=== PATIENT | male | born 1950 | race Caucasian/White ===

== ENCOUNTER 2022-01-11 19:48 | Observation (INO) | payer OTHER ==
--- OUTSIDE RECORDS SUMMARY | 2022-01-11 19:58 | XMS REPORT | Continuity of Care Document ---
:1950 Author Organization [facility] t Address [address] [place] [address] Care Team Providers Name Role Phone DOROTHY MARSHALL Attending Clinician Unavailable Luis Alberto RAND, Horacio Calhoun Attending Clinician Solo De La Rosa Attending Clinician Dorothy Marshall MD Attending Clinician Manny Cooper CRNA Attending Clinician Jon Mcbride MD Attending Clinician Only, Adc Test Attending Clinician Unavailable Doctor Unassigned, [place] Attending Clinician Unavailable Gramm Rosetta ALLEN Attending Clinician DOROTHY MARSHALL Admitting Clinician Unavailable Dorothy Marshall MD Admitting Clinician Payers Payer Name Policy Type Policy Number Effective Date Expiration Date S [facility] [place] \\T\\ [id number] 2017 B 00:00:00 [employer] TRADITIONAL [id number] 2018 00:00:00 Problems Condition Condition Condition Status Onset Resolution Last Treating Co mments Source Name Details Category Date Date Treatment Clinician Date Screening Screening Disease Active Overview: Univers for colon for colon 09-10 Added ity of cancer cancer 00:00: automatic [place] [id number] ally from Medical request Branch for surgery [id number] Essential Essential Disease Active Uni vers hypertensi hypertensi 05-18 it y of on on 00:00: [place] [address] Medical Branch Hypothyroi Hypothyroi Disease Active U nivers d d 05-18 ity of 00:00: [place] [address] Medical Branch Type 2 Type 2 Disease Active Univers diabetes diabetes 1-26 ity of mellitus mellitus 00:00: [place] without without 00 Medical complicati complicati Br anch on on Allergies, Adverse Reactions, Alerts Allergy Allergy Status Severity Reaction(s) Onset Inactive Treating Comm ents Source Name Type Date Date Clinician [place] DRUG Active Rash 2014-04 Univers NE HCL INGREDI 0-27 ity of 00:00: [place] 00 Medical Branch Meperidi Propensi Active Rash 2014-04 Univer s ne Hcl ty to 0-27 ity of adverse 00:00: [place] reaction 00 Medical s Branch Social History Social Habit Start Date Stop Date Quantity Comments Source Exposure to Not sure [facility] SARS-CoV-2 (event) [facility] History of tobacco Cigarette Smoker University of use [facility] Cigarettes smoked 2019-10-14 2019-10-14 Univers ity of current (pack per 00:00:00 00:00:00 [place] ) - Reported Branch Alcohol intake 2019-10-14 2019-10-14 Current drinker Unive rsity of 00:00:00 00:00:[address] [facility] (finding) [place] Tobacco use and 2019-10-14 2019-10-14 Never used Universit y of exposure 00:00:00 00:00:00 [facility] Alcohol Comment 2015-05-18 2015-05-18 occ Universit y of 00:00:00 00:00:00 [facility] Sex [birth year] Universit y of 00:00:00 00:00:00 [facility] Smoking Status Start Date Stop Date Source Current every day smoker 2019-10-14 00:00:00 Uni versity of [facility] Medications Ordered Filled Start Stop Current Ordering Indication Dosage Frequency Signature Comments Components Source Medication Medication Date Date Medication? Clinician (SIG) Name Name DICLOFENAC Yes [id number] TAKE ONE Univers 75 mg EC 3-30 TABLET BY ity of tablet 00:00: MOUTH 00 TWICE A Medical DAY WITH Branch FOOD DICLOFENAC Yes [id number] TAKE ONE Univers 75 mg EC 3-30 TABLET BY ity of tablet 00:00: MOUTH 00 TWICE A Medical DAY WITH Branch FOOD DICLOFENAC Yes [id number] TAKE ONE Univers 75 mg EC 3-30 TABLET BY ity of tablet 00:00: MOUTH 00 TWICE A Medical DAY WITH Branch FOOD DICLOFENAC 2021-0 Yes [id number] TAKE ONE Univers 75 mg EC 3-24 TABLET BY ity of tablet 00:00: MOUTH [place] 00 TWICE A Medical DAY WITH Branch FOOD DICLOFENAC 2020-0 Yes [id number] TAKE ONE Univers 75 mg EC 3-24 TABLET BY ity of tablet 00:00: MOUTH [place] 00 TWICE A Medical DAY WITH Branch FOOD DICLOFENAC 2020-0 2021- No [id number] TAKE ONE Univers 75 mg EC 3-24 03-30 TABLET BY ity o f tablet 00:00: 00:00 MOUTH [place] 00 :00 TWICE A Medical DAY WITH Branch FOOD azithromyci 2020-0 Yes [id number] 500mg Take 1 Univers n 500 mg 3-08 tablet by ity of tablet 00:00: mouth [place] 00 daily. Medical Branch azithromyci 2020-0 Yes [id number] 500mg Take 1 Univers n 500 mg 3-08 tablet by ity of tablet 00:00: mouth [place] 00 daily. Medical Branch azithromyci 2020-0 Yes [id number] 500mg Take 1 Univers n 500 mg 3-08 tablet by ity of tablet 00:00: mouth [place] 00 daily. Medical Branch azithromyci 2020-0 Yes [id number] 500mg Take 1 Univers n 500 mg 3-08 tablet by ity of tablet 00:00: mouth [place] 00 daily. Medical Branch azithromyci 2020-0 Yes [id number] 500mg Take 1 Univers n 500 mg 3-08 tablet by ity of tablet 00:00: mouth [place] 00 daily. Medical Branch azithromyci 2020-0 Yes [id number] 500mg Take 1 Univers n 500 mg 3-08 tablet by ity of tablet 00:00: mouth [place] 00 daily. Medical Branch DICLOFENAC 2020-0 Yes [id number] TAKE ONE Univers 75 mg EC 2-23 TABLET BY ity of tablet 00:00: MOUTH [place] 00 TWICE A Medical DAY WITH Branch FOOD DICLOFENAC 2020-0 Yes [id number] TAKE ONE Univers 75 mg EC 2-23 TABLET BY ity of tablet 00:00: MOUTH [place] 00 TWICE A Medical DAY WITH Branch FOOD DICLOFENAC 1-0 1- No [id number] TAKE ONE Univers 75 mg EC 2-23 03-24 TABLET BY ity o f tablet 00:00: 00:00 MOUTH [place] 00 :00 TWICE A Medical DAY WITH Branch FOOD DICLOFENAC 2021-0 Yes [id number] TAKE ONE Univers 75 mg EC 1-13 TABLET BY ity of tablet 00:00: MOUTH [place] 00 TWICE A Medical DAY WITH Branch FOOD DICLOFENAC 1-0 2021- No [id number] TAKE ONE Univers 75 mg EC 1-13 - TABLET BY ity o f tablet 00:00: 00:00 MOUTH [place] 00 :00 TWICE A Medical DAY WITH Branch FOOD DICLOFENAC 2020-1 Yes [id number] TAKE ONE Univers 75 mg EC 2-11 TABLET BY ity of tablet 00:00: MOUTH [place] 00 TWICE A Medical DAY WITH Branch FOOD DICLOFENAC 2020-1 2020- No [id number] TAKE ONE Univers 75 mg EC 2-11 - TABLET BY ity o f tablet 00:00: 00:00 MOUTH [place] 00 :00 TWICE A Medical DAY WITH Branch FOOD TRIAMCINOLO 2020-1 Yes [id number] APPLY U nivers NE 2-09 CREAM ity of ACETONIDE 00:00: EXTERNALLY [place] 0.1 % cream 00 TO Medical AFFECTED Branch AREA TWICE DAILY MIX WITH CLOTRIMAZO LE TRIAMCINOLO 2020-1 Yes [id number] APPLY U nivers NE 2-09 CREAM ity of ACETONIDE 00:00: EXTERNALLY [place] 0.1 % cream 00 TO Medical AFFECTED Branch AREA TWICE DAILY MIX WITH CLOTRIMAZO LE TRIAMCINOLO 2020-1 Yes [id number] APPLY U nivers NE 2-09 CREAM ity of ACETONIDE 00:00: EXTERNALLY [place] 0.1 % cream 00 TO Medical AFFECTED Branch AREA TWICE DAILY MIX WITH CLOTRIMAZO LE TRIAMCINOLO 2020-1 Yes [id number] APPLY U nivers NE 2-09 CREAM ity of ACETONIDE 00:00: EXTERNALLY [place] 0.1 % cream 00 TO Medical AFFECTED Branch AREA TWICE DAILY MIX WITH CLOTRIMAZO LE TRIAMCINOLO 2020-1 Yes [id number] APPLY U nivers NE 2-09 CREAM ity of ACETONIDE 00:00: EXTERNALLY [place] 0.1 % cream 00 TO Medical AFFECTED Branch AREA TWICE DAILY MIX WITH CLOTRIMAZO LE TRIAMCINOLO 2020-1 Yes [id number] APPLY U nivers NE 2-09 CREAM ity of ACETONIDE 00:00: EXTERNALLY [place] 0.1 % cream 00 TO Medical AFFECTED Branch AREA TWICE DAILY MIX WITH CLOTRIMAZO LE TRIAMCINOLO 2020-1 Yes [id number] APPLY U nivers NE 2-09 CREAM ity of ACETONIDE 00:00: EXTERNALLY [place] 0.1 % cream 00 TO Medical AFFECTED Branch AREA TWICE DAILY MIX WITH CLOTRIMAZO LE TRIAMCINOLO 2020-1 Yes [id number] APPLY U nivers NE 2-09 CREAM ity of ACETONIDE 00:00: EXTERNALLY [place] 0.1 % cream 00 TO Medical AFFECTED Branch AREA TWICE DAILY MIX WITH CLOTRIMAZO LE TRIAMCINOLO 2020- Yes [id number] APPLY U nivers NE 2-09 CREAM ity of ACETONIDE 00:00: EXTERNALLY [place] 0.1 % cream 00 TO Medical AFFECTED Branch AREA TWICE DAILY MIX WITH CLOTRIMAZO LE TRIAMCINOLO 2020- Yes [id number] APPLY U nivers NE 2-09 CREAM ity of ACETONIDE 00:00: EXTERNALLY [place] 0.1 % cream 00 TO Medical AFFECTED Branch AREA TWICE DAILY MIX WITH CLOTRIMAZO LE TRIAMCINOLO 2020- Yes [id number] APPLY U nivers NE 2-09 CREAM ity of ACETONIDE 00:00: EXTERNALLY [place] 0.1 % cream 00 TO Medical AFFECTED Branch AREA TWICE DAILY MIX WITH CLOTRIMAZO LE DICLOFENAC 2020- Yes [id number] TAKE ONE Univers 75 mg EC 1-17 TABLET BY ity of tablet 00:00: MOUTH [place] 00 TWICE A Medical DAY WITH [place] FOOD DICLOFENAC 2020-1 Yes [id number] TAKE ONE Univers 75 mg EC 1-17 TABLET BY ity of tablet 00:00: MOUTH [place] 00 TWICE A Medical DAY WITH Branch FOOD DICLOFENAC 2020-1 Yes [id number] TAKE ONE Univers 75 mg EC 1-17 TABLET BY ity of tablet 00:00: MOUTH [place] 00 TWICE A Medical DAY WITH Branch FOOD DICLOFENAC 2020-1 2020- No [id number] TAKE ONE Univers 75 mg EC 1-17 12-11 TABLET BY ity o f tablet 00:00: 00:00 MOUTH [place] 00 :00 TWICE A Medical DAY WITH Branch FOOD DICLOFENAC 2020-1 Yes [id number] TAKE ONE Univers 75 mg EC 0-13 TABLET BY ity of tablet 00:00: MOUTH [place] 00 TWICE A Medical DAY WITH Branch FOOD DICLOFENAC 2020-1 2020- No [id number] TAKE ONE Univers 75 mg EC 0-13 11-17 TABLET BY ity o f tablet 00:00: 00:00 MOUTH [place] 00 :00 TWICE A Medical DAY WITH [place] FOOD DICLOFENAC 2020-0 Yes [id number] TAKE ONE Univers 75 mg EC 9-09 TABLET BY ity of tablet 00:00: MOUTH [place] 00 TWICE A Medical DAY WITH Branch FOOD DICLOFENAC 2020-0 2020- No [id number] TAKE ONE Univers 75 mg EC 9-09 10-13 TABLET BY ity o f tablet 00:00: 00:00 MOUTH [place] 00 :00 TWICE A Medical DAY WITH Branch FOOD TRIAMCINOLO 2020-0 Yes [id number] APPLY TO [facility] 8-25 AFFECTED ity of ACETONIDE 00:00: AREAS TWO [place] 0.1 % cream 00 TIMES A Medic al DAY (MIX Branch WITH CLOTRIMAZO LE) TRIAMCINOLO 2020-0 Yes [id number] APPLY TO [facility] 825 AFFECTED ity of ACETONIDE 00:00: AREAS TWO [place] 0.1 % cream 00 TIMES A Medic al DAY (MIX Branch WITH CLOTRIMAZO LE) TRIAMCINOLO 2020-0 Yes [id number] APPLY TO [facility] 8 AFFECTED ity of ACETONIDE 00:00: AREAS TWO [place] 0.1 % cream 00 TIMES A Medic al DAY (MIX Branch WITH CLOTRIMAZO LE) TRIAMCINOLO 2020-0 Yes [id number] APPLY TO [facility] 825 AFFECTED ity of ACETONIDE 00:00: AREAS TWO [place] 0.1 % cream 00 TIMES A Medic al DAY (MIX Branch WITH CLOTRIMAZO LE) TRIAMCINOLO 2020-0 2020- No [id number] APPLY TO [facility] 8- 12 AFFECTED ity of ACETONIDE 00:00: 00:00 AREAS TWO [place] 0.1 % cream 00 :00 TIMES A Medic al DAY (MIX Branch WITH CLOTRIMAZO LE) TRIAMCINOLO 2020-0 2020- No [id number] APPLY TO [facility] 8-25 12 AFFECTED ity of ACETONIDE 00:00: 00:00 AREAS TWO [place] 0.1 % cream 00 :00 TIMES A Medic al DAY (MIX Branch WITH CLOTRIMAZO LE) DICLOFENAC 2020-0 Yes [id number] TAKE ONE Univers 75 mg EC 8-10 TABLET BY ity of tablet 00:00: MOUTH [place] 00 TWICE A Medical DAY WITH Branch FOOD DICLOFENAC 2020-0 Yes [id number] TAKE ONE Univers 75 mg EC 8-10 TABLET BY ity of tablet 00:00: MOUTH [place] 00 TWICE A Medical DAY WITH [place] FOOD DICLOFENAC 2020-0 2020- No [id number] TAKE ONE Univers 75 mg EC 8-10 09-09 TABLET BY ity o f tablet 00:00: 00:00 MOUTH [place] 00 :00 TWICE A Medical DAY WITH Branch FOOD TRIAMCINOLO 2020-0 Yes [id number] APPLY TO [facility] NE 7-16 AFFECTED ity of ACETONIDE 00:00: AREAS TWO [place] 0.1 % cream 00 TIMES A Medic al DAY (MIX Branch WITH CLOTRIMAZO LE) TRIAMCINOLO 2020-0 Yes [id number] APPLY TO [facility] NE 7-16 AFFECTED ity of ACETONIDE 00:00: AREAS TWO [place] 0.1 % cream 00 TIMES A Medic al DAY (MIX Branch WITH CLOTRIMAZO LE) TRIAMCINOLO 2020-0 2020- No [id number] APPLY TO [facility] NE 7-16 08-25 AFFECTED ity of ACETONIDE 00:00: 00:00 AREAS TWO [place] 0.1 % cream 00 :00 TIMES A Medic al DAY (MIX Branch WITH CLOTRIMAZO LE) DICLOFENAC 2020-0 Yes [id number] TAKE ONE Univers 75 mg EC 7-06 TABLET BY ity of tablet 00:00: MOUTH [place] 00 TWICE A Medical DAY WITH [place] FOOD DICLOFENAC 2020-0 Yes [id number] TAKE ONE Univers 75 mg EC 7-06 TABLET BY ity of tablet 00:00: MOUTH [place] 00 TWICE A Medical DAY WITH [place] FOOD DICLOFENAC 2020-0 2020- No [id number] TAKE ONE Univers 75 mg EC 7-06 08-10 TABLET BY ity o f tablet 00:00: 00:00 MOUTH [place] 00 :00 TWICE A Medical DAY WITH [place] FOOD azithromyci 2020-0 Yes [id number] 500mg Take 1 Univers n 500 mg 6-24 tablet by ity of tablet 00:00: mouth [place] 00 daily. Medical Branch azithromyci 2020-0 Yes [id number] 500mg Take 1 Univers n 500 mg 6-24 tablet by ity of tablet 00:00: mouth [place] 00 daily. Medical [place] azithromyci 2020-0 Yes [id number] 500mg Take 1 Univers n 500 mg 6-24 tablet by ity of tablet 00:00: mouth [place] 00 daily. Medical [place] azithromyci 2020-0 Yes [id number] 500mg Take 1 Univers n 500 mg 6-24 tablet by ity of tablet 00:00: mouth [place] 00 daily. Medical Branch azithromyci 2020-0 Yes [id number] 500mg Take 1 Univers n 500 mg 6-24 tablet by ity of tablet 00:00: mouth [place] 00 daily. Medical Branch azithromyci 2020-0 Yes [id number] 500mg Take 1 Univers n 500 mg 6-24 tablet by ity of tablet 00:00: mouth [place] 00 daily. Medical Branch azithromyci 2020-0 Yes [id number] 500mg Take 1 Univers n 500 mg 6-24 tablet by ity of tablet 00:00: mouth [place] 00 daily. Medical Branch azithromyci 2020-0 Yes [id number] 500mg Take 1 Univers n 500 mg 6-24 tablet by ity of tablet 00:00: mouth [place] 00 daily. Medical Branch azithromyci 2020-0 Yes [id number] 500mg Take 1 Univers n 500 mg 6-24 tablet by ity of tablet 00:00: mouth [place] 00 daily. Medical Branch azithromyci 2020-0 Yes [id number] 500mg Take 1 Univers n 500 mg 6-24 tablet by ity of tablet 00:00: mouth [place] 00 daily. Medical Branch azithromyci 2020-0 Yes [id number] 500mg Take 1 Univers n 500 mg 6-24 tablet by ity of tablet 00:00: mouth [place] 00 daily. Medical Branch azithromyci 2020-0 Yes [id number] 500mg Take 1 Univers n 500 mg 6-24 tablet by ity of tablet 00:00: mouth [place] 00 daily. Medical Branch azithromyci 2020-0 Yes [id number] 500mg Take 1 Univers n 500 mg 6-24 tablet by ity of tablet 00:00: mouth [place] 00 daily. Medical Branch azithromyci 2020-0 2021- No [id number] 500mg Take 1 Univers n 500 mg 6-24 03-08 tablet by ity o f tablet 00:00: 00:00 mouth [place] 00 :00 daily. Medical Branch Foam 2020-0 Yes [id number] Use as Univers Bandage 6-23 directed ity of (MEPILEX) 4 00:00: [place] X 4 " Bndg 00 Medical Branch Foam 2020-0 Yes [id number] Use as Univers Bandage 6-23 directed ity of (MEPILEX) 4 00:00: [place] X 4 " Bndg 00 Medical Branch Foam 2020-0 Yes [id number] Use as Univers Bandage 6-23 directed ity of (MEPILEX) 4 00:00: [place] X 4 " Bndg Medical Branch Foam 2020-0 Yes [id number] Use as Univers Bandage 6-23 directed ity of (MEPILEX) 4 00:00: [place] X 4 " Bndg Medical Branch Foam 2020-0 Yes [id number] Use as Univers Bandage 6-23 directed ity of (MEPILEX) 4 00:00: [place] X 4 " Bndg Medical Branch Foam 2020-0 Yes [id number] Use as Univers Bandage 6-23 directed ity of (MEPILEX) 4 00:00: [place] X 4 " Bn Medical Branch Foam 2020-0 Yes [id number] Use as Univers Bandage 6-23 directed ity of (MEPILEX) 4 00:00: [place] X 4 " Bn Medical Branch Foam 2020-0 Yes [id number] Use as Univers Bandage 6-23 directed ity of (MEPILEX) 4 00:00: [place] X 4 " Bn Medical Branch Foam 2020-0 Yes [id number] Use as Univers Bandage 6-23 directed ity of (MEPILEX) 4 00:00: [place] X 4 " Bn Medical Branch Foam 2020-0 Yes [id number] Use as Univers Bandage 6-23 directed ity of (MEPILEX) 4 00:00: [place] X 4 " Bn Medical Branch Foam 2020-0 Yes [id number] Use as Univers Bandage 6-23 directed ity of (MEPILEX) 4 00:00: [place] X 4 " Bn Medical Branch Foam 2020-0 Yes [id number] Use as Univers Bandage 6-23 directed ity of (MEPILEX) 4 00:00: [place] X 4 " Bndg Medical Branch Foam 2020-0 Yes [id number] Use as Univers Bandage 6-23 directed ity of (MEPILEX) 4 00:00: [place] X 4 " Bndg Medical Branch Foam 2020-0 Yes [id number] Use as Univers Bandage 6-23 directed ity of (MEPILEX) 4 00:00: [place] X 4 " Bndg Medical Branch Foam 2020-0 Yes [id number] Use as Univers Bandage 6-23 directed ity of (MEPILEX) 4 00:00: [place] X 4 " Bn Medical Branch Foam 2020-0 Yes [id number] Use as Univers Bandage 6-23 directed ity of (MEPILEX) 4 00:00: [place] X 4 " Bndg Medical Branch Foam 2019-0 Yes [id number] Use as Univers Bandage 6-23 directed ity of (MEPILEX) 4 00:00: [place] X 4 " Bndg Medical Branch Foam 2019-0 Yes [id number] Use as Univers Bandage 6-23 directed ity of (MEPILEX) 4 00:00: [place] X 4 " Bn Medical Branch Foam 2019-0 Yes [id number] Use as Univers Bandage 6-23 directed ity of (MEPILEX) 4 00:00: [place] X 4 " Bn Medical Branch Foam 2019-0 Yes [id number] Use as Univers Bandage 6-23 directed ity of (MEPILEX) 4 00:00: [place] X 4 " [facility] Medical Branch Foam 0 Yes [id number] Use as Univers Bandage 6-23 directed ity of (MEPILEX) 4 00:00: [place] X 4 " [facility] Medical Branch losartan-hy 2020-0 Yes 1{tbl} Take 1 Tab Univers drochloroth 6-05 by mouth ity of iazide 18:15: daily. [place] (HYZAAR) 18 Medical 100-25 mg Branch per tablet carvedilol 2019-0 Yes 6.25mg Take 6.25 Univers (COREG) 6-05 mg by ity of 6.25 mg 18:15: mouth 2 [place] tablet 18 (two) Medical times Branch daily with meals. levothyroxi 2020-0 Yes 100ug Take 100 U nivers ne 6-05 mcg by ity of (SYNTHROID) 18:15: mouth [place] 75 mcg 18 every Medical tablet morning. Branch Liraglutide 2019-0 Yes inject Univ ers (VICTOZA 6-05 under the ity of 2-TALA) 0.6 18:15: skin. [place] mg/0.1 mL 18 Medical (18 mg/3 Branch mL) injection metFORMIN 2019-0 Yes 500mg Take 500 Uni vers 500 mg 6-05 mg by ity of tablet 18:15: mouth 2 [place] 18 (two) Medical times Branch daily with meals. ERGOCALCIFE 2020-0 Yes Take by Uni vers ROL, 6-05 mouth. ity of VITAMIN D2, 18:15: [place] (VITAMIN D 18 Medical ORAL) Branch vitamin 2020-0 Yes 1000ug Take 1,000 Un shanae B-12 6-05 mcg by ity of (VITAMIN 18:15: mouth [place] B-12) 1,000 18 daily. Medica l mcg tablet Branch losartan-hy 2020-0 Yes 1{tbl} Take 1 Tab Univers drochloroth 6-05 by mouth ity of iazide 18:15: daily. [place] (HYZAAR) 18 Medical 100-25 mg Branch per tablet carvedilol 2020-0 Yes 6.25mg Take 6.25 Univers (COREG) 6-05 mg by ity of 6.25 mg 18:15: mouth 2 [place] tablet 18 (two) Medical times Branch daily with meals. levothyroxi 2020-0 Yes 100ug Take 100 U nivers ne 6-05 mcg by ity of (SYNTHROID) 18:15: mouth [place] 75 mcg 18 every Medical tablet morning. Branch Liraglutide 2020-0 Yes inject Univ ers (VICTOZA 6-05 under the ity of 2-TALA) 0.6 18:15: skin. [place] mg/0.1 mL 18 Medical (18 mg/3 Branch mL) injection metFORMIN 2020-0 Yes 500mg Take 500 Uni vers 500 mg 6-05 mg by ity of tablet 18:15: mouth 2 [place] 18 (two) Medical times Branch daily with meals. ERGOCALCIFE 2020-0 Yes Take by Uni vers ROL, 6-05 mouth. ity of VITAMIN D2, 18:15: [place] (VITAMIN D 18 Medical ORAL) Branch vitamin 2020-0 Yes 1000ug Take 1,000 Un shanae B-12 6-05 mcg by ity of (VITAMIN 18:15: mouth [place] B-12) 1,000 18 daily. Medica l mcg tablet Branch losartan-hy 2020-0 Yes 1{tbl} Take 1 Tab Univers drochloroth 6-05 by mouth ity of iazide 18:15: daily. [place] (HYZAAR) 18 Medical 100-25 mg Branch per tablet carvedilol 2020-0 Yes 6.25mg Take 6.25 Univers (COREG) 6-05 mg by ity of 6.25 mg 18:15: mouth 2 [place] tablet 18 (two) Medical times Branch daily with meals. levothyroxi 2020-0 Yes 100ug Take 100 U nivers ne 6-05 mcg by ity of (SYNTHROID) 18:15: mouth [place] 75 mcg 18 every Medical tablet morning. Branch Liraglutide 2020-0 Yes inject Univ ers (VICTOZA 6-05 under the ity of 2-TALA) 0.6 18:15: skin. [place] mg/0.1 mL 18 Medical (18 mg/3 Branch mL) injection metFORMIN 2020-0 Yes 500mg Take 500 Uni vers 500 mg 6-05 mg by ity of tablet 18:15: mouth 2 [place] 18 (two) Medical times Branch daily with meals. ERGOCALCIFE 2020-0 Yes Take by Uni vers ROL, 6-05 mouth. ity of VITAMIN D2, 18:15: [place] (VITAMIN D 18 Medical ORAL) Branch vitamin 2020-0 Yes 1000ug Take 1,000 Un shanae B-12 6-05 mcg by ity of (VITAMIN 18:15: mouth [place] B-12) 1,000 18 daily. Medica l mcg tablet Branch losartan-hy 2020-0 Yes 1{tbl} Take 1 Tab Univers drochloroth 6-05 by mouth ity of iazide 18:15: daily. [place] (HYZAAR) 18 Medical 100-25 mg Branch per tablet carvedilol 2020-0 Yes 6.25mg Take 6.25 Univers (COREG) 6-05 mg by ity of 6.25 mg 18:15: mouth 2 [place] tablet 18 (two) Medical times Branch daily with meals. levothyroxi 2020-0 Yes 100ug Take 100 U nivers ne 6-05 mcg by ity of (SYNTHROID) 18:15: mouth [place] 75 mcg 18 every Medical tablet morning. Branch Liraglutide 2020-0 Yes inject Univ ers (VICTOZA 6-05 under the ity of 2-TALA) 0.6 18:15: skin. [place] mg/0.1 mL 18 Medical (18 mg/3 Branch mL) injection metFORMIN 2020-0 Yes 500mg Take 500 Uni vers 500 mg 6-05 mg by ity of tablet 18:15: mouth 2 [place] 18 (two) Medical times Branch daily with meals. ERGOCALCIFE 2020-0 Yes Take by Uni vers ROL, 6-05 mouth. ity of VITAMIN D2, 18:15: [place] (VITAMIN D 18 Medical ORAL) Branch vitamin 2020-0 Yes 1000ug Take 1,000 Un shanae B-12 6-05 mcg by ity of (VITAMIN 18:15: mouth [place] B-12) 1,000 18 daily. Medica l mcg tablet Branch losartan-hy 2020-0 Yes 1{tbl} Take 1 Tab Univers drochloroth 6-05 by mouth ity of iazide 18:15: daily. [place] (HYZAAR) 18 Medical 100-25 mg Branch per tablet carvedilol 2020-0 Yes 6.25mg Take 6.25 Univers (COREG) 6-05 mg by ity of 6.25 mg 18:15: mouth 2 [place] tablet 18 (two) Medical times Branch daily with meals. levothyroxi 2020-0 Yes 100ug Take 100 U nivers ne 6-05 mcg by ity of (SYNTHROID) 18:15: mouth [place] 75 mcg 18 every Medical tablet morning. Branch Liraglutide 2020-0 Yes inject Univ ers (VICTOZA 6-05 under the ity of 2-TALA) 0.6 18:15: skin. [place] mg/0.1 mL 18 Medical (18 mg/3 Branch mL) injection metFORMIN 2020-0 Yes 500mg Take 500 Uni vers 500 mg 6-05 mg by ity of tablet 18:15: mouth 2 [place] 18 (two) Medical times Branch daily with meals. ERGOCALCIFE 2020-0 Yes Take by Uni vers ROL, 6-05 mouth. ity of VITAMIN D2, 18:15: [place] (VITAMIN D 18 Medical ORAL) Branch vitamin 2020-0 Yes 1000ug Take 1,000 Un shanae B-12 6-05 mcg by ity of (VITAMIN 18:15: mouth [place] B-12) 1,000 18 daily. Medica l mcg tablet Branch losartan-hy 2020-0 Yes 1{tbl} Take 1 Tab Univers drochloroth 6-05 by mouth ity of iazide 18:15: daily. [place] (HYZAAR) 18 Medical 100-25 mg Branch per tablet carvedilol 2020-0 Yes 6.25mg Take 6.25 Univers (COREG) 6-05 mg by ity of 6.25 mg 18:15: mouth 2 [place] tablet 18 (two) Medical times Branch daily with meals. levothyroxi 2020-0 Yes 100ug Take 100 U nivers ne 6-05 mcg by ity of (SYNTHROID) 18:15: mouth [place] 75 mcg 18 every Medical tablet morning. Branch Liraglutide 2020-0 Yes inject Univ ers (VICTOZA 6-05 under the ity of 2-TALA) 0.6 18:15: skin. [place] mg/0.1 mL 18 Medical (18 mg/3 Branch mL) injection metFORMIN 2020-0 Yes 500mg Take 500 Uni vers 500 mg 6-05 mg by ity of tablet 18:15: mouth 2 [place] 18 (two) Medical times Branch daily with meals. ERGOCALCIFE 2020-0 Yes Take by Uni vers ROL, 6-05 mouth. ity of VITAMIN D2, 18:15: [place] (VITAMIN D 18 Medical ORAL) Branch vitamin 2020-0 Yes 1000ug Take 1,000 Un shanae B-12 6-05 mcg by ity of (VITAMIN 18:15: mouth [place] B-12) 1,000 18 daily. Medica l mcg tablet Branch losartan-hy 2020-0 Yes 1{tbl} Take 1 Tab Univers drochloroth 6-05 by mouth ity of iazide 18:15: daily. [place] (HYZAAR) 18 Medical 100-25 mg Branch per tablet carvedilol 2020-0 Yes 6.25mg Take 6.25 Univers (COREG) 6-05 mg by ity of 6.25 mg 18:15: mouth 2 [place] tablet 18 (two) Medical times Branch daily with meals. levothyroxi 2020-0 Yes 100ug Take 100 U nivers ne 6-05 mcg by ity of (SYNTHROID) 18:15: mouth [place] 75 mcg 18 every Medical tablet morning. Branch Liraglutide 2020-0 Yes inject Univ ers (VICTOZA 6-05 under the ity of 2-TALA) 0.6 18:15: skin. [place] mg/0.1 mL 18 Medical (18 mg/3 Branch mL) injection metFORMIN 2020-0 Yes 500mg Take 500 Uni vers 500 mg 6-05 mg by ity of tablet 18:15: mouth 2 [place] 18 (two) Medical times Branch daily with meals. ERGOCALCIFE 2020-0 Yes Take by Uni vers ROL, 6-05 mouth. ity of VITAMIN D2, 18:15: [place] (VITAMIN D 18 Medical ORAL) Branch vitamin 2020-0 Yes 1000ug Take 1,000 Un shanae B-12 6-05 mcg by ity of (VITAMIN 18:15: mouth [place] B-12) 1,000 18 daily. Medica l mcg tablet Branch losartan-hy 2020-0 Yes 1{tbl} Take 1 Tab Univers drochloroth 6-05 by mouth ity of iazide 18:15: daily. [place] (HYZAAR) 18 Medical 100-25 mg Branch per tablet carvedilol 2020-0 Yes 6.25mg Take 6.25 [facility] (COREG) 6-05 mg by ity of 6.25 mg 18:15: mouth 2 [place] tablet 18 (two) Medical times Branch daily with meals. levothyroxi 2020-0 Yes 100ug Take 100 U nivers ne 6-05 mcg by ity of (SYNTHROID) 18:15: mouth [place] 75 mcg 18 every Medical tablet morning. Branch Liraglutide 2020-0 Yes inject Univ ers (VICTOZA 6-05 under the ity of 2-TALA) 0.6 18:15: skin. [place] mg/0.1 mL 18 Medical (18 mg/3 Branch mL) injection metFORMIN 2020-0 Yes 500mg Take 500 Uni vers 500 mg 6-05 mg by ity of tablet 18:15: mouth 2 [place] 18 (two) Medical times Branch daily with meals. ERGOCALCIFE 2020-0 Yes Take by Uni vers ROL, 6-05 mouth. ity of VITAMIN D2, 18:15: [place] (VITAMIN D 18 Medical ORAL) Branch vitamin 2020-0 Yes 1000ug Take 1,000 Un shanae B-12 6-05 mcg by ity of (VITAMIN 18:15: mouth [place] B-12) 1,000 18 daily. Medica l mcg tablet Branch losartan-hy 2020-0 Yes 1{tbl} Take 1 Tab [facility] drochloroth 6-05 by mouth ity of iazide 18:15: daily. [place] (HYZAAR) 18 Medical 100-25 mg Branch per tablet carvedilol 2020-0 Yes 6.25mg Take 6.25 [facility] (COREG) 6-05 mg by ity of 6.25 mg 18:15: mouth 2 [place] tablet 18 (two) Medical times Branch daily with meals. levothyroxi 2020-0 Yes 100ug Take 100 U nivers ne 6-05 mcg by ity of (SYNTHROID) 18:15: mouth [place] 75 mcg 18 every Medical tablet morning. Branch Liraglutide 2020-0 Yes inject Univ ers (VICTOZA 6-05 under the ity of 2-TALA) 0.6 18:15: skin. [place] mg/0.1 mL 18 Medical (18 mg/3 Branch mL) injection metFORMIN 2020-0 Yes 500mg Take 500 Uni vers 500 mg 6-05 mg by ity of tablet 18:15: mouth 2 [place] 18 (two) Medical times Branch daily with meals. ERGOCALCIFE 2020-0 Yes Take by Uni vers ROL, 6-05 mouth. ity of VITAMIN D2, 18:15: [place] (VITAMIN D 18 Medical ORAL) Branch vitamin 2020-0 Yes 1000ug Take 1,000 Un shanae B-12 6-05 mcg by ity of (VITAMIN 18:15: mouth [place] B-12) 1,000 18 daily. Medica l mcg tablet Branch losartan-hy 2020-0 Yes 1{tbl} Take 1 Tab [facility] drochloroth 6-05 by mouth ity of iazide 18:15: daily. [place] (HYZAAR) 18 Medical 100-25 mg Branch per tablet carvedilol 2020-0 Yes 6.25mg Take 6.25 [facility] (COREG) 6-05 mg by ity of 6.25 mg 18:15: mouth 2 [place] tablet 18 (two) Medical times Branch daily with meals. levothyroxi 2020-0 Yes 100ug Take 100 U nivers ne 6-05 mcg by ity of (SYNTHROID) 18:15: mouth [place] 75 mcg 18 every Medical tablet morning. Branch Liraglutide 2020-0 Yes inject [facility] ers (VICTOZA 6-05 under the ity of 2-TALA) 0.6 18:15: skin. [place] mg/0.1 mL 18 Medical (18 mg/3 Branch mL) injection metFORMIN 2020-0 Yes 500mg Take 500 [facility] vers 500 mg 6-05 mg by ity of tablet 18:15: mouth 2 [place] 18 (two) Medical times Branch daily with meals. ERGOCALCIFE 2020-0 Yes Take by Uni vers ROL, 6-05 mouth. ity of VITAMIN D2, 18:15: [place] (VITAMIN D 18 Medical ORAL) Branch vitamin 2020-0 Yes 1000ug Take 1,000 Un [place]ana[place] B-12 6-05 mcg by ity of (VITAMIN 18:15: mouth [place] B-12) 1,000 18 daily. Medica l mcg tablet Branch losartan-hy 2020-0 Yes 1{tbl} Take 1 Tab [facility] drochloroth 6-05 by mouth ity of iazide 18:15: daily. [place] (HYZAAR) 18 Medical 100-25 mg Branch per tablet carvedilol 2020-0 Yes 6.25mg Take 6.25 [facility] (COREG) 6-05 mg by ity of 6.25 mg 18:15: mouth 2 [place] tablet 18 (two) Medical times Branch daily with meals. levothyroxi 2020-0 Yes 100ug Take 100 U nivers ne 6-05 mcg by ity of (SYNTHROID) 18:15: mouth [place] 75 mcg 18 every Medical tablet morning. Branch Liraglutide 2020-0 Yes inject [facility] ers (VICTOZA 6-05 under the ity of 2-TALA) 0.6 18:15: skin. [place] mg/0.1 mL 18 Medical (18 mg/3 Branch mL) injection metFORMIN 2020-0 Yes 500mg Take 500 [facility] vers 500 mg 6-05 mg by ity of tablet 18:15: mouth 2 [place] 18 (two) Medical times Branch daily with meals. ERGOCALCIFE 2020-0 Yes Take by Uni vers ROL, 6-05 mouth. ity of VITAMIN D2, 18:15: [place] (VITAMIN D 18 Medical ORAL) Branch vitamin 2020-0 Yes 1000ug Take 1,000 Un shana[place] B-12 6-05 mcg by ity of (VITAMIN 18:15: mouth [place] B-12) 1,000 18 daily. Medica l mcg tablet Branch losartan-hy 2020-0 Yes 1{tbl} Take 1 Tab [facility] drochloroth 6-05 by mouth ity of iazide 18:15: daily. [place] (HYZAAR) 18 Medical 100-25 mg Branch per tablet carvedilol 2020-0 Yes 6.25mg Take 6.25 [facility] (COREG) 6-05 mg by ity of 6.25 mg 18:15: mouth 2 [place] tablet 18 (two) Medical times Branch daily with meals. levothyroxi 2020-0 Yes 100ug Take 100 U nivers ne 6-05 mcg by ity of (SYNTHROID) 18:15: mouth [place] 75 mcg 18 every Medical tablet morning. Branch Liraglutide 2020-0 Yes inject [facility] ers (VICTOZA 6-05 under the ity of 2-TALA) 0.6 18:15: skin. [place] mg/0.1 mL 18 Medical (18 mg/3 Branch mL) injection metFORMIN 2020-0 Yes 500mg Take 500 [facility] vers 500 mg 6-05 mg by ity of tablet 18:15: mouth 2 [place] 18 (two) Medical times Branch daily with meals. ERGOCALCIFE 2020-0 Yes Take by Uni vers ROL, 6-05 mouth. ity of VITAMIN D2, 18:15: [place] (VITAMIN D 18 Medical ORAL) Branch vitamin 2020-0 Yes 1000ug Take 1,000 Un [place] B-12 6-05 mcg by ity of (VITAMIN 18:15: mouth [place] B-12) 1,000 18 daily. Medica l mcg tablet Branch losartan-hy 2020-0 Yes 1{tbl} Take 1 Tab [facility] drochloroth 6-05 by mouth ity of iazide 18:15: daily. [place] (HYZAAR) 18 Medical 100-25 mg Branch per tablet carvedilol 2020-0 Yes 6.25mg Take 6.25 [facility] (COREG) 6-05 mg by ity of 6.25 mg 18:15: mouth 2 [place] tablet 18 (two) Medical times Branch daily with meals. levothyroxi 2020-0 Yes 100ug Take 100 U nivers ne 6-05 mcg by ity of (SYNTHROID) 18:15: mouth [place] 75 mcg 18 every Medical tablet morning. Branch Liraglutide 2020-0 Yes inject [facility] ers (VICTOZA 6-05 under the ity of 2-TALA) 0.6 18:15: skin. [place] mg/0.1 mL 18 Medical (18 mg/3 Branch mL) injection metFORMIN 2020-0 Yes 500mg Take 500 [facility] vers 500 mg 6-05 mg by ity of tablet 18:15: mouth 2 [place] 18 (two) Medical times Branch daily with meals. ERGOCALCIFE 2020-0 Yes Take by Uni vers ROL, 6-05 mouth. ity of VITAMIN D2, 18:15: [place] (VITAMIN D 18 Medical ORAL) Branch vitamin 2020-0 Yes 1000ug Take 1,000 Un [place] B-12 6-05 mcg by ity of (VITAMIN 18:15: mouth [place] B-12) 1,000 18 daily. Medica l mcg tablet Branch losartan-hy 2020-0 Yes 1{tbl} Take 1 Tab [facility] drochloroth 6-05 by mouth ity of iazide 18:15: daily. [place] (HYZAAR) 18 Medical 100-25 mg Branch per tablet carvedilol 2020-0 Yes 6.25mg Take 6.25 [facility] (COREG) 6-05 mg by ity of 6.25 mg 18:15: mouth 2 [place] tablet 18 (two) Medical times Branch daily with meals. levothyroxi 2020-0 Yes 100ug Take 100 U nivers ne 6-05 mcg by ity of (SYNTHROID) 18:15: mouth [place] 75 mcg 18 every Medical tablet morning. Branch Liraglutide 2020-0 Yes inject [facility] ers (VICTOZA 6-05 under the ity of 2-TALA) 0.6 18:15: skin. [place] mg/0.1 mL 18 Medical (18 mg/3 Branch mL) injection metFORMIN 2020-0 Yes 500mg Take 500 [facility] vers 500 mg 6-05 mg by ity of tablet 18:15: mouth 2 [place] 18 (two) Medical times Branch daily with meals. ERGOCALCIFE 2020-0 Yes Take by Uni vers ROL, 6-05 mouth. ity of VITAMIN D2, 18:15: [place] (VITAMIN D 18 Medical ORAL) Branch vitamin 2020-0 Yes 1000ug Take 1,000 Un [place]ana[place] B-12 6-05 mcg by ity of (VITAMIN 18:15: mouth [place] B-12) 1,000 18 daily. Medica l mcg tablet Branch losartan-hy 2020-0 Yes 1{tbl} Take 1 Tab [facility] drochloroth 6-05 by mouth ity of iazide 18:15: daily. [place] (HYZAAR) 18 Medical 100-25 mg Branch per tablet carvedilol 2020-0 Yes 6.25mg Take 6.25 [facility] (COREG) 6-05 mg by ity of 6.25 mg 18:15: mouth 2 [place] tablet 18 (two) Medical times Branch daily with meals. levothyroxi 2020-0 Yes 100ug Take 100 U nivers ne 6-05 mcg by ity of (SYNTHROID) 18:15: mouth [place] 75 mcg 18 every Medical tablet morning. Branch Liraglutide 2020-0 Yes inject [facility] ers (VICTOZA 6-05 under the ity of 2-TALA) 0.6 18:15: skin. [place] mg/0.1 mL 18 Medical (18 mg/3 Branch mL) injection metFORMIN 2020-0 Yes 500mg Take 500 [facility] vers 500 mg 6-05 mg by ity of tablet 18:15: mouth 2 [place] 18 (two) Medical times Branch daily with meals. ERGOCALCIFE 2020-0 Yes Take by Uni vers ROL, 6-05 mouth. ity of VITAMIN D2, 18:15: [place] (VITAMIN D 18 Medical ORAL) Branch vitamin 2020-0 Yes 1000ug Take 1,000 Un [place] B-12 6-05 mcg by ity of (VITAMIN 18:15: mouth [place] B-12) 1,000 18 daily. Medica l mcg tablet Branch losartan-hy 2020-0 Yes 1{tbl} Take 1 Tab [facility] drochloroth 6-05 by mouth ity of iazide 18:15: daily. [place] (HYZAAR) 18 Medical 100-25 mg Branch per tablet carvedilol 2020-0 Yes 6.25mg Take 6.25 [facility] (COREG) 6-05 mg by ity of 6.25 mg 18:15: mouth 2 [place] tablet 18 (two) Medical times Branch daily with meals. levothyroxi 2020-0 Yes 100ug Take 100 U nivers ne 6-05 mcg by ity of (SYNTHROID) 18:15: mouth [place] 75 mcg 18 every Medical tablet morning. Branch Liraglutide 2020-0 Yes inject [facility] ers (VICTOZA 6-05 under the ity of 2-TALA) 0.6 18:15: skin. [place] mg/0.1 mL 18 Medical (18 mg/3 Branch mL) injection metFORMIN 2020-0 Yes 500mg Take 500 [facility] vers 500 mg 6-05 mg by ity of tablet 18:15: mouth 2 [place] 18 (two) Medical times Branch daily with meals. ERGOCALCIFE 2020-0 Yes Take by Uni vers ROL, 6-05 mouth. ity of VITAMIN D2, 18:15: [place] (VITAMIN D 18 Medical ORAL) Branch vitamin 2020-0 Yes 1000ug Take 1,000 Un [place] B-12 6-05 mcg by ity of (VITAMIN 18:15: mouth [place] B-12) 1,000 18 daily. Medica l mcg tablet Branch losartan-hy 2020-0 Yes 1{tbl} Take 1 Tab [facility] drochloroth 6-05 by mouth ity of iazide 18:15: daily. [place] (HYZAAR) 18 Medical 100-25 mg Branch per tablet carvedilol 2020-0 Yes 6.25mg Take 6.25 [facility] (COREG) 6-05 mg by ity of 6.25 mg 18:15: mouth 2 [place] tablet 18 (two) Medical times Branch daily with meals. levothyroxi 2020-0 Yes 100ug Take 100 U nivers ne 6-05 mcg by ity of (SYNTHROID) 18:15: mouth [place] 75 mcg 18 every Medical tablet morning. Branch Liraglutide 2020-0 Yes inject [facility] ers (VICTOZA 6-05 under the ity of 2-TALA) 0.6 18:15: skin. [place] mg/0.1 mL 18 Medical (18 mg/3 Branch mL) injection metFORMIN 2020-0 Yes 500mg Take 500 [facility] vers 500 mg 6-05 mg by ity of tablet 18:15: mouth 2 [place] 18 (two) Medical times Branch daily with meals. ERGOCALCIFE 2020-0 Yes Take by [facility] vers ROL, 6-05 mouth. ity of VITAMIN D2, 18:15: [place] (VITAMIN D 18 Medical ORAL) Branch vitamin 2020-0 Yes 1000ug Take 1,000 Un [place] B-12 6-05 mcg by ity of (VITAMIN 18:15: mouth [place] B-12) 1,000 18 daily. Medica l mcg tablet Branch losartan-hy 2020-0 Yes 1{tbl} Take 1 Tab [facility] drochloroth 6-05 by mouth ity of iazide 18:15: daily. [place] (HYZAAR) 18 Medical 100-25 mg Branch per tablet carvedilol 2020-0 Yes 6.25mg Take 6.25 [facility] (COREG) 6-05 mg by ity of 6.25 mg 18:15: mouth 2 [place] tablet 18 (two) Medical times Branch daily with meals. levothyroxi 2020-0 Yes 100ug Take 100 U nivers ne 6-05 mcg by ity of (SYNTHROID) 18:15: mouth [place] 75 mcg 18 every Medical tablet morning. Branch Liraglutide 2020-0 Yes inject [facility] ers (VICTOZA 6-05 under the ity of 2-TALA) 0.6 18:15: skin. [place] mg/0.1 mL 18 Medical (18 mg/3 Branch mL) injection metFORMIN 2020-0 Yes 500mg Take 500 [facility] vers 500 mg 6-05 mg by ity of tablet 18:15: mouth 2 [place] 18 (two) Medical times Branch daily with meals. ERGOCALCIFE 2020-0 Yes Take by Uni vers ROL, 6-05 mouth. ity of VITAMIN D2, 18:15: [place] (VITAMIN D 18 Medical ORAL) Branch vitamin 2020-0 Yes 1000ug Take 1,000 Un shanae B-12 6-05 mcg by ity of (VITAMIN 18:15: mouth [place] B-12) 1,000 18 daily. Medica l mcg tablet Branch losartan-hy 2020-0 Yes 1{tbl} Take 1 Tab [facility] drochloroth 6-05 by mouth ity of iazide 18:15: daily. [place] (HYZAAR) 18 Medical 100-25 mg Branch per tablet carvedilol 2020-0 Yes 6.25mg Take 6.25 [facility] (COREG) 6-05 mg by ity of 6.25 mg 18:15: mouth 2 [place] tablet 18 (two) Medical times Branch daily with meals. levothyroxi 2020-0 Yes 100ug Take 100 U nivers ne 6-05 mcg by ity of (SYNTHROID) 18:15: mouth [place] 75 mcg 18 every Medical tablet morning. Branch Liraglutide 2020-0 Yes inject [facility] ers (VICTOZA 6-05 under the ity of 2-TALA) 0.6 18:15: skin. [place] mg/0.1 mL 18 Medical (18 mg/3 Branch mL) injection metFORMIN 2020-0 Yes 500mg Take 500 [facility] vers 500 mg 6-05 mg by ity of tablet 18:15: mouth 2 [place] 18 (two) Medical times Branch daily with meals. ERGOCALCIFE 2020-0 Yes Take by Uni vers ROL, 6-05 mouth. ity of VITAMIN D2, 18:15: [place] (VITAMIN D 18 Medical ORAL) Branch vitamin 2020-0 Yes 1000ug Take 1,000 Un shanae B-12 6-05 mcg by ity of (VITAMIN 18:15: mouth [place] B-12) 1,000 18 daily. Medica l mcg tablet Branch losartan-hy 2020-0 Yes 1{tbl} Take 1 Tab [facility] drochloroth 6-05 by mouth ity of iazide 18:15: daily. [place] (HYZAAR) 18 Medical 100-25 mg Branch per tablet carvedilol 2020-0 Yes 6.25mg Take 6.25 [facility] (COREG) 6-05 mg by ity of 6.25 mg 18:15: mouth 2 [place] tablet 18 (two) Medical times Branch daily with meals. levothyroxi 2020-0 Yes 100ug Take 100 U nivers ne 6-05 mcg by ity of (SYNTHROID) 18:15: mouth [place] 75 mcg 18 every Medical tablet morning. Branch Liraglutide 2020-0 Yes inject [facility] ers (VICTOZA 6-05 under the ity of 2-TALA) 0.6 18:15: skin. [place] mg/0.1 mL 18 Medical (18 mg/3 Branch mL) injection metFORMIN 2020-0 Yes 500mg Take 500 Uni vers 500 mg 6-05 mg by ity of tablet 18:15: mouth 2 [place] 18 (two) Medical times Branch daily with meals. ERGOCALCIFE 2020-0 Yes Take by Uni vers ROL, 6-05 mouth. ity of VITAMIN D2, 18:15: [place] (VITAMIN D 18 Medical ORAL) Branch vitamin 2020-0 Yes 1000ug Take 1,000 Un [place] B-12 6-05 mcg by ity of (VITAMIN 18:15: mouth [place] B-12) 1,000 18 daily. Medica l mcg tablet Branch losartan-hy 2020-0 Yes 1{tbl} Take 1 Tab [facility] drochloroth 6-05 by mouth ity of iazide 18:15: daily. [place] (HYZAAR) 18 Medical 100-25 mg Branch per tablet carvedilol 2020-0 Yes 6.25mg Take 6.25 [facility] (COREG) 6-05 mg by ity of 6.25 mg 18:15: mouth 2 [place] tablet 18 (two) Medical times Branch daily with meals. levothyroxi 2020-0 Yes 100ug Take 100 U nivers ne 6-05 mcg by ity of (SYNTHROID) 18:15: mouth [place] 75 mcg 18 every Medical tablet morning. Branch Liraglutide 2020-0 Yes inject [facility] ers (VICTOZA 6-05 under the ity of 2-TALA) 0.6 18:15: skin. [place] mg/0.1 mL 18 Medical (18 mg/3 Branch mL) injection metFORMIN 2020-0 Yes 500mg Take 500 Uni vers 500 mg 6-05 mg by ity of tablet 18:15: mouth 2 [place] 18 (two) Medical times Branch daily with meals. ERGOCALCIFE 2020-0 Yes Take by Uni vers ROL, 6-05 mouth. ity of VITAMIN D2, 18:15: [place] (VITAMIN D 18 Medical ORAL) Branch vitamin 2020-0 Yes 1000ug Take 1,000 Un [place] B-12 6-05 mcg by ity of (VITAMIN 18:15: mouth [place] B-12) 1,000 18 daily. Medica l mcg tablet Branch losartan-hy 2020-0 Yes 1{tbl} Take 1 Tab [facility] drochloroth 6-05 by mouth ity of iazide 18:15: daily. [place] (HYZAAR) 18 Medical 100-25 mg Branch per tablet carvedilol 2020-0 Yes 6.25mg Take 6.25 [facility] (COREG) 6-05 mg by ity of 6.25 mg 18:15: mouth 2 [place] tablet 18 (two) Medical times Branch daily with meals. levothyroxi 2020-0 Yes 100ug Take 100 U nivers ne 6-05 mcg by ity of (SYNTHROID) 18:15: mouth [place] 75 mcg 18 every Medical tablet morning. Branch Liraglutide 2020-0 Yes inject [facility] ers (VICTOZA 6-05 under the ity of 2-TALA) 0.6 18:15: skin. [place] mg/0.1 mL 18 Medical (18 mg/3 Branch mL) injection metFORMIN 2020-0 Yes 500mg Take 500 Uni vers 500 mg 6-05 mg by ity of tablet 18:15: mouth 2 [place] 18 (two) Medical times Branch daily with meals. ERGOCALCIFE 2020-0 Yes Take by Uni vers ROL, 6-05 mouth. ity of VITAMIN D2, 18:15: [place] (VITAMIN D 18 Medical ORAL) Branch vitamin 2020-0 Yes 1000ug Take 1,000 Un [place] B-12 6-05 mcg by ity of (VITAMIN 18:15: mouth [place] B-12) 1,000 18 daily. Medica l mcg tablet Branch losartan-hy 2020-0 Yes 1{tbl} Take 1 Tab [facility] drochloroth 6-05 by mouth ity of iazide 18:15: daily. [place] (HYZAAR) 18 Medical 100-25 mg Branch per tablet carvedilol 2020-0 Yes 6.25mg Take 6.25 [facility] (COREG) 6-05 mg by ity of 6.25 mg 18:15: mouth 2 [place] tablet 18 (two) Medical times Branch daily with meals. levothyroxi 2020-0 Yes 100ug Take 100 U nivers ne 6-05 mcg by ity of (SYNTHROID) 18:15: mouth [place] 75 mcg 18 every Medical tablet morning. Branch Liraglutide 2020-0 Yes inject [facility] ers (VICTOZA 6-05 under the ity of 2-TALA) 0.6 18:15: skin. [place] mg/0.1 mL 18 Medical (18 mg/3 Branch mL) injection metFORMIN 2020-0 Yes 500mg Take 500 Uni vers 500 mg 6-05 mg by ity of tablet 18:15: mouth 2 [place] 18 (two) Medical times Branch daily with meals. ERGOCALCIFE 2020-0 Yes Take by Uni vers ROL, 6-05 mouth. ity of VITAMIN D2, 18:15: [place] (VITAMIN D 18 Medical ORAL) Branch vitamin 2020-0 Yes 1000ug Take 1,000 Un [place] B-12 6-05 mcg by ity of (VITAMIN 18:15: mouth [place] B-12) 1,000 18 daily. Medica l mcg tablet Branch losartan-hy 2020-0 Yes 1{tbl} Take 1 Tab [facility] drochloroth 6-05 by mouth ity of iazide 18:15: daily. [place] (HYZAAR) 18 Medical 100-25 mg Branch per tablet carvedilol 2020-0 Yes 6.25mg Take 6.25 [facility] (COREG) 6-05 mg by ity of 6.25 mg 18:15: mouth 2 [place] tablet 18 (two) Medical times Branch daily with meals. levothyroxi 2020-0 Yes 100ug Take 100 U nivers ne 6-05 mcg by ity of (SYNTHROID) 18:15: mouth [place] 75 mcg 18 every Medical tablet morning. Branch Liraglutide 2020-0 Yes inject [facility] ers (VICTOZA 6-05 under the ity of 2-TALA) 0.6 18:15: skin. [place] mg/0.1 mL 18 Medical (18 mg/3 Branch mL) injection metFORMIN 2020-0 Yes 500mg Take 500 [facility] vers 500 mg 6-05 mg by ity of tablet 18:15: mouth 2 [place] 18 (two) Medical times Branch daily with meals. ERGOCALCIFE 2020-0 Yes Take by Uni vers ROL, 6-05 mouth. ity of VITAMIN D2, 18:15: [place] (VITAMIN D 18 Medical ORAL) Branch vitamin 2020-0 Yes 1000ug Take 1,000 Un [place] B-12 6-05 mcg by ity of (VITAMIN 18:15: mouth [place] B-12) 1,000 18 daily. Medica l mcg tablet Branch lactated 2020-0 Yes 1000mL at 75 Univer s ringers IV 6-05 mL/hr, ity of infusion 17:30: 1,000 mL, [place] 1,000 mL 00 IV Medical Infusion, Branch CONTINUOUS , Starting Sun09/26/19 at 1230, Until Discontinu ed, Routine, PACU HYDROcodone 2020-0 Yes 1{tbl} 1 tablet, [facility] -acetaminop 6-05 Oral, ity of hen (NORCO 17:29: Q6HPRN, [place] 5) 5-325 mg 43 Starting Medi chip tablet 1 Sun09/26/19 Branc h tablet at 1229, Until Discontinu ed, Routine, Pain (scale 4-6), PACU ondansetron 2020-0 Yes 4mg 4 mg, Slow [facility] (ZOFRAN 6-05 IV Push, ity of (PF)) 17:29: PRN, 1 [place] injection 4 43 dose, Medical mg Starting Branch Sun09/26/19 at 1229, Until Discontinu ed, Routine, Nausea and Vomiting (N/V), PACU water for 2020-0 Yes PRN, [facility] irrigation 6-05 Starting ity o f irrigation 16:40: Sun09/26/19 [place] solution 00 at 1140, Medical Until Branch Discontinu ed, Routine, Intra-op simethicone 2020-0 Yes PRN, Univer s (GAS RELIEF 6-05 Starting ity of (SIMETHICON 16:39: Sun09/26/19 [place] E)) 40 00 at 1139, Medical mg/0.6 mL Until Branch drops Discontinu ed, Routine, Intra-op ePHEDrine 2020-0 2020- No ONCE INTRA U nivers 25 mg/5 mL 09-25 PROCEDURE, it y of (5 mg/mL) 16:28: 17:09 Starting [place] syringe 00 :24 Sun09/26/19 Medica l at 1128, Branch Until Discontinu ed, Routine, Intra-op ePHEDrine 2020-0 2020- No ONCE INTRA U nivers 25 mg/5 mL 09-25 PROCEDURE, it y of (5 mg/mL) 16:28: 17:09 Starting [place] syringe 00 :Sun09/26/19 Medica l at 1128, Branch Until Discontinu ed, Routine, Intra-op glycopyrrol 2020-0 2020- No ONCE INTRA [facility] ate 09-25 PROCEDURE, ity of (NORIINUL) 16:25: 17:09 Starting [place] injection 00 :Sun09/26/19 Medi chip at 1125, Branch Until Discontinu ed, Routine, Intra-op glycopyrrol 2020-0 2020- No ONCE INTRA [facility] ate 09-25 PROCEDURE, ity of (NORIINUL) 16:25: 17:09 Starting [place] injection 00 :Sun09/26/19 Medi chip at 1125, Branch Until Discontinu ed, Routine, Intra-op PHENYLephri 2020-0 2020- No ONCE INTRA [facility] ne 1000 09-25 PROCEDURE, ity o f mcg/10 mL 16:16: 17:09 Starting [place] in 0.9% 00 :Sun09/26/19 Medica l NaCl at 1116, Branch syringe Until Discontinu ed, Routine, Intra-op PHENYLephri 2020-0 2020- No ONCE INTRA [facility] ne 1000 09-25 PROCEDURE, ity o f mcg/10 mL 16:16: 17:09 Starting [place] in 0.9% 00 :Sun09/26/19 Medica l NaCl at 1116, Branch syringe Until Discontinu ed, Routine, Intra-op propofol IV 2020-0 2020- No CONTINUOUS [facility] infusion 09-25 PRN, ity of 16:03: 17:09 Starting [place] 00 :Sun09/26/19 Medical at 1103, Branch Until Discontinu ed, Routine, Intra-op propofol IV 2020-0 2020- No ONCE INTRA [facility] infusion 09-25 PROCEDURE, ity of 16:03: 17:09 Starting [place] 00 :Sun09/26/19 Medical at 1103, Branch Until Discontinu ed, Routine, Intra-op propofol IV 2020-0 2020- No ONCE INTRA [facility] infusion 09-25 PROCEDURE, ity of 16:03: 17:09 Starting [place] 00 :Sun09/26/19 Medical at 1103, Branch Until Discontinu ed, Routine, Intra-op midazolam 2020-0 2020- No ONCE INTRA U nivers (VERSED) 09-25 06-05 PROCEDURE, ity of injection 15:57: 17:09 Starting [place] 00 :24 Sun09/26/19 Medical at 1057, Branch Until Discontinu ed, Routine, Intra-op midazolam 2020-0 2020- No ONCE INTRA U nivers (VERSED) 09-25 06-05 PROCEDURE, ity of injection 15:57: 17:09 Starting [place] 00 :24 Sun09/26/19 Medical at 1057, Branch Until Discontinu ed, Routine, Intra-op lactated 2020-0 2020- No CONTINUOUS Un shanae ringers IV - 06-05 PRN, ity of infusion 15:55: 17:09 [place] 00 :24 Sun09/26/19 Medical at 1055, Branch Until Discontinu ed, Routine, Intra-op lactated 2020-0 2020- No CONTINUOUS Un shanae ringers IV 09-25 06-05 PRN, ity of infusion 15:55: 17:09 Starting [place] 00 :24 Sun09/26/19 Medical at 1055, Branch Until Discontinu ed, Routine, Intra-op lactated 2020-0 2020- No 1000mL at 20 Unive rs ringers IV 09-25 06-05 mL/hr, ity of infusion 14:45: 14:47 1,000 mL, [place] as 1,000 mL 00 :00 IV Medical Infusion, Branch ONCE, 1 dose, Sun09/26/19 at 0945, Routine, DSU Pre-op DICLOFENAC 2020-0 Yes [id number] TAKE ONE [facility] 75 mg EC 6-05 TABLET BY ity of tablet 00:00: MOUTH [place] 00 TWICE A Medical DAY WITH [place] FOOD DICLOFENAC 2020-0 Yes [id number] TAKE ONE [facility] 75 mg EC 6-05 TABLET BY ity of tablet 00:00: MOUTH [place] 00 TWICE A Medical DAY WITH [place] FOOD DICLOFENAC 2020-0 Yes [id number] TAKE ONE [facility] 75 mg EC 6-05 TABLET BY ity of tablet 00:00: MOUTH [place] 00 TWICE A Medical DAY WITH [place] FOOD DICLOFENAC 2020-0 Yes [id number] TAKE ONE [facility] 75 mg EC 6-05 TABLET BY ity of tablet 00:00: MOUTH [place] 00 TWICE A Medical DAY WITH [place] FOOD DICLOFENAC 2020-0 Yes [id number] TAKE ONE [facility] 75 mg EC 6-05 TABLET BY ity of tablet 00:00: MOUTH [place] 00 TWICE A Medical DAY WITH Branch FOOD DICLOFENAC 2020-0 Yes [id number] TAKE ONE [facility] 75 mg EC 6-05 TABLET BY ity of tablet 00:00: MOUTH [place] 00 TWICE A Medical DAY WITH Branch FOOD DICLOFENAC 2020-0 2020- No [id number] TAKE ONE [facility] 75 mg EC 6-05 07-06 TABLET BY ity o f tablet 00:00: 00:00 MOUTH [place] 00 :00 TWICE A Medical DAY WITH Branch FOOD losartan-hy 2020-0 Yes 1{tbl} Take 1 Tab [facility] drochloroth 6-04 by mouth ity of iazide 15:07: daily. [place] (HYZAAR) 16 Medical 100-25 mg Branch per tablet levothyroxi 2020-0 Yes 100ug Take 100 U nivers ne 6-04 mcg by ity of (SYNTHROID) 15:07: mouth [place] 75 mcg 16 every Medical tablet morning. Branch Liraglutide 2020-0 Yes inject Univ ers (VICTOZA 6-04 under the ity of 2-TALA) 0.6 15:07: skin. [place] mg/0.1 mL 16 Medical (18 mg/3 Branch mL) injection ERGOCALCIFE 2020-0 Yes Take by Uni vers ROL, 6-04 mouth. ity of VITAMIN D2, 15:07: [place] (VITAMIN D 16 Medical ORAL) Branch vitamin 2020-0 Yes 1000ug Take 1,000 Un shanae B-12 6-04 mcg by ity of (VITAMIN 15:07: mouth [place] B-12) 1,000 16 daily. Medica l mcg tablet Branch losartan-hy 2020-0 Yes 1{tbl} Take 1 Tab [facility] drochloroth 6-04 by mouth ity of iazide 15:07: daily. [place] (HYZAAR) 16 Medical 100-25 mg Branch per tablet levothyroxi 2020-0 Yes 100ug Take 100 U nivers ne 6-04 mcg by ity of (SYNTHROID) 15:07: mouth [place] 75 mcg 16 every Medical tablet morning. Branch Liraglutide 2020-0 Yes inject Univ ers (VICTOZA 6-04 under the ity of 2-TALA) 0.6 15:07: skin. [place] mg/0.1 mL 16 Medical (18 mg/3 Branch mL) injection ERGOCALCIFE 2020-0 Yes Take by Uni vers ROL, 6-04 mouth. ity of VITAMIN D2, 15:07: [place] (VITAMIN D 16 Medical ORAL) Branch vitamin 2020-0 Yes 1000ug Take 1,000 Un shanae B-12 6-04 mcg by ity of (VITAMIN 15:07: mouth [place] B-12) 1,000 16 daily. Medica l mcg tablet Branch losartan-hy 2020-0 Yes 1{tbl} Take 1 Tab [facility] drochloroth 6-04 by mouth ity of iazide 15:07: daily. [place] (HYZAAR) 16 Medical 100-25 mg Branch per tablet levothyroxi 2020-0 Yes 100ug Take 100 U nivers ne 6-04 mcg by ity of (SYNTHROID) 15:07: mouth [place] 75 mcg 16 every Medical tablet morning. Branch Liraglutide 2020-0 Yes inject Univ ers (VICTOZA 6-04 under the ity of 2-TALA) 0.6 15:07: skin. [place] mg/0.1 mL 16 Medical (18 mg/3 Branch mL) injection ERGOCALCIFE 2020-0 Yes Take by Uni vers ROL, 6-04 mouth. ity of VITAMIN D2, 15:07: [place] (VITAMIN D 16 Medical ORAL) Branch vitamin 2020-0 Yes 1000ug Take 1,000 Un shanae B-12 6-04 mcg by ity of (VITAMIN 15:07: mouth [place] B-12) 1,000 16 daily. Medica l mcg tablet Branch losartan-hy 2020-0 Yes 1{tbl} Take 1 Tab [facility] drochloroth 6-04 by mouth ity of iazide 15:07: daily. [place] (HYZAAR) 16 Medical 100-25 mg Branch per tablet levothyroxi 2020-0 Yes 100ug Take 100 U nivers ne 6-04 mcg by ity of (SYNTHROID) 15:07: mouth [place] 75 mcg 16 every Medical tablet morning. Branch Liraglutide 2020-0 Yes inject [facility] ers (VICTOZA 6-04 under the ity of 2-TALA) 0.6 15:07: skin. [place] mg/0.1 mL 16 Medical (18 mg/3 Branch mL) injection ERGOCALCIFE 2020-0 Yes Take by Uni vers ROL, 6-04 mouth. ity of VITAMIN D2, 15:07: [place] (VITAMIN D 16 Medical ORAL) Branch vitamin 2020-0 Yes 1000ug Take 1,000 Un shanae B-12 6-04 mcg by ity of (VITAMIN 15:07: mouth [place] B-12) 1,000 16 daily. Medica l mcg tablet Branch peg-electro 2020-0 Yes [id number] 4000mL Take 4,000 [facility] lyte soln 5-21 mL by ity of .74-6 00:00: mouth [place] .74 -5.86 00 SEE-INSTRU Medi chip gram CTIONS. Branch solution Take as directed clotrimazol 2020-0 Yes [id number] Apply to [facility] e 5-21 area(s) 2 ity of (CLOTRIMAZO 00:00: (two) [place] LE AF) 1 % 00 times Medical topical daily. Branch cream peg-electro 2020-0 Yes [id number] 4000mL Take 4,000 [facility] lyte soln 5-21 mL by ity of .74-6 00:00: mouth [place] .74 -5.86 00 SEE-INSTRU Medi chip gram CTIONS. Branch solution Take as directed triamcinolo 2020-0 Yes [id number] Apply to [facility] ne 5-21 area(s) 2 ity of acetonide 00:00: (two) [place] 0.1 % cream 00 times Medical daily. Branch clotrimazol 2020-0 Yes [id number] Apply to [facility] e 5-21 area(s) 2 ity of (CLOTRIMAZO 00:00: (two) [place] LE AF) 1 % 00 times Medical topical daily. Branch cream peg-electro 2020-0 Yes [id number] 4000mL Take 4,000 [facility] lyte soln 5-21 mL by ity of .74-6 00:00: mouth [place] .74 -5.86 00 SEE-INSTRU Medi chip gram CTIONS. Branch solution Take as directed triamcinolo 2020-0 Yes [id number] Apply to [facility] ne 5-21 area(s) 2 ity of acetonide 00:00: (two) [place] 0.1 % cream 00 times Medical daily. Branch clotrimazol 2020-0 Yes [id number] Apply to [facility] e 5-21 area(s) 2 ity of (CLOTRIMAZO 00:00: (two) [place] LE AF) 1 % 00 times Medical topical daily. Branch cream triamcinolo 2020-0 Yes [id number] Apply to [facility] ne 5-21 area(s) 2 ity of acetonide 00:00: (two) [place] 0.1 % cream 00 times Medical daily. Branch clotrimazol 2020-0 Yes [id number] Apply to [facility] e 5-21 area(s) 2 ity of (CLOTRIMAZO 00:00: (two) [place] LE AF) 1 % 00 times Medical topical daily. Branch cream peg-electro 2020-0 Yes [id number] 4000mL Take 4,000 [facility] lyte soln 5-21 mL by ity of 236-22.74-6 00:00: mouth [place] .74 -5.86 00 SEE-INSTRU Medi chip gram CTIONS. Branch solution Take as directed triamcinolo 2020-0 Yes [id number] Apply to [facility] ne 5-21 area(s) 2 ity of acetonide 00:00: (two) [place] 0.1 % cream 00 times Medical daily. Branch clotrimazol 2020-0 Yes [id number] Apply to [facility] e 5-21 area(s) 2 ity of (CLOTRIMAZO 00:00: (two) [place] LE AF) 1 % 00 times Medical topical daily. Branch cream peg-electro 2020-0 Yes [id number] 4000mL Take 4,000 [facility] lyte soln 5-21 mL by ity of 236-.74-6 00:00: mouth [place] .74 -5.86 00 SEE-INSTRU Medi chip gram CTIONS. Branch solution Take as directed triamcinolo 2020-0 Yes [id number] Apply to [facility] ne 5-21 area(s) 2 ity of acetonide 00:00: (two) [place] 0.1 % cream 00 times Medical daily. Branch clotrimazol 2020-0 Yes [id number] Apply to [facility] e 5-21 area(s) 2 ity of (CLOTRIMAZO 00:00: (two) [place] LE AF) 1 % 00 times Medical topical daily. Branch cream peg-electro 2020-0 Yes [id number] 4000mL Take 4,000 [facility] lyte soln 5-21 mL by ity of 236-22.74-6 00:00: mouth [place] .74 -5.86 00 SEE-INSTRU Medi chip gram CTIONS. Branch solution Take as directed triamcinolo 2020-0 Yes [id number] Apply to [facility] ne 5-21 area(s) 2 ity of acetonide 00:00: (two) [place] 0.1 % cream 00 times Medical daily. Branch clotrimazol 2020-0 Yes [id number] Apply to [facility] e 5-21 area(s) 2 ity of (CLOTRIMAZO 00:00: (two) [place] LE AF) 1 % 00 times Medical topical daily. Branch cream peg-electro 2020-0 Yes [id number] 4000mL Take 4,000 [facility] lyte soln 5-21 mL by ity of 236-22.74-6 00:00: mouth [place] .74 -5.86 00 SEE-INSTRU Medi chip gram CTIONS. Branch solution Take as directed triamcinolo 2020-0 Yes [id number] Apply to [facility] ne 5-21 area(s) 2 ity of acetonide 00:00: (two) [place] 0.1 % cream 00 times Medical daily. Branch clotrimazol 2020-0 Yes [id number] Apply to [facility] e 5-21 area(s) 2 ity of (CLOTRIMAZO 00:00: (two) [place] LE AF) 1 % 00 times Medical topical daily. Branch cream peg-electro 2020-0 Yes [id number] 4000mL Take 4,000 [facility] lyte soln 5-21 mL by ity of 236-.74-6 00:00: mouth [place] .74 -5.86 00 SEE-INSTRU Medi chip gram CTIONS. Branch solution Take as directed triamcinolo 2020-0 Yes [id number] Apply to [facility] ne 5-21 area(s) 2 ity of acetonide 00:00: (two) [place] 0.1 % cream 00 times Medical daily. Branch clotrimazol 2020-0 Yes [id number] Apply to [facility] e 5-21 area(s) 2 ity of (CLOTRIMAZO 00:00: (two) [place] LE AF) 1 % 00 times Medical topical daily. Branch cream peg-electro 2020-0 Yes [id number] 4000mL Take 4,000 [facility] lyte soln 5-21 mL by ity of 236-22.74-6 00:00: mouth [place] .74 -5.86 00 SEE-INSTRU Medi chip gram CTIONS. Branch solution Take as directed triamcinolo 2020-0 Yes [id number] Apply to [facility] ne 5-21 area(s) 2 ity of acetonide 00:00: (two) [place] 0.1 % cream 00 times Medical daily. Branch clotrimazol 2020-0 Yes [id number] Apply to [facility] e 5-21 area(s) 2 ity of (CLOTRIMAZO 00:00: (two) [place] LE AF) 1 % 00 times Medical topical daily. Branch cream peg-electro 2020-0 Yes [id number] 4000mL Take 4,000 [facility] lyte soln 5-21 mL by ity of 236-22.74-6 00:00: mouth [place] .74 -5.86 00 SEE-INSTRU Medi chip gram CTIONS. Branch solution Take as directed triamcinolo 2020-0 Yes [id number] Apply to [facility] ne 5-21 area(s) 2 ity of acetonide 00:00: (two) [place] 0.1 % cream 00 times Medical daily. Branch clotrimazol 2020-0 Yes [id number] Apply to [facility] e 5-21 area(s) 2 ity of (CLOTRIMAZO 00:00: (two) [place] LE AF) 1 % 00 times Medical topical daily. Branch cream peg-electro 2020-0 Yes [id number] 4000mL Take 4,000 [facility] lyte soln 5-21 mL by ity of 236-.74-6 00:00: mouth [place] .74 -5.86 00 SEE-INSTRU Medi chip gram CTIONS. Branch solution Take as directed triamcinolo 2020-0 Yes [id number] Apply to [facility] ne 5-21 area(s) 2 ity of acetonide 00:00: (two) [place] 0.1 % cream 00 times Medical daily. Branch clotrimazol 2020-0 Yes [id number] Apply to [facility] e 5-21 area(s) 2 ity of (CLOTRIMAZO 00:00: (two) [place] LE AF) 1 % 00 times Medical topical daily. Branch cream peg-electro 2020-0 Yes [id number] 4000mL Take 4,000 [facility] lyte soln 5-21 mL by ity of 236-22.74-6 00:00: mouth [place] .74 -5.86 00 SEE-INSTRU Medi chip gram CTIONS. Branch solution Take as directed triamcinolo 2020-0 Yes [id number] Apply to [facility] ne 5-21 area(s) 2 ity of acetonide 00:00: (two) [place] 0.1 % cream 00 times Medical daily. Branch clotrimazol 2020-0 Yes [id number] Apply to [facility] e 5-21 area(s) 2 ity of (CLOTRIMAZO 00:00: (two) [place] LE AF) 1 % 00 times Medical topical daily. Branch cream peg-electro 2020-0 Yes [id number] 4000mL Take 4,000 [facility] lyte soln 5-21 mL by ity of 236-22.74-6 00:00: mouth [place] .74 -5.86 00 SEE-INSTRU Medi chip gram CTIONS. Branch solution Take as directed triamcinolo 2020-0 Yes [id number] Apply to [facility] ne 5-21 area(s) 2 ity of acetonide 00:00: (two) [place] 0.1 % cream 00 times Medical daily. Branch clotrimazol 2020-0 Yes [id number] Apply to [facility] e 5-21 area(s) 2 ity of (CLOTRIMAZO 00:00: (two) [place] LE AF) 1 % 00 times Medical topical daily. Branch cream peg-electro 2020-0 Yes [id number] 4000mL Take 4,000 [facility] lyte soln 5-21 mL by ity of 236-.74-6 00:00: mouth [place] .74 -5.86 00 SEE-INSTRU Medi chip gram CTIONS. Branch solution Take as directed triamcinolo 2020-0 Yes [id number] Apply to [facility] ne 5-21 area(s) 2 ity of acetonide 00:00: (two) [place] 0.1 % cream 00 times Medical daily. Branch clotrimazol 2020-0 Yes [id number] Apply to [facility] e 5-21 area(s) 2 ity of (CLOTRIMAZO 00:00: (two) [place] LE AF) 1 % 00 times Medical topical daily. Branch cream peg-electro 2020-0 Yes [id number] 4000mL Take 4,000 [facility] lyte soln 5-21 mL by ity of 236-22.74-6 00:00: mouth [place] .74 -5.86 00 SEE-INSTRU Medi chip gram CTIONS. Branch solution Take as directed clotrimazol 2020-0 Yes [id number] Apply to [facility] e 5-21 area(s) 2 ity of (CLOTRIMAZO 00:00: (two) [place] LE AF) 1 % 00 times Medical topical daily. Branch cream peg-electro 2020-0 Yes [id number] 4000mL Take 4,000 [facility] lyte soln 5-21 mL by ity of 236-.74-6 00:00: mouth [place] .74 -5.86 00 SEE-INSTRU Medi chip gram CTIONS. Branch solution Take as directed clotrimazol 2020-0 Yes [id number] Apply to [facility] e 5-21 area(s) 2 ity of (CLOTRIMAZO 00:00: (two) [place] LE AF) 1 % 00 times Medical topical daily. Branch cream peg-electro 2020-0 Yes [id number] 4000mL Take 4,000 [facility] lyte soln 5-21 mL by ity of 236-.74-6 00:00: mouth [place] .74 -5.86 00 SEE-INSTRU Medi chip gram CTIONS. Branch solution Take as directed clotrimazol 2020-0 Yes [id number] Apply to [facility] e 5-21 area(s) 2 ity of (CLOTRIMAZO 00:00: (two) [place] LE AF) 1 % 00 times Medical topical daily. Branch cream peg-electro 2020-0 Yes [id number] 4000mL Take 4,000 [facility] lyte soln 5-21 mL by ity of 236-.74-6 00:00: mouth [place] .74 -5.86 00 SEE-INSTRU Medi chip gram CTIONS. Branch solution Take as directed clotrimazol 2020-0 Yes [id number] Apply to [facility] e 5-21 area(s) 2 ity of (CLOTRIMAZO 00:00: (two) [place] LE AF) 1 % 00 times Medical topical daily. Branch cream peg-electro 2020-0 Yes [id number] 4000mL Take 4,000 [facility] lyte soln 5-21 mL by ity of 236-.74-6 00:00: mouth [place] .74 -5.86 00 SEE-INSTRU Medi chip gram CTIONS. Branch solution Take as directed clotrimazol 2020-0 Yes [id number] Apply to [facility] e 5-21 area(s) 2 ity of (CLOTRIMAZO 00:00: (two) [place] LE AF) 1 % 00 times Medical topical daily. Branch cream peg-electro 2020-0 Yes [id number] 4000mL Take 4,000 [facility] lyte soln 5-21 mL by ity of 236-.74-6 00:00: mouth [place] .74 -5.86 00 SEE-INSTRU Medi chip gram CTIONS. Branch solution Take as directed clotrimazol 2020-0 Yes [id number] Apply to [facility] e 5-21 area(s) 2 ity of (CLOTRIMAZO 00:00: (two) [place] LE AF) 1 % 00 times Medical topical daily. Branch cream peg-electro 2020-0 Yes [id number] 4000mL Take 4,000 [facility] lyte soln 5-21 mL by ity of 236.74-6 00:00: mouth [place] .74 -5.86 00 SEE-INSTRU Medi chip gram CTIONS. Branch solution Take as directed clotrimazol 2020-0 Yes [id number] Apply to [facility] e 5-21 area(s) 2 ity of (CLOTRIMAZO 00:00: (two) [place] LE AF) 1 % 00 times Medical topical daily. Branch cream peg-electro 2020-0 Yes [id number] 4000mL Take 4,000 [facility] lyte soln 5-21 mL by ity of 236-.74-6 00:00: mouth [place] .74 -5.86 00 SEE-INSTRU Medi chip gram CTIONS. Branch solution Take as directed clotrimazol 2020-0 Yes [id number] Apply to [facility] e 5-21 area(s) 2 ity of (CLOTRIMAZO 00:00: (two) [place] LE AF) 1 % 00 times Medical topical daily. Branch cream peg-electro 2020-0 Yes [id number] 4000mL Take 4,000 [facility] lyte soln 5-21 mL by ity of 236.74-6 00:00: mouth [place] .74 -5.86 00 SEE-INSTRU Medi chip gram CTIONS. Branch solution Take as directed clotrimazol 2020-0 Yes [id number] Apply to [facility] e 5-21 area(s) 2 ity of (CLOTRIMAZO 00:00: (two) [place] LE AF) 1 % 00 times Medical topical daily. Branch cream peg-electro 2020-0 Yes [id number] 4000mL Take 4,000 [facility] lyte soln 5-21 mL by ity of 236-22.74-6 00:00: mouth [place] .74 -5.86 00 SEE-INSTRU Medi chip gram CTIONS. Branch solution Take as directed clotrimazol 2020-0 Yes [id number] Apply to [facility] e 5-21 area(s) 2 ity of (CLOTRIMAZO 00:00: (two) [place] LE AF) 1 % 00 times Medical topical daily. Branch cream peg-electro 2020-0 Yes [id number] 4000mL Take 4,000 [facility] lyte soln 5-21 mL by ity of 236-22.74-6 00:00: mouth [place] .74 -5.86 00 SEE-INSTRU Medi chip gram CTIONS. Branch solution Take as directed clotrimazol 2020-0 Yes [id number] Apply to [facility] e 5-21 area(s) 2 ity of (CLOTRIMAZO 00:00: (two) [place] LE AF) 1 % 00 times Medical topical daily. Branch cream peg-electro 2020-0 Yes [id number] 4000mL Take 4,000 [facility] lyte soln 5-21 mL by ity of 236-22.74-6 00:00: mouth [place] .74 -5.86 00 SEE-INSTRU Medi chip gram CTIONS. Branch solution Take as directed clotrimazol 2020-0 Yes [id number] Apply to [facility] e 5-21 area(s) 2 ity of (CLOTRIMAZO 00:00: (two) [place] LE AF) 1 % 00 times Medical topical daily. Branch cream peg-electro 2020-0 Yes [id number] 4000mL Take 4,000 [facility] lyte soln 5-21 mL by ity of 236-22.74-6 00:00: mouth [place] .74 -5.86 00 SEE-INSTRU Medi chip gram CTIONS. Branch solution Take as directed clotrimazol 2020-0 Yes [id number] Apply to [facility] e 5-21 area(s) 2 ity of (CLOTRIMAZO 00:00: (two) [place] LE AF) 1 % 00 times Medical topical daily. Branch cream peg-electro 2020-0 Yes [id number] 4000mL Take 4,000 [facility] lyte soln 5-21 mL by ity of 236-22.74-6 00:00: mouth [place] .74 -5.86 00 SEE-INSTRU Medi chip gram CTIONS. Branch solution Take as directed clotrimazol 2020-0 Yes [id number] Apply to [facility] e 5-21 area(s) 2 ity of (CLOTRIMAZO 00:00: (two) [place] LE AF) 1 % 00 times Medical topical daily. Branch cream peg-electro 2020-0 Yes [id number] 4000mL Take 4,000 [facility] lyte soln 5-21 mL by ity of 236-.74-6 00:00: mouth [place] .74 -5.86 00 SEE-INSTRU Medi chip gram CTIONS. Branch solution Take as directed clotrimazol 2020-0 Yes [id number] Apply to [facility] e 5-21 area(s) 2 ity of (CLOTRIMAZO 00:00: (two) [place] LE AF) 1 % 00 times Medical topical daily. Branch cream peg-electro 2020-0 Yes [id number] 4000mL Take 4,000 [facility] lyte soln 5-21 mL by ity of 236.74-6 00:00: mouth [place] .74 -5.86 00 SEE-INSTRU Medi chip gram CTIONS. Branch solution Take as directed clotrimazol 2020-0 Yes [id number] Apply to [facility] e 5-21 area(s) 2 ity of (CLOTRIMAZO 00:00: (two) [place] LE AF) 1 % 00 times Medical topical daily. Branch cream triamcinolo 2020-0 2020- No [id number] Apply to [facility] ne 5-21 07-16 area(s) 2 ity of acetonide 00:00: 00:00 (two) [place] 0.1 % cream 00 :00 times Medical daily. Branch DICLOFENAC 2020-0 Yes [id number] TAKE ONE [facility] 75 mg EC 4-28 TABLET BY ity of tablet 00:00: MOUTH [place] 00 TWICE A Medical DAY WITH Branch FOOD DICLOFENAC 2020-0 Yes [id number] TAKE ONE [facility] 75 mg EC 4-28 TABLET BY ity of tablet 00:00: MOUTH [place] 00 TWICE A Medical DAY WITH Branch FOOD DICLOFENAC 2020-0 Yes [id number] TAKE ONE [facility] 75 mg EC 4-28 TABLET BY ity of tablet 00:00: MOUTH [place] 00 TWICE A Medical DAY WITH Branch FOOD DICLOFENAC 2020-0 Yes [id number] TAKE ONE [facility] 75 mg EC 4-28 TABLET BY ity of tablet 00:00: MOUTH [place] 00 TWICE A Medical DAY WITH Branch FOOD DICLOFENAC 2020-0 Yes [id number] TAKE ONE [facility] 75 mg EC 4-28 TABLET BY ity of tablet 00:00: MOUTH [place] 00 TWICE A Medical DAY WITH Branch FOOD DICLOFENAC 2020-0 Yes [id number] TAKE ONE [facility] 75 mg EC 4-28 TABLET BY ity of tablet 00:00: MOUTH [place] 00 TWICE A Medical DAY WITH Branch FOOD DICLOFENAC 2020-0 Yes [id number] TAKE ONE [facility] 75 mg EC 4-28 TABLET BY ity of tablet 00:00: MOUTH [place] 00 TWICE A Medical DAY WITH Branch FOOD DICLOFENAC 2020-0 Yes [id number] TAKE ONE [facility] 75 mg EC 4-28 TABLET BY ity of tablet 00:00: MOUTH [place] 00 TWICE A Medical DAY WITH Branch FOOD DICLOFENAC 2020-0 Yes [id number] TAKE ONE [facility] 75 mg EC 4-28 TABLET BY ity of tablet 00:00: MOUTH [place] 00 TWICE A Medical DAY WITH Branch FOOD DICLOFENAC 2020-0 Yes [id number] TAKE ONE [facility] 75 mg EC 4-28 TABLET BY ity of tablet 00:00: MOUTH [place] 00 TWICE A Medical DAY WITH Branch FOOD DICLOFENAC 2020-0 2020- No [id number] TAKE ONE [facility] 75 mg EC 4-28 06-05 TABLET BY ity o f tablet 00:00: 00:00 MOUTH [place] 00 :00 TWICE A Medical DAY WITH Branch FOOD DICLOFENAC 2020-0 2020- No [id number] TAKE ONE [facility] 75 mg EC 4-28 06-05 TABLET BY ity o f tablet 00:00: 00:00 MOUTH [place] 00 :00 TWICE A Medical DAY WITH Branch FOOD DICLOFENAC 2020-0 Yes [id number] TAKE ONE [facility] 75 mg EC 3-16 TABLET BY ity of tablet 00:00: MOUTH [place] 00 TWICE A Medical DAY WITH Branch FOOD DICLOFENAC 2020-0 Yes [id number] TAKE ONE [facility] 75 mg EC 3-16 TABLET BY ity of tablet 00:00: MOUTH [place] 00 TWICE A Medical DAY WITH Branch FOOD DICLOFENAC 2020-0 2020- No [id number] TAKE ONE [facility] 75 mg EC 3-16 04-28 TABLET BY ity o f tablet 00:00: 00:00 MOUTH [place] 00 :00 TWICE A Medical DAY WITH Branch FOOD DICLOFENAC 2020-0 Yes [id number] TAKE ONE [facility] 75 mg EC 2-13 TABLET BY ity of tablet 00:00: MOUTH [place] 00 TWICE A Medical DAY WITH Branch FOOD DICLOFENAC 2020-0 Yes [id number] TAKE ONE [facility] 75 mg EC 2-13 TABLET BY ity of tablet 00:00: MOUTH [place] 00 TWICE A Medical DAY WITH Branch FOOD DICLOFENAC 2020-0 2020- No [id number] TAKE ONE [facility] 75 mg EC 2-13 03-16 TABLET BY ity o f tablet 00:00: 00:00 MOUTH [place] 00 :00 TWICE A Medical DAY WITH Branch FOOD mupirocin 2 2020-0 Yes [id number] Apply to [facility] % ointment 2-04 area(s) 3 ity of 00:00: (three) [place] 00 times Medical daily. Branch mupirocin 2 2020-0 Yes [id number] Apply to [facility] % ointment 2-04 area(s) 3 ity of 00:00: (three) [place] 00 times Medical daily. Branch mupirocin 2 2020-0 Yes [id number] Apply to [facility] % ointment 2-04 area(s) 3 ity of 00:00: (three) [place] 00 times Medical daily. Branch mupirocin 2 2020-0 Yes [id number] Apply to [facility] % ointment 2-04 area(s) 3 ity of 00:00: (three) [place] 00 times Medical daily. Branch mupirocin 2 2020-0 Yes [id number] Apply to [facility] % ointment 2-04 area(s) 3 ity of 00:00: (three) [place] 00 times Medical daily. Branch mupirocin 2 2020-0 Yes [id number] Apply to [facility] % ointment 2-04 area(s) 3 ity of 00:00: (three) [place] 00 times Medical daily. Branch mupirocin 2 2020-0 Yes [id number] Apply to [facility] % ointment 2-04 area(s) 3 ity of 00:00: (three) [place] 00 times Medical daily. Branch mupirocin 2 2020-0 Yes [id number] Apply to [facility] % ointment 2-04 area(s) 3 ity of 00:00: (three) [place] 00 times Medical daily. Branch mupirocin 2 2020-0 Yes [id number] Apply to [facility] % ointment 2-04 area(s) 3 ity of 00:00: (three) [place] 00 times Medical daily. Branch mupirocin 2 2020-0 Yes [id number] Apply to [facility] % ointment 2-04 area(s) 3 ity of 00:00: (three) [place] 00 times Medical daily. Branch mupirocin 2 2020-0 Yes [id number] Apply to [facility] % ointment 2-04 area(s) 3 ity of 00:00: (three) [place] 00 times Medical daily. Branch mupirocin 2 2020-0 Yes [id number] Apply to [facility] % ointment 2-04 area(s) 3 ity of 00:00: (three) [place] 00 times Medical daily. Branch mupirocin 2 2020-0 Yes [id number] Apply to [facility] % ointment 2-04 area(s) 3 ity of 00:00: (three) [place] 00 times Medical daily. Branch mupirocin 2 2020-0 Yes [id number] Apply to [facility] % ointment 2-04 area(s) 3 ity of 00:00: (three) [place] 00 times Medical daily. Branch mupirocin 2 2020-0 Yes [id number] Apply to [facility] % ointment 2-04 area(s) 3 ity of 00:00: (three) [place] 00 times Medical daily. Branch mupirocin 2 2020-0 Yes [id number] Apply to [facility] % ointment 2-04 area(s) 3 ity of 00:00: (three) [place] 00 times Medical daily. Branch mupirocin 2 2020-0 Yes [id number] Apply to [facility] % ointment 2-04 area(s) 3 ity of 00:00: (three) [place] 00 times Medical daily. Branch mupirocin 2 2020-0 Yes [id number] Apply to [facility] % ointment 2-04 area(s) 3 ity of 00:00: (three) [place] 00 times Medical daily. Branch mupirocin 2 2020-0 Yes [id number] Apply to [facility] % ointment 2-04 area(s) 3 ity of 00:00: (three) [place] 00 times Medical daily. Branch mupirocin 2 2020-0 Yes [id number] Apply to [facility] % ointment 2-04 area(s) 3 ity of 00:00: (three) [place] 00 times Medical daily. Branch mupirocin 2 2020-0 Yes [id number] Apply to [facility] % ointment 2-04 area(s) 3 ity of 00:00: (three) [place] 00 times Medical daily. Branch mupirocin 2 2020-0 Yes [id number] Apply to [facility] % ointment 2-04 area(s) 3 ity of 00:00: (three) [place] 00 times Medical daily. Branch mupirocin 2 2020-0 Yes [id number] Apply to [facility] % ointment 2-04 area(s) 3 ity of 00:00: (three) [place] 00 times Medical daily. Branch mupirocin 2 2020-0 Yes [id number] Apply to [facility] % ointment 2-04 area(s) 3 ity of 00:00: (three) [place] 00 times Medical daily. Branch mupirocin 2 2020-0 Yes [id number] Apply to [facility] % ointment 2-04 area(s) 3 ity of 00:00: (three) [place] 00 times Medical daily. Branch mupirocin 2 2020-0 Yes [id number] Apply to [facility] % ointment 2-04 area(s) 3 ity of 00:00: (three) [place] 00 times Medical daily. Branch mupirocin 2 2020-0 Yes [id number] Apply to [facility] % ointment 2-04 area(s) 3 ity of 00:00: (three) [place] 00 times Medical daily. Branch mupirocin 2 2020-0 Yes [id number] Apply to [facility] % ointment 2-04 area(s) 3 ity of 00:00: (three) [place] 00 times Medical daily. Branch mupirocin 2 2020-0 Yes [id number] Apply to [facility] % ointment 2-04 area(s) 3 ity of 00:00: (three) [place] 00 times Medical daily. Branch mupirocin 2 2020-0 Yes [id number] Apply to [facility] % ointment 2-04 area(s) 3 ity of 00:00: (three) [place] 00 times Medical daily. Branch mupirocin 2 2020-0 Yes [id number] Apply to [facility] % ointment 2-04 area(s) 3 ity of 00:00: (three) [place] 00 times Medical daily. Branch mupirocin 2 2020-0 Yes [id number] Apply to [facility] % ointment 2-04 area(s) 3 ity of 00:00: (three) [place] 00 times Medical daily. Branch mupirocin 2 2020-0 Yes [id number] Apply to [facility] % ointment 2-04 area(s) 3 ity of 00:00: (three) [place] 00 times Medical daily. Branch mupirocin 2 2020-0 Yes [id number] Apply to [facility] % ointment 2-04 area(s) 3 ity of 00:00: (three) [place] 00 times Medical daily. Branch mupirocin 2 2020-0 Yes [id number] Apply to [facility] % ointment 2-04 area(s) 3 ity of 00:00: (three) [place] 00 times Medical daily. Branch mupirocin 2 2020-0 Yes [id number] Apply to [facility] % ointment 2-04 area(s) 3 ity of 00:00: (three) [place] 00 times Medical daily. Branch mupirocin 2 2020-0 Yes [id number] Apply to [facility] % ointment 2-04 area(s) 3 ity of 00:00: (three) [place] 00 times Medical daily. Branch mupirocin 2 2020-0 Yes [id number] Apply to [facility] % ointment 2-04 area(s) 3 ity of 00:00: (three) [place] 00 times Medical daily. Branch mupirocin 2 2020-0 Yes [id number] Apply to [facility] % ointment 2-04 area(s) 3 ity of 00:00: (three) [place] 00 times Medical daily. Branch mupirocin 2 2020-0 Yes [id number] Apply to [facility] % ointment 2-04 area(s) 3 ity of 00:00: (three) [place] 00 times Medical daily. Branch mupirocin 2 2020-0 Yes [id number] Apply to [facility] % ointment 2-04 area(s) 3 ity of 00:00: (three) [place] 00 times Medical daily. Branch clindamycin 2020-0 Yes [id number] 150mg Take 1 [facility] 150 mg 1-17 capsule by ity of capsule 00:00: mouth 3 [place] 00 (three) Medical times Branch daily. clindamycin 2020-0 Yes [id number] 150mg Take 1 [facility] 150 mg 1-17 capsule by ity of capsule 00:00: mouth [place] (three) Medical times Branch daily. clindamycin 2020-0 Yes [id number] 150mg Take 1 [facility] 150 mg 1-17 capsule by ity of capsule 00:00: mouth [place] (three) Medical times Branch daily. clindamycin 2020-0 Yes [id number] 150mg Take 1 [facility] 150 mg 1-17 capsule by ity of capsule 00:00: mouth [place] (three) Medical times Branch daily. clindamycin 2020-0 Yes [id number] 150mg Take 1 [facility] 150 mg 1-17 capsule by ity of capsule 00:00: mouth [place] (three) Medical times Branch daily. clindamycin 2020-0 Yes [id number] 150mg Take 1 [facility] 150 mg 1-17 capsule by ity of capsule 00:00: mouth [place] (three) Medical times Branch daily. clindamycin 2020-0 Yes [id number] 150mg Take 1 [facility] 150 mg 1-17 capsule by ity of capsule 00:00: mouth [place] [facility] Medical times Branch daily. clindamycin 2020-0 Yes [id number] 150mg Take 1 [facility] 150 mg 1-17 capsule by ity of capsule 00:00: mouth [place] (three) Medical times Branch daily. clindamycin 2020-0 Yes [id number] 150mg Take 1 [facility] 150 mg 1-17 capsule by ity of capsule 00:00: mouth [place] (three) Medical times [facility] daily. clindamycin 2020-0 Yes [id number] 150mg Take 1 [facility] 150 mg 1-17 capsule by [facility] capsule 00:00: mouth [address] [place] [address] (three) Medical times Branch daily. clindamycin 2020-0 Yes [id number] 150mg Take 1 [facility] 150 mg 1-17 capsule by [facility] capsule 00:00: mouth [address] [place] [address] (three) Medical times [facility] daily. clindamycin 2020-0 Yes [id number] 150mg Take 1 [facility] 150 mg 1-17 capsule by [facility] capsule 00:00: mouth [address] [place] [address] (three) Medical times [facility] daily. clindamycin 2020-0 Yes [id number] 150mg Take 1 [facility] 150 mg 1-17 capsule by [facility] capsule 00:00: mouth [address] [place] [address] (three) Medical times [facility] daily. clindamycin 2020-0 Yes [id number] 150mg Take 1 [facility] 150 mg 1-17 capsule by [facility] capsule 00:00: mouth [address] [place] [address] (three) Medical times [facility] daily. clindamycin 2020-0 Yes [id number] 150mg Take 1 [facility] 150 mg 1-17 capsule by [facility] capsule 00:00: mouth [place] (three) Medical times [facility] daily. clindamycin 2020-0 Yes [id number] 150mg Take 1 [facility] 150 mg 1-17 capsule by [facility] capsule 00:00: mouth [address] [place] [address] (three) Medical times [facility] daily. clindamycin 2020-0 Yes [id number] 150mg Take 1 [facility] 150 mg 1-17 capsule by [facility] capsule 00:00: mouth [address] [place] [address] ([facility]) Medical times [facility] daily. clindamycin 2020-0 Yes [id number] 150mg Take 1 [facility] 150 mg 1-17 capsule by [facility] capsule 00:00: mouth [address] [place] [address] ([facility]) Medical times [facility] daily. clindamycin 2020-0 Yes [id number] 150mg Take 1 [facility] 150 mg 1-17 capsule by [facility] capsule 00:00: mouth [address] [place] [address] ([facility]) Medical times [facility] daily. clindamycin 2020-0 Yes [id number] 150mg Take 1 [facility] 150 mg 1-17 capsule by [facility] capsule 00:00: mouth [address] [place] [address] ([facility]) Medical times [facility] daily. clindamycin 2020-0 Yes [id number] 150mg Take 1 [facility] 150 mg 1-17 capsule by [facility] of capsule 00:00: [address] ([facility]) Medical times Branch daily. clindamycin 2020-0 Yes [id number] 150mg Take 1 [facility] 150 mg 1-17 capsule by [facility] of capsule 00:00: mouth [address] [place] [address] ([facility]) Medical times [facility] daily. clindamycin 2020-0 Yes [id number] 150mg Take 1 [facility] 150 mg 1-17 capsule by [facility] of capsule 00:00: mouth [address] [place] [address] ([facility]) Medical times [facility] daily. clindamycin 2020-0 Yes [id number] 150mg Take 1 [facility] 150 mg 1-17 capsule by [facility] capsule 00:00: mouth [address] [place] [address] ([facility]) Medical times [facility] daily. clindamycin 2020-0 Yes [id number] 150mg Take 1 [facility] 150 mg 1-17 capsule by [facility] of capsule 00:00: mouth [address] [place] [address] (three) Medical times [facility] daily. clindamycin 2020-0 Yes [id number] 150mg Take 1 [facility] 150 mg 1-17 capsule by [facility] capsule 00:00: mouth [place] (three) Medical times Branch daily. clindamycin 2020-0 Yes [id number] 150mg Take 1 [facility] 150 mg 1-17 capsule by [facility] of capsule 00:00: mouth [place] (three) Medical times [facility] daily. clindamycin 2020-0 Yes [id number] 150mg Take 1 [facility] 150 mg 1-17 capsule by [facility] of capsule 00:00: mouth [place] (three) Medical times [facility] daily. clindamycin 2020-0 Yes [id number] 150mg Take 1 [facility] 150 mg 1-17 capsule by [facility] of capsule 00:00: mouth [address] [place] [address] ([facility]) Medical times [facility] daily. clindamycin 2020-0 Yes [id number] 150mg Take 1 [facility] 150 mg 1-17 capsule by [facility] of capsule 00:00: mouth [address] [place] [address] ([facility]) Medical times [facility] daily. clindamycin 2020-0 Yes [id number] 150mg Take 1 [facility] 150 mg 1-17 capsule by [facility] capsule 00:00: mouth [address] [place] [address] ([facility]) Medical times [facility] daily. clindamycin 2020-0 Yes [id number] 150mg Take 1 [facility] 150 mg 1-17 capsule by [facility] of capsule 00:00: mouth [address] [place] [address] ([facility]) Medical times [facility] daily. clindamycin 2020-0 Yes [id number] 150mg Take 1 [facility] 150 mg 1-17 capsule by [facility] of capsule 00:00: mouth [address] [place] [address] ([facility]) Medical times [facility] daily. clindamycin 2020-0 Yes [id number] 150mg Take 1 [facility] 150 mg 1-17 capsule by [facility] of capsule 00:00: mouth [address] [place] [address] ([facility]) Medical times [facility] daily. clindamycin 2020-0 Yes [id number] 150mg Take 1 [facility] 150 mg 1-17 capsule by [facility] of capsule 00:00: mouth [address] [place] [address] ([facility]) Medical times [facility] daily. clindamycin 2020-0 Yes [id number] 150mg Take 1 [facility] 150 mg 1-17 capsule by [facility] of capsule 00:00: mouth [address] [place] [address] (three) Medical times Branch daily. clindamycin 2020-0 Yes [id number] 150mg Take 1 [facility] 150 mg 1-17 capsule by [facility] of capsule 00:00: mouth 3 (three) Medical times Branch daily. clindamycin 2020-0 Yes [id number] 150mg Take 1 [facility] 150 mg 1-17 capsule by [facility] of capsule 00:00: mouth 3 (three) Medical times [facility] daily. clindamycin 2020-0 Yes [id number] 150mg Take 1 [facility] 150 mg 1-17 capsule by [facility] of capsule 00:00: mouth (three) Medical times Branch daily. clindamycin 2020-0 Yes [id number] 150mg Take 1 [facility] 150 mg 1-17 capsule by [facility] of capsule 00:00: mouth (three) Medical times [facility] daily. clindamycin 2020-0 Yes [id number] 150mg Take 1 [facility] 150 mg 1-17 capsule by [facility] of capsule 00:00: mouth (three) Medical times Branch daily. clindamycin 2020-0 Yes [id number] 150mg Take 1 [facility] 150 mg 1-17 capsule by [facility] of capsule 00:00: mouth (three) Medical times [facility] daily. clindamycin 2020-0 Yes [id number] 150mg Take 1 [facility] 150 mg 1-17 capsule by [facility] of capsule 00:00: mouth (three) Medical times Branch daily. DICLOFENAC 2020-0 Yes [id number] TAKE ONE [facility] 75 mg EC 1-15 TABLET BY ity of tablet 00:00: MOUTH 00 TWICE A Medical DAY WITH Branch FOOD DICLOFENAC 2020-0 Yes [id number] TAKE ONE [facility] 75 mg EC 1-15 TABLET BY ity of tablet 00:00: MOUTH 00 TWICE A Medical DAY WITH Branch FOOD DICLOFENAC 2020-0 Yes [id number] TAKE ONE [facility] 75 mg EC 1-15 TABLET BY ity of tablet 00:00: MOUTH 00 TWICE A Medical DAY WITH Branch FOOD DICLOFENAC 2020-0 Yes [id number] TAKE ONE [facility] 75 mg EC 1-15 TABLET BY it[facility] of tablet 00:00: MOUTH 00 TWICE A Medical DAY WITH Branch FOOD DICLOFENAC 2020-0 Yes [id number] TAKE ONE [facility] 75 mg EC 1-15 TABLET BY it[facility] of tablet 00:00: MOUTH 00 TWICE A Medical DAY WITH Branch FOOD DICLOFENAC 2020-0 2020- No [id number] TAKE ONE [facility] 75 mg EC 1-15 02-13 TABLET BY ity o f tablet 00:00: 00:00 MOUTH [place] 00 :00 TWICE A Medical DAY WITH Branch FOOD clindamycin 2020-0 Yes [id number] 150mg Take 1 [facility] 150 mg 1-06 capsule by [facility] of capsule 00:00: mouth 4 [place] 00 (four) Medical times [place] daily. clindamycin 2019- 2020- No [id number] 150mg Take 1 [facility] 150 mg -06 -17 capsule by [facility] of capsule 00:00: 00:00 mouth 4 [place] 00 :00 (four) Medical times [place] daily. clindamycin 2019- 2020- No [id number] 150mg Take 1 [facility] 150 mg -06 -17 capsule by [facility] of capsule 00:00: 00:00 mouth 4 [place] 00 :00 (four) Medical times [place] daily. DICLOFENAC 2018- 2020- No [id number] TAKE ONE [facility] 75 mg EC 2-16 15 TABLET BY ity o f tablet 00:00: 00:00 MOUTH [place] 00 :00 TWICE A Medical DAY WITH Branch FOOD DICLOFENAC 2019-0 Yes [id number] TAKE ONE [facility] 75 mg EC 2-04 TABLET BY ity of tablet 00:00: MOUTH [place] 00 TWICE A Medical DAY WITH Branch FOOD DICLOFENAC 2019-0 Yes [id number] TAKE ONE [facility] 75 mg EC 2-04 TABLET BY it[facility] of tablet 00:00: MOUTH [place] 00 TWICE A Medical DAY WITH Branch FOOD DICLOFENAC 2019-0 Yes [id number] TAKE ONE [facility] 75 mg EC 2-04 TABLET BY ity of tablet 00:00: MOUTH [place] 00 TWICE A Medical DAY WITH Branch FOOD DICLOFENAC 2019-0 Yes [id number] TAKE ONE [facility] 75 mg EC 2-04 TABLET BY it[facility] of tablet 00:00: MOUTH [place] 00 TWICE A Medical DAY WITH Branch FOOD DICLOFENAC 2019-0 Yes [id number] TAKE ONE [facility] 75 mg EC 2-04 TABLET BY ity of tablet 00:00: MOUTH [place] 00 TWICE A Medical DAY WITH Branch FOOD DICLOFENAC 2019-0 Yes [id number] TAKE ONE [facility] 75 mg EC 2-04 TABLET BY ity of tablet 00:00: MOUTH [place] 00 TWICE A Medical DAY WITH Branch FOOD DICLOFENAC 2019-0 Yes [id number] TAKE ONE [facility] 75 mg EC 2-04 TABLET BY ity of tablet 00:00: MOUTH [place] 00 TWICE A Medical DAY WITH Branch FOOD DICLOFENAC 2019-0 Yes [id number] TAKE ONE [facility] 75 mg EC 2-04 TABLET BY it[facility] of tablet 00:00: MOUTH [place] 00 TWICE A Medical DAY WITH Branch FOOD DICLOFENAC 2019-0 Yes [id number] TAKE ONE [facility] 75 mg EC 2-04 TABLET BY ity of tablet 00:00: MOUTH [place] 00 TWICE A Medical DAY WITH Branch FOOD DICLOFENAC 2019-0 Yes [id number] TAKE ONE [facility] 75 mg EC 2-04 TABLET BY ity of tablet 00:00: MOUTH [place] 00 TWICE A Medical DAY WITH Branch FOOD DICLOFENAC 2019-0 Yes [id number] TAKE ONE [facility] 75 mg EC 2-04 TABLET BY ity of tablet 00:00: MOUTH [place] 00 TWICE A Medical DAY WITH Branch FOOD DICLOFENAC 2019-0 Yes [id number] TAKE ONE [facility] 75 mg EC 2-04 TABLET BY ity of tablet 00:00: MOUTH [place] 00 TWICE A Medical DAY WITH Branch FOOD DICLOFENAC 2019-0 Yes [id number] TAKE ONE [facility] 75 mg EC 2-04 TABLET BY ity of tablet 00:00: MOUTH [place] 00 TWICE A Medical DAY WITH Branch FOOD DICLOFENAC 2019-0 Yes [id number] TAKE ONE [facility] 75 mg EC 2-04 TABLET BY ity of tablet 00:00: MOUTH [place] 00 TWICE A Medical DAY WITH Branch FOOD DICLOFENAC 2019-0 Yes [id number] TAKE ONE [facility] 75 mg EC 2-04 TABLET BY ity of tablet 00:00: MOUTH [place] 00 TWICE A Medical DAY WITH Branch FOOD DICLOFENAC 2019-0 Yes [id number] TAKE ONE [facility] 75 mg EC 2-04 TABLET BY ity of tablet 00:00: MOUTH [place] 00 TWICE A Medical DAY WITH Branch FOOD DICLOFENAC 2019-0 Yes [id number] TAKE ONE [facility] 75 mg EC 2-04 TABLET BY ity of tablet 00:00: MOUTH [place] 00 TWICE A Medical DAY WITH Branch FOOD DICLOFENAC 2019-0 Yes [id number] TAKE ONE [facility] 75 mg EC 2-04 TABLET BY ity of tablet 00:00: MOUTH [place] 00 TWICE A Medical DAY WITH Branch FOOD DICLOFENAC 2019-0 Yes [id number] TAKE ONE [facility] 75 mg EC 2-04 TABLET BY ity of tablet 00:00: MOUTH [place] 00 TWICE A Medical DAY WITH Branch FOOD DICLOFENAC 2019-0 Yes [id number] TAKE ONE [facility] 75 mg EC 2-04 TABLET BY ity of tablet 00:00: MOUTH [place] 00 TWICE A Medical DAY WITH Branch FOOD DICLOFENAC 2019-0 Yes [id number] TAKE ONE [facility] 75 mg EC 2-04 TABLET BY ity of tablet 00:00: MOUTH [place] 00 TWICE A Medical DAY WITH Branch FOOD DICLOFENAC 2019-0 Yes [id number] TAKE ONE [facility] 75 mg EC 2-04 TABLET BY ity of tablet 00:00: MOUTH [place] 00 TWICE A Medical DAY WITH Branch FOOD DICLOFENAC 2019-0 Yes [id number] TAKE ONE [facility] 75 mg EC 2-04 TABLET BY ity of tablet 00:00: MOUTH [place] 00 TWICE A Medical DAY WITH Branch FOOD DICLOFENAC 2019-0 Yes [id number] TAKE ONE [facility] 75 mg EC 2-04 TABLET BY ity of tablet 00:00: MOUTH [place] 00 TWICE A Medical DAY WITH Branch FOOD DICLOFENAC 2019-0 Yes [id number] TAKE ONE [facility] 75 mg EC 2-04 TABLET BY ity of tablet 00:00: MOUTH [place] 00 TWICE A Medical DAY WITH Branch FOOD DICLOFENAC 2019-0 Yes [id number] TAKE ONE [facility] 75 mg EC 2-04 TABLET BY ity of tablet 00:00: MOUTH [place] 00 TWICE A Medical DAY WITH Branch FOOD DICLOFENAC 2019-0 Yes [id number] TAKE ONE [facility] 75 mg EC 2-04 TABLET BY ity of tablet 00:00: MOUTH [place] 00 TWICE A Medical DAY WITH Branch FOOD DICLOFENAC 2019-0 Yes [id number] TAKE ONE [facility] 75 mg EC 2-04 TABLET BY ity of tablet 00:00: MOUTH [place] 00 TWICE A Medical DAY WITH Branch FOOD DICLOFENAC 2019-0 Yes [id number] TAKE ONE [facility] 75 mg EC 2-04 TABLET BY ity of tablet 00:00: MOUTH [place] 00 TWICE A Medical DAY WITH Branch FOOD DICLOFENAC 2019-0 Yes [id number] TAKE ONE [facility] 75 mg EC 2-04 TABLET BY ity of tablet 00:00: MOUTH [place] 00 TWICE A Medical DAY WITH Branch FOOD DICLOFENAC 2019-0 Yes [id number] TAKE ONE [facility] 75 mg EC 2-04 TABLET BY ity of tablet 00:00: MOUTH [place] 00 TWICE A Medical DAY WITH Branch FOOD DICLOFENAC 2019-0 Yes [id number] TAKE ONE [facility] 75 mg EC 2-04 TABLET BY ity of tablet 00:00: MOUTH [place] 00 TWICE A Medical DAY WITH Branch FOOD DICLOFENAC 2019-0 Yes [id number] TAKE ONE [facility] 75 mg EC 2-04 TABLET BY ity of tablet 00:00: MOUTH [place] 00 TWICE A Medical DAY WITH Branch FOOD DICLOFENAC 2019-0 Yes [id number] TAKE ONE [facility] 75 mg EC 2-04 TABLET BY ity of tablet 00:00: MOUTH [place] 00 TWICE A Medical DAY WITH Branch FOOD DICLOFENAC 2019-0 Yes [id number] TAKE ONE [facility] 75 mg EC 2-04 TABLET BY ity of tablet 00:00: MOUTH [place] 00 TWICE A Medical DAY WITH Branch FOOD DICLOFENAC 2019-0 Yes [id number] TAKE ONE [facility] 75 mg EC 2-04 TABLET BY ity of tablet 00:00: MOUTH [place] 00 TWICE A Medical DAY WITH Branch FOOD DICLOFENAC 2019-0 Yes [id number] TAKE ONE [facility] 75 mg EC 2-04 TABLET BY ity of tablet 00:00: MOUTH [place] 00 TWICE A Medical DAY WITH Branch FOOD DICLOFENAC 2019-0 Yes [id number] TAKE ONE [facility] 75 mg EC 2-04 TABLET BY ity of tablet 00:00: MOUTH [place] 00 TWICE A Medical DAY WITH Branch FOOD DICLOFENAC 2019-0 Yes [id number] TAKE ONE [facility] 75 mg EC 2-04 TABLET BY ity of tablet 00:00: MOUTH [place] 00 TWICE A Medical DAY WITH Branch FOOD DICLOFENAC 2019-0 Yes [id number] TAKE ONE [facility] 75 mg EC 2-04 TABLET BY ity of tablet 00:00: MOUTH [place] 00 TWICE A Medical DAY WITH Branch FOOD DICLOFENAC 2019-0 Yes [id number] TAKE ONE [facility] 75 mg EC 2-04 TABLET BY ity of tablet 00:00: MOUTH [place] 00 TWICE A Medical DAY WITH Branch FOOD DICLOFENAC 2019-0 Yes [id number] TAKE ONE [facility] 75 mg EC 2-04 TABLET BY ity of tablet 00:00: MOUTH [place] 00 TWICE A Medical DAY WITH Branch FOOD DICLOFENAC 2019-0 Yes [id number] TAKE ONE [facility] 75 mg EC 2-04 TABLET BY ity of tablet 00:00: MOUTH [place] 00 TWICE A Medical DAY WITH Branch FOOD DICLOFENAC 2019-0 Yes [id number] TAKE ONE [facility] 75 mg EC 2-04 TABLET BY ity of tablet 00:00: MOUTH [place] 00 TWICE A Medical DAY WITH Branch FOOD ZOLPIDEM 10 2018- Yes [id number] TAKE 1 [facility] mg tablet 1-30 TABLET BY ity o f 00:00: MOUTH ONCE 00 DAILY AT Medical BEDTIME Branch NEEDED FOR INSOMNIA ZOLPIDEM 10 Yes [id number] TAKE 1 [facility] mg tablet 1-30 TABLET BY ity o f 00:00: MOUTH ONCE 00 DAILY AT Medical BEDTIME Branch NEEDED FOR INSOMNIA ZOLPIDEM 10 Yes [id number] TAKE 1 [facility] mg tablet 1-30 TABLET BY ity o f 00:00: MOUTH ONCE 00 DAILY AT Medical BEDTIME Branch NEEDED FOR INSOMNIA ZOLPIDEM 10 Yes [id number] TAKE 1 [facility] mg tablet 1-30 TABLET BY ity o f 00:00: MOUTH ONCE 00 DAILY AT Medical BEDTIME Branch NEEDED FOR INSOMNIA ZOLPIDEM 10 Yes [id number] TAKE 1 [facility] mg tablet 1-30 TABLET BY ity o f 00:00: MOUTH ONCE 00 DAILY AT Medical BEDTIME Branch NEEDED FOR INSOMNIA ZOLPIDEM 10 Yes [id number] TAKE 1 [facility] mg tablet 1-30 TABLET BY ity o f 00:00: MOUTH ONCE 00 DAILY AT Medical BEDTIME Branch NEEDED FOR INSOMNIA ZOLPIDEM 10 Yes [id number] TAKE 1 [facility] mg tablet 1-30 TABLET BY ity o f 00:00: MOUTH ONCE 00 DAILY AT Medical BEDTIME Branch NEEDED FOR INSOMNIA ZOLPIDEM 10 Yes [id number] TAKE 1 [facility] mg tablet 1-30 TABLET BY ity o f 00:00: MOUTH ONCE 00 DAILY AT Medical BEDTIME Branch NEEDED FOR INSOMNIA ZOLPIDEM 10 Yes [id number] TAKE 1 [facility] mg tablet 1-30 TABLET BY ity o f 00:00: MOUTH ONCE 00 DAILY AT Medical BEDTIME Branch NEEDED FOR INSOMNIA ZOLPIDEM 10 Yes [id number] TAKE 1 [facility] mg tablet 1-30 TABLET BY ity o f 00:00: MOUTH ONCE DAILY AT Medical BEDTIME Branch NEEDED FOR INSOMNIA ZOLPIDEM 10 Yes [id number] TAKE 1 [facility] mg tablet 1-30 TABLET BY ity o f 00:00: MOUTH ONCE DAILY AT Medical BEDTIME Branch NEEDED FOR INSOMNIA ZOLPIDEM 10 Yes [id number] TAKE 1 [facility] mg tablet 1-30 TABLET BY ity o f 00:00: MOUTH ONCE DAILY AT Medical BEDTIME Branch NEEDED FOR INSOMNIA ZOLPIDEM 10 Yes [id number] TAKE 1 [facility] mg tablet 1-30 TABLET BY ity o f 00:00: MOUTH ONCE 00 DAILY AT Medical BEDTIME Branch NEEDED FOR INSOMNIA ZOLPIDEM 10 Yes [id number] TAKE 1 [facility] mg tablet 1-30 TABLET BY ity o f 00:00: MOUTH ONCE 00 DAILY AT Medical BEDTIME Branch NEEDED FOR INSOMNIA ZOLPIDEM 10 Yes [id number] TAKE 1 [facility] mg tablet 1-30 TABLET BY ity o f 00:00: MOUTH ONCE 00 DAILY AT Medical BEDTIME Branch NEEDED FOR INSOMNIA ZOLPIDEM 10 Yes [id number] TAKE 1 [facility] mg tablet 1-30 TABLET BY ity o f 00:00: MOUTH ONCE 00 DAILY AT Medical BEDTIME Branch NEEDED FOR INSOMNIA ZOLPIDEM 10 Yes [id number] TAKE 1 [facility] mg tablet 1-30 TABLET BY ity o f 00:00: MOUTH ONCE 00 DAILY AT Medical BEDTIME Branch NEEDED FOR INSOMNIA ZOLPIDEM 10 Yes [id number] TAKE 1 [facility] mg tablet 1-30 TABLET BY ity o f 00:00: MOUTH ONCE 00 DAILY AT Medical BEDTIME Branch NEEDED FOR INSOMNIA ZOLPIDEM 10 Yes [id number] TAKE 1 [facility] mg tablet 1-30 TABLET BY ity o f 00:00: MOUTH ONCE 00 DAILY AT Medical BEDTIME Branch NEEDED FOR INSOMNIA ZOLPIDEM Yes [id number] TAKE 1 [facility] mg tablet 1-30 TABLET BY ity o f 00:00: MOUTH ONCE 00 DAILY AT Medical BEDTIME Branch NEEDED FOR INSOMNIA ZOLPIDEM Yes [id number] TAKE 1 [facility] mg tablet 1-30 TABLET BY ity o f 00:00: MOUTH ONCE 00 DAILY AT Medical BEDTIME Branch NEEDED FOR INSOMNIA ZOLPIDEM Yes [id number] TAKE 1 [facility] mg tablet 1-30 TABLET BY ity o f 00:00: MOUTH ONCE 00 DAILY AT Medical BEDTIME Branch NEEDED FOR INSOMNIA ZOLPIDEM 10 Yes [id number] TAKE 1 [facility] mg tablet 1-30 TABLET BY ity o f 00:00: MOUTH ONCE 00 DAILY AT Medical BEDTIME Branch NEEDED FOR INSOMNIA ZOLPIDEM 10 Yes [id number] TAKE 1 [facility] mg tablet 1-30 TABLET BY ity o f 00:00: MOUTH ONCE 00 DAILY AT Medical BEDTIME Branch NEEDED FOR INSOMNIA ZOLPIDEM 10 Yes [id number] TAKE 1 [facility] mg tablet 1-30 TABLET BY ity o f 00:00: MOUTH ONCE 00 DAILY AT Medical BEDTIME Branch NEEDED FOR INSOMNIA ZOLPIDEM 10 Yes [id number] TAKE 1 [facility] mg tablet 1-30 TABLET BY ity o f 00:00: MOUTH ONCE 00 DAILY AT Medical BEDTIME Branch NEEDED FOR INSOMNIA ZOLPIDEM Yes [id number] TAKE 1 [facility] mg tablet 1-30 TABLET BY ity o f 00:00: MOUTH ONCE 00 DAILY AT Medical BEDTIME Branch NEEDED FOR INSOMNIA ZOLPIDEM 10 Yes [id number] TAKE 1 [facility] mg tablet 1-30 TABLET BY ity o f 00:00: MOUTH ONCE 00 DAILY AT Medical BEDTIME Branch NEEDED FOR INSOMNIA ZOLPIDEM 10 Yes [id number] TAKE 1 [facility] mg tablet 1-30 TABLET BY ity o f 00:00: MOUTH ONCE 00 DAILY AT Medical BEDTIME Branch NEEDED FOR INSOMNIA ZOLPIDEM 10 Yes [id number] TAKE 1 [facility] mg tablet 1-30 TABLET BY ity o f 00:00: MOUTH ONCE DAILY AT Medical BEDTIME Branch NEEDED FOR INSOMNIA ZOLPIDEM 10 Yes [id number] TAKE 1 [facility] mg tablet 1-30 TABLET BY ity o f 00:00: MOUTH ONCE DAILY AT Medical BEDTIME Branch NEEDED FOR INSOMNIA ZOLPIDEM Yes [id number] TAKE 1 [facility] mg tablet 1-30 TABLET BY ity o f 00:00: MOUTH ONCE DAILY AT Medical BEDTIME Branch NEEDED FOR INSOMNIA ZOLPIDEM Yes [id number] TAKE 1 [facility] mg tablet 1-30 TABLET BY ity o f 00:00: MOUTH ONCE DAILY AT Medical BEDTIME Branch NEEDED FOR INSOMNIA ZOLPIDEM 10 Yes [id number] TAKE 1 [facility] mg tablet 1-30 TABLET BY ity o f 00:00: MOUTH ONCE DAILY AT Medical BEDTIME Branch NEEDED FOR INSOMNIA ZOLPIDEM 10 Yes [id number] TAKE 1 [facility] mg tablet 1-30 TABLET BY ity o f 00:00: MOUTH ONCE DAILY AT Medical BEDTIME Branch NEEDED FOR INSOMNIA ZOLPIDEM 10 Yes [id number] TAKE 1 [facility] mg tablet 1-30 TABLET BY ity o f 00:00: MOUTH ONCE DAILY AT Medical BEDTIME Branch NEEDED FOR INSOMNIA ZOLPIDEM 10 Yes [id number] TAKE 1 [facility] mg tablet 1-30 TABLET BY ity o f 00:00: MOUTH ONCE 00 DAILY AT Medical BEDTIME Branch NEEDED FOR INSOMNIA ZOLPIDEM 10 Yes [id number] TAKE 1 [facility] mg tablet 1-30 TABLET BY ity o f 00:00: MOUTH ONCE 00 DAILY AT Medical BEDTIME Branch NEEDED FOR INSOMNIA ZOLPIDEM 10 Yes [id number] TAKE 1 [facility] mg tablet 1-30 TABLET BY ity o f 00:00: MOUTH ONCE 00 DAILY AT Medical BEDTIME Branch NEEDED FOR INSOMNIA ZOLPIDEM 10 Yes [id number] TAKE 1 [facility] mg tablet 1-30 TABLET BY ity o f 00:00: MOUTH ONCE 00 DAILY AT Medical BEDTIME Branch NEEDED FOR INSOMNIA ZOLPIDEM Yes [id number] TAKE 1 [facility] mg tablet 1-30 TABLET BY ity o f 00:00: MOUTH ONCE 00 DAILY AT Medical BEDTIME Branch NEEDED FOR INSOMNIA ZOLPIDEM 10 Yes [id number] TAKE 1 [facility] mg tablet 1-30 TABLET BY ity o f 00:00: MOUTH ONCE 00 DAILY AT Medical BEDTIME Branch NEEDED FOR INSOMNIA ZOLPIDEM Yes [id number] TAKE 1 [facility] mg tablet 1-30 TABLET BY ity o f 00:00: MOUTH ONCE 00 DAILY AT Medical BEDTIME Branch NEEDED FOR INSOMNIA ZOLPIDEM Yes [id number] TAKE 1 [facility] mg tablet 1-30 TABLET BY ity o f 00:00: MOUTH ONCE 00 DAILY AT Medical BEDTIME Branch NEEDED FOR INSOMNIA azithromyci Yes [id number] 500mg Take 1 [facility] n 500 mg 3-13 tablet by ity of tablet 00:00: mouth [place] 00 daily. Medical Branch azithromyci 2018-0 Yes [id number] 500mg Take 1 [facility] n 500 mg 3-13 tablet by ity of tablet 00:00: mouth [place] 00 daily. Medical Branch azithromyci 2017-0 Yes [id number] 500mg Take 1 [facility] n 500 mg 3-13 tablet by ity of tablet 00:00: mouth [place] 00 daily. Medical Branch azithromyci 2018-0 Yes [id number] 500mg Take 1 [facility] n 500 mg 3-13 tablet by ity of tablet 00:00: mouth [place] 00 daily. Medical Branch azithromyci 2017-0 Yes [id number] 500mg Take 1 [facility] n 500 mg 3-13 tablet by ity of tablet 00:00: mouth [place] 00 daily. Medical Branch azithromyci 2017-0 Yes [id number] 500mg Take 1 [facility] n 500 mg 3-13 tablet by ity of tablet 00:00: mouth [place] 00 daily. [facility] 2018-0 Yes [id number] 500mg Take 1 [facility] n 500 mg 3-13 tablet by ity of tablet 00:00: mouth [place] 00 daily. [facility] 2017-0 Yes [id number] 500mg Take 1 [facility] n 500 mg 3-13 tablet by ity of tablet 00:00: mouth [place] 00 daily. [facility] 2017-0 Yes [id number] 500mg Take 1 [facility] n 500 mg 3-13 tablet by ity of tablet 00:00: mouth [place] 00 daily. [facility] 2017-0 Yes [id number] 500mg Take 1 [facility] n 500 mg 3-13 tablet by ity of tablet 00:00: mouth [place] 00 daily. [facility] 2017-0 Yes [id number] 500mg Take 1 [facility] n 500 mg 3-13 tablet by ity of tablet 00:00: mouth [place] 00 daily. [facility] 2017-0 Yes [id number] 500mg Take 1 [facility] n 500 mg 3-13 tablet by ity of tablet 00:00: mouth [place] 00 daily. [facility] 2017-0 Yes [id number] 500mg Take 1 [facility] n 500 mg 3-13 tablet by ity of tablet 00:00: mouth [place] 00 daily. [facility] 2017-0 Yes [id number] 500mg Take 1 [facility] n 500 mg 3-13 tablet by ity of tablet 00:00: mouth [place] 00 daily. [facility] 2017-0 Yes [id number] 500mg Take 1 [facility] n 500 mg 3-13 tablet by ity of tablet 00:00: mouth [place] 00 daily. [facility] [id number] 500mg Take 1 [facility] n 500 mg 3-13 tablet by ity of tablet 00:00: mouth [place] 00 daily. [facility] Yes [id number] 500mg Take 1 [facility] n 500 mg 3-13 tablet by ity of tablet 00:00: mouth [place] 00 daily. [facility] Yes [id number] 500mg Take 1 [facility] n 500 mg 3-13 tablet by ity of tablet 00:00: mouth [place] 00 daily. [facility] 2017-0 Yes [id number] 500mg Take 1 [facility] n 500 mg 3-13 tablet by ity of tablet 00:00: mouth [place] 00 daily. [facility] 2017-0 Yes [id number] 500mg Take 1 [facility] n 500 mg 3-13 tablet by ity of tablet 00:00: mouth [place] 00 daily. [facility] 2017-0 Yes [id number] 500mg Take 1 [facility] n 500 mg 3-13 tablet by ity of tablet 00:00: mouth [place] 00 daily. [facility] Yes [id number] 500mg Take 1 [facility] n 500 mg 3-13 tablet by ity of tablet 00:00: mouth [place] 00 daily. [facility] Yes [id number] 500mg Take 1 [facility] n 500 mg 3-13 tablet by ity of tablet 00:00: mouth [place] 00 daily. [facility] 2017- Yes [id number] 500mg Take 1 [facility] n 500 mg 3-13 tablet by ity of tablet 00:00: mouth [place] 00 daily. [facility] Yes [id number] 500mg Take 1 [facility] n 500 mg 3-13 tablet by ity of tablet 00:00: mouth [place] 00 daily. [facility] 0 Yes [id number] 500mg Take 1 [facility] n 500 mg 3-13 tablet by ity of tablet 00:00: mouth [place] 00 daily. [facility] 2017-0 Yes [id number] 500mg Take 1 [facility] n 500 mg 3-13 tablet by ity of tablet 00:00: mouth [place] 00 daily. [facility] 0 Yes [id number] 500mg Take 1 [facility] n 500 mg 3-13 tablet by ity of tablet 00:00: mouth [place] 00 daily. [facility] [facility] 2017-0 Yes [id number] 500mg Take 1 [facility] 500 mg 3-13 tablet by ity of tablet 00:00: mouth [place] 00 daily. [facility] 2017-0 Yes [id number] 500mg Take 1 [facility] 500 mg 3-13 tablet by ity of tablet 00:00: mouth [place] 00 daily. [facility] 2017-0 Yes [id number] 500mg Take 1 [facility] 500 mg 3-13 tablet by ity of tablet 00:00: mouth [place] 00 daily. [facility] 2018-0 Yes [id number] 500mg Take 1 [facility] 500 mg 3-13 tablet by ity of tablet 00:00: mouth [place] 00 daily. [facility] 0 Yes [id number] 500mg Take 1 [facility] 500 mg 3-13 tablet by ity of tablet 00:00: mouth [place] 00 daily. [facility] 2017-0 Yes [id number] 500mg Take 1 [facility] 500 mg 3-13 tablet by ity of tablet 00:00: mouth [place] 00 daily. [facility] 0 Yes [id number] 500mg Take 1 [facility] 500 mg 3-13 tablet by ity of tablet 00:00: mouth [place] 00 daily. [facility] 0 Yes [id number] 500mg Take 1 [facility] 500 mg 3-13 tablet by ity of tablet 00:00: mouth [place] 00 daily. [facility] 0 Yes [id number] 500mg Take 1 [facility] 500 mg 3-13 tablet by ity of tablet 00:00: mouth [place] 00 daily. [facility] 0 Yes [id number] 500mg Take 1 [facility] 500 mg 3-13 tablet by ity of tablet 00:00: mouth [place] 00 daily. [facility] 20180 2021- No [id number] 500mg Take 1 [facility] 500 mg 3-13 03-08 tablet by ity o f tablet 00:00: 00:00 mouth [place] 00 :00 daily. [facility] CLOTRIMAZOL 2016-04 Yes APPLY Unive rs E-BETAMETHA 1-28 CREAM ity of SONE cream 00:00: TOPICALLY [place] 00 TO Medical AFFECTED Branch AREA TWICE DAILY NEEDED CLOTRIMAZOL 2016-04 Yes APPLY Unive rs E-BETAMETHA 1-28 CREAM ity of SONE cream 00:00: TOPICALLY [place] 00 TO Medical AFFECTED Branch AREA TWICE DAILY NEEDED CLOTRIMAZOL 2016-04 Yes APPLY Unive rs E-BETAMETHA 1-28 CREAM ity of SONE cream 00:00: TOPICALLY [place] 00 TO Medical AFFECTED Branch AREA TWICE DAILY NEEDED CLOTRIMAZOL 2016-04 Yes APPLY Unive rs E-BETAMETHA 1-28 CREAM ity of SONE cream 00:00: TOPICALLY [place] 00 TO Medical AFFECTED Branch AREA TWICE DAILY NEEDED CLOTRIMAZOL 2016-04 Yes APPLY Unive rs E-BETAMETHA 1-28 CREAM ity of SONE cream 00:00: TOPICALLY [place] 00 TO Medical AFFECTED Branch AREA TWICE DAILY NEEDED CLOTRIMAZOL 2016-04 Yes APPLY Unive rs E-BETAMETHA 1-28 CREAM ity of SONE cream 00:00: TOPICALLY [place] 00 TO Medical AFFECTED Branch AREA TWICE DAILY NEEDED CLOTRIMAZOL 2016-04 Yes APPLY Unive rs E-BETAMETHA 1-28 CREAM ity of SONE cream 00:00: TOPICALLY [place] 00 TO Medical AFFECTED Branch AREA TWICE DAILY NEEDED CLOTRIMAZOL 2016-04 Yes APPLY Unive rs E-BETAMETHA 1-28 CREAM ity of SONE cream 00:00: TOPICALLY [place] 00 TO Medical AFFECTED Branch AREA TWICE DAILY NEEDED CLOTRIMAZOL 2016-04 Yes APPLY Unive rs E-BETAMETHA 1-28 CREAM ity of SONE cream 00:00: TOPICALLY [place] 00 TO Medical AFFECTED Branch AREA TWICE DAILY NEEDED CLOTRIMAZOL 2016-04 Yes APPLY Unive rs E-BETAMETHA 1-28 CREAM ity of SONE cream 00:00: TOPICALLY [place] 00 TO Medical AFFECTED Branch AREA TWICE DAILY NEEDED CLOTRIMAZOL 2016-04 Yes APPLY Unive rs E-BETAMETHA 1-28 CREAM ity of SONE cream 00:00: TOPICALLY [place] 00 TO Medical AFFECTED Branch AREA TWICE DAILY NEEDED CLOTRIMAZOL 2016-04 Yes APPLY Unive rs E-BETAMETHA 1-28 CREAM ity of SONE cream 00:00: TOPICALLY [place] 00 TO Medical AFFECTED Branch AREA TWICE DAILY NEEDED CLOTRIMAZOL 2016-04 Yes APPLY Unive rs E-BETAMETHA 1-28 CREAM ity of SONE cream 00:00: TOPICALLY [place] 00 TO Medical AFFECTED Branch AREA TWICE DAILY NEEDED CLOTRIMAZOL 2016-04 Yes APPLY Unive rs E-BETAMETHA 1-28 CREAM ity of SONE cream 00:00: TOPICALLY [place] 00 TO Medical AFFECTED Branch AREA TWICE DAILY NEEDED CLOTRIMAZOL 2016-04 Yes APPLY Unive rs E-BETAMETHA 1-28 CREAM ity of SONE cream 00:00: TOPICALLY [place] 00 TO Medical AFFECTED Branch AREA TWICE DAILY NEEDED CLOTRIMAZOL 2016-04 Yes APPLY Unive rs E-BETAMETHA 1-28 CREAM ity of SONE cream 00:00: TOPICALLY [place] 00 TO Medical AFFECTED Branch AREA TWICE DAILY NEEDED CLOTRIMAZOL 2016-04 Yes APPLY Unive rs E-BETAMETHA 1-28 CREAM ity of SONE cream 00:00: TOPICALLY [place] 00 TO Medical AFFECTED Branch AREA TWICE DAILY NEEDED CLOTRIMAZOL 2016-04 Yes APPLY Unive rs E-BETAMETHA 1-28 CREAM ity of SONE cream 00:00: TOPICALLY [place] 00 TO Medical AFFECTED Branch AREA TWICE DAILY NEEDED CLOTRIMAZOL 2016-04 Yes APPLY Unive rs E-BETAMETHA 1-28 CREAM ity of SONE cream 00:00: TOPICALLY [place] 00 TO Medical AFFECTED Branch AREA TWICE DAILY NEEDED CLOTRIMAZOL 2016-04 Yes APPLY Unive rs E-BETAMETHA 1-28 CREAM ity of SONE cream 00:00: TOPICALLY [place] 00 TO Medical AFFECTED Branch AREA TWICE DAILY NEEDED CLOTRIMAZOL 2016-04 Yes APPLY Unive rs E-BETAMETHA 1-28 CREAM ity of SONE cream 00:00: TOPICALLY [place] 00 TO Medical AFFECTED Branch AREA TWICE DAILY NEEDED CLOTRIMAZOL 2016-04 Yes APPLY Unive rs E-BETAMETHA 1-28 CREAM ity of SONE cream 00:00: TOPICALLY [place] 00 TO Medical AFFECTED Branch AREA TWICE DAILY NEEDED CLOTRIMAZOL 2016-04 Yes APPLY Unive rs E-BETAMETHA 1-28 CREAM ity of SONE cream 00:00: TOPICALLY [place] 00 TO Medical AFFECTED Branch AREA TWICE DAILY NEEDED CLOTRIMAZOL 2016-04 Yes APPLY Unive rs E-BETAMETHA 1-28 CREAM ity of SONE cream 00:00: TOPICALLY [place] 00 TO Medical AFFECTED Branch AREA TWICE DAILY NEEDED CLOTRIMAZOL 2016-04 Yes APPLY Unive rs E-BETAMETHA 1-28 CREAM ity of SONE cream 00:00: TOPICALLY [place] 00 TO Medical AFFECTED Branch AREA TWICE DAILY NEEDED CLOTRIMAZOL 2016-04 Yes APPLY Unive rs E-BETAMETHA 28 CREAM ity of SONE cream 00:00: TOPICALLY [place] 00 TO Medical AFFECTED Branch AREA TWICE DAILY NEEDED CLOTRIMAZOL 2016-04 Yes APPLY Unive rs E-BETAMETHA 28 CREAM ity of SONE cream 00:00: TOPICALLY [place] 00 TO Medical AFFECTED Branch AREA TWICE DAILY NEEDED CLOTRIMAZOL 2016-04 Yes APPLY Unive rs E-BETAMETHA 28 CREAM ity of SONE cream 00:00: TOPICALLY [place] 00 TO Medical AFFECTED Branch AREA TWICE DAILY NEEDED CLOTRIMAZOL 2016-04 Yes APPLY Unive rs E-BETAMETHA 28 CREAM ity of SONE cream 00:00: TOPICALLY [place] 00 TO Medical AFFECTED Branch AREA TWICE DAILY NEEDED CLOTRIMAZOL 2016-04 2020- No APPLY Univ ers E-BETAMETHA 05-20 08-25 CREAM ity of SONE cream 00:00: 00:00 TOPICALLY [place] 00 :00 TO Medical AFFECTED Branch AREA TWICE DAILY NEEDED levothyroxi Yes 100ug Take 100 U nivers ne 9-15 mcg by ity of (SYNTHROID) 13:24: mouth [place] 75 mcg 55 every Medical tablet morning. Branch Liraglutide Yes inject Univ ers (VICTOZA 9-15 under the ity of 2-TALA) 0.6 13:24: skin. [place] mg/0.1 mL 55 Medical (18 mg/3 Branch mL) injection metFORMIN Yes 500mg Take 500 Uni vers 500 mg 9-15 mg by ity of tablet 13:24: mouth 2 [place] 55 (two) Medical times Branch daily with meals. ERGOCALCIFE Yes Take by Uni vers ROL, 9-15 mouth. ity of VITAMIN D2, 13:24: [place] (VITAMIN D 55 Medical ORAL) Branch vitamin Yes 1000ug Take 1,000 Un [facility] B-12 9-15 mcg by ity of (VITAMIN 13:24: mouth [place] B-12) 1,000 55 daily. Medica l mcg tablet Branch losartan-hy Yes 1{tbl} Take 1 Tab [facility] drochloroth 9-15 by mouth ity of iazide 13:24: daily. [place] (HYZAAR) 55 Medical 100-25 mg Branch per tablet carvedilol Yes 6.25mg Take 6.25 [facility] (COREG) 9-15 mg by ity of 6.25 mg 13:24: mouth 2 [place] tablet 55 (two) Medical times Branch daily with meals. levothyroxi Yes 100ug Take 100 U nivers ne 9-15 mcg by ity of (SYNTHROID) 13:24: mouth [place] 75 mcg 55 every Medical tablet morning. Branch Liraglutide Yes inject Univ ers (VICTOZA 9-15 under the ity of 2-TALA) 0.6 13:24: skin. [place] mg/0.1 mL 55 Medical (18 mg/3 Branch mL) injection metFORMIN Yes 500mg Take 500 Uni vers 500 mg 9-15 mg by ity of tablet 13:24: mouth 2 [place] 55 (two) Medical times Branch daily with meals. ERGOCALCIFE Yes Take by Uni vers ROL, 9-15 mouth. ity of VITAMIN D2, 13:24: [place] (VITAMIN D 55 Medical ORAL) Branch vitamin Yes 1000ug Take 1,000 Un [facility] B-12 9-15 mcg by ity of (VITAMIN 13:24: mouth [place] B-12) 1,000 55 daily. Medica l mcg tablet Branch losartan-hy Yes 1{tbl} Take 1 Tab [facility] drochloroth 9-15 by mouth ity of iazide 13:24: daily. [place] (HYZAAR) 55 Medical 100-25 mg Branch per tablet losartan-hy Yes 1{tbl} Take 1 Tab [facility] drochloroth 9-15 by mouth ity of iazide 13:24: daily. [place] (HYZAAR) 55 Medical 100-25 mg Branch per tablet carvedilol Yes 6.25mg Take 6.25 Univers (COREG) 9-15 mg by ity of 6.25 mg 13:24: mouth 2 [place] tablet 55 (two) Medical times Branch daily with meals. levothyroxi Yes 100ug Take 100 U nivers ne 9-15 mcg by ity of (SYNTHROID) 13:24: mouth [place] 75 mcg 55 every Medical tablet morning. Branch carvedilol Yes 6.25mg Take 6.25 [facility] (COREG) 9-15 mg by ity of 6.25 mg 13:24: mouth 2 [place] tablet 55 (two) Medical times Branch daily with meals. Liraglutide Yes inject [facility] ers (VICTOZA 9-15 under the ity of 2-TALA) 0.6 13:24: skin. [place] mg/0.1 mL 55 Medical (18 mg/3 Branch mL) injection metFORMIN Yes 500mg Take 500 Uni vers 500 mg 9-15 mg by ity of tablet 13:24: mouth 2 [place] 55 (two) Medical times Branch daily with meals. ERGOCALCIFE Yes Take by Uni vers ROL, 9-15 mouth. ity of VITAMIN D2, 13:24: [place] (VITAMIN D 55 Medical ORAL) Branch vitamin Yes 1000ug Take 1,000 [facility] [place] B-12 9-15 mcg by ity of (VITAMIN 13:24: mouth [place] B-12) 1,000 55 daily. Medica l mcg tablet Branch levothyroxi Yes 100ug Take 100 U nivers ne 9-15 mcg by ity of (SYNTHROID) 13:24: mouth [place] 75 mcg 55 every Medical tablet morning. Branch losartan-hy Yes 1{tbl} Take 1 Tab [facility] drochloroth 9-15 by mouth ity of iazide 13:24: daily. [place] (HYZAAR) 55 Medical 100-25 mg Branch per tablet carvedilol Yes 6.25mg Take 6.25 [facility] (COREG) 9-15 mg by ity of 6.25 mg 13:24: mouth 2 [place] tablet 55 (two) Medical times Branch daily with meals. levothyroxi Yes 100ug Take 100 U nivers ne 9-15 mcg by ity of (SYNTHROID) 13:24: mouth [place] 75 mcg 55 every Medical tablet morning. Branch Liraglutide Yes inject Univ ers (VICTOZA 9-15 under the ity of 2-TALA) 0.6 13:24: skin. [place] mg/0.1 mL 55 Medical (18 mg/3 Branch mL) injection metFORMIN Yes 500mg Take 500 Uni vers 500 mg 9-15 mg by ity of tablet 13:24: mouth 2 [place] 55 (two) Medical times Branch daily with meals. ERGOCALCIFE Yes Take by Uni vers ROL, 9-15 mouth. ity of VITAMIN D2, 13:24: [place] (VITAMIN D 55 Medical ORAL) Branch vitamin Yes 1000ug Take 1,000 Un [place] B-12 9-15 mcg by ity of (VITAMIN 13:24: mouth [place] B-12) 1,000 55 daily. Medica l mcg tablet Branch Liraglutide Yes inject Univ ers (VICTOZA 9-15 under the ity of 2-TALA) 0.6 13:24: skin. [place] mg/0.1 mL 55 Medical (18 mg/3 Branch mL) injection losartan-hy Yes 1{tbl} Take 1 Tab [facility] drochloroth 9-15 by mouth ity of iazide 13:24: daily. [place] (HYZAAR) 55 Medical 100-25 mg Branch per tablet carvedilol Yes 6.25mg Take 6.25 Univers (COREG) 9-15 mg by ity of 6.25 mg 13:24: mouth 2 [place] tablet 55 (two) Medical times Branch daily with meals. levothyroxi Yes 100ug Take 100 U nivers ne 9-15 mcg by ity of (SYNTHROID) 13:24: mouth [place] 75 mcg 55 every Medical tablet morning. Branch metFORMIN Yes 500mg Take 500 Uni vers 500 mg 9-15 mg by ity of tablet 13:24: mouth 2 [place] 55 (two) Medical times Branch daily with meals. Liraglutide Yes inject Univ ers (VICTOZA 9-15 under the ity of 2-TALA) 0.6 13:24: skin. [place] mg/0.1 mL 55 Medical (18 mg/3 Branch mL) injection metFORMIN Yes 500mg Take 500 Uni vers 500 mg 9-15 mg by ity of tablet 13:24: mouth 2 [place] 55 (two) Medical times Branch daily with meals. ERGOCALCIFE Yes Take by Uni vers ROL, 9-15 mouth. ity of VITAMIN D2, 13:24: [place] (VITAMIN D 55 Medical ORAL) Branch vitamin Yes 1000ug Take 1,000 Un [place] B-12 9-15 mcg by ity of (VITAMIN 13:24: mouth [place] B-12) 1,000 55 daily. Medica l mcg tablet Branch ERGOCALCIFE Yes Take by Uni vers ROL, 9-15 mouth. ity of VITAMIN D2, 13:24: [place] (VITAMIN D 55 Medical ORAL) Branch losartan-hy Yes 1{tbl} Take 1 Tab [facility] drochloroth 9-15 by mouth ity of iazide 13:24: daily. [place] (HYZAAR) 55 Medical 100-25 mg Branch per tablet carvedilol Yes 6.25mg Take 6.25 Univers (COREG) 9-15 mg by ity of 6.25 mg 13:24: mouth 2 [place] tablet 55 (two) Medical times Branch daily with meals. levothyroxi Yes 100ug Take 100 U nivers ne 9-15 mcg by ity of (SYNTHROID) 13:24: mouth [place] 75 mcg 55 every Medical tablet morning. Branch Liraglutide Yes inject [facility] ers (VICTOZA 9-15 under the ity of 2-TALA) 0.6 13:24: skin. [place] mg/0.1 mL 55 Medical (18 mg/3 Branch mL) injection vitamin Yes 1000ug Take 1,000 [place] B-12 9-15 mcg by ity of (VITAMIN 13:24: mouth [place] B-12) 1,000 55 daily. Medica l mcg tablet Branch metFORMIN Yes 500mg Take 500 Uni vers 500 mg 9-15 mg by ity of tablet 13:24: mouth 2 [place] 55 (two) Medical times Branch daily with meals. ERGOCALCIFE Yes Take by Uni vers ROL, 9-15 mouth. ity of VITAMIN D2, 13:24: [place] (VITAMIN D 55 Medical ORAL) Branch vitamin Yes 1000ug Take 1,000 [place] B-12 9-15 mcg by ity of (VITAMIN 13:24: mouth [place] B-12) 1,000 55 daily. Medica l mcg tablet Branch losartan-hy Yes 1{tbl} Take 1 Tab [facility] drochloroth 9-15 by mouth ity of iazide 13:24: daily. [place] (HYZAAR) 55 Medical 100-25 mg Branch per tablet carvedilol 2017-0 Yes 6.25mg Take 6.25 [facility] (COREG) 9-15 mg by ity of 6.25 mg 13:24: mouth 2 [place] tablet 55 (two) Medical times Branch daily with meals. levothyroxi Yes 100ug Take 100 U nivers ne 9-15 mcg by ity of (SYNTHROID) 13:24: mouth [place] 75 mcg 55 every Medical tablet morning. Branch Liraglutide Yes inject Univ ers (VICTOZA 9-15 under the ity of 2-TALA) 0.6 13:24: skin. [place] mg/0.1 mL 55 Medical (18 mg/3 Branch mL) injection metFORMIN Yes 500mg Take 500 Uni vers 500 mg 9-15 mg by ity of tablet 13:24: mouth 2 [place] 55 (two) Medical times Branch daily with meals. ERGOCALCIFE Yes Take by Uni vers ROL, 9-15 mouth. ity of VITAMIN D2, 13:24: [place] (VITAMIN D 55 Medical ORAL) Branch vitamin Yes 1000ug Take 1,000 [place] B-12 9-15 mcg by ity of (VITAMIN 13:24: mouth [place] B-12) 1,000 55 daily. Medica l mcg tablet Branch losartan-hy Yes 1{tbl} Take 1 Tab [facility] drochloroth 9-15 by mouth ity of iazide 13:24: daily. [place] (HYZAAR) 55 Medical 100-25 mg Branch per tablet carvedilol Yes 6.25mg Take 6.25 [facility] (COREG) 9-15 mg by ity of 6.25 mg 13:24: mouth 2 [place] tablet 55 (two) Medical times Branch daily with meals. levothyroxi Yes 100ug Take 100 U nivers ne 9-15 mcg by ity of (SYNTHROID) 13:24: mouth [place] 75 mcg 55 every Medical tablet morning. Branch Liraglutide Yes inject Univ ers (VICTOZA 9-15 under the ity of 2-TALA) 0.6 13:24: skin. [place] mg/0.1 mL 55 Medical (18 mg/3 Branch mL) injection metFORMIN Yes 500mg Take 500 Uni vers 500 mg 9-15 mg by ity of tablet 13:24: mouth 2 [place] 55 (two) Medical times Branch daily with meals. ERGOCALCIFE 2017-0 Yes Take by Uni vers ROL, 9-15 mouth. ity of VITAMIN D2, 13:24: [place] (VITAMIN D 55 Medical ORAL) Branch vitamin Yes 1000ug Take 1,000 [place] B-12 9-15 mcg by ity of (VITAMIN 13:24: mouth [place] B-12) 1,000 55 daily. Medica l mcg tablet Branch losartan-hy Yes 1{tbl} Take 1 Tab [facility] drochloroth 9-15 by mouth ity of iazide 13:24: daily. [place] (HYZAAR) 55 Medical 100-25 mg Branch per tablet carvedilol Yes 6.25mg Take 6.25 [facility] (COREG) 9-15 mg by ity of 6.25 mg 13:24: mouth 2 [place] tablet 55 (two) Medical times Branch daily with meals. levothyroxi Yes 100ug Take 100 U nivers ne 9-15 mcg by ity of (SYNTHROID) 13:24: mouth [place] 75 mcg 55 every Medical tablet morning. Branch Liraglutide Yes inject [facility] ers (VICTOZA 9-15 under the ity of 2-TALA) 0.6 13:24: skin. [place] mg/0.1 mL 55 Medical (18 mg/3 Branch mL) injection metFORMIN Yes 500mg Take 500 Uni vers 500 mg 9-15 mg by ity of tablet 13:24: mouth 2 [place] 55 (two) Medical times Branch daily with meals. ERGOCALCIFE Yes Take by Uni vers ROL, 9-15 mouth. ity of VITAMIN D2, 13:24: [place] (VITAMIN D 55 Medical ORAL) Branch vitamin Yes 1000ug Take 1,000 [facility] [place] B-12 9-15 mcg by ity of (VITAMIN 13:24: mouth [place] B-12) 1,000 55 daily. Medica l mcg tablet Branch losartan-hy Yes 1{tbl} Take 1 Tab [facility] drochloroth 9-15 by mouth ity of iazide 13:24: daily. [place] (HYZAAR) 55 Medical 100-25 mg Branch per tablet carvedilol Yes 6.25mg Take 6.25 [facility] (COREG) 9-15 mg by ity of 6.25 mg 13:24: mouth 2 [place] tablet 55 (two) Medical times Branch daily with meals. levothyroxi 2016- Yes 100ug Take 100 U nivers ne 9-15 mcg by ity of (SYNTHROID) 13:24: mouth [place] 75 mcg 55 every Medical tablet morning. Branch Liraglutide Yes inject [facility] ers (VICTOZA 9-15 under the ity of 2-TALA) 0.6 13:24: skin. [place] mg/0.1 mL 55 Medical (18 mg/3 Branch mL) injection metFORMIN Yes 500mg Take 500 Uni vers 500 mg 9-15 mg by ity of tablet 13:24: mouth 2 [place] 55 (two) Medical times Branch daily with meals. ERGOCALCIFE Yes Take by Uni vers ROL, 9-15 mouth. ity of VITAMIN D2, 13:24: [place] (VITAMIN D 55 Medical ORAL) Branch vitamin Yes 1000ug Take 1,000 [place] B-12 9-15 mcg by ity of (VITAMIN 13:24: mouth [place] B-12) 1,000 55 daily. Medica l mcg tablet Branch losartan-hy Yes 1{tbl} Take 1 Tab [facility] drochloroth 9-15 by mouth ity of iazide 13:24: daily. [place] (HYZAAR) 55 Medical 100-25 mg Branch per tablet carvedilol Yes 6.25mg Take 6.25 [facility] (COREG) 9-15 mg by ity of 6.25 mg 13:24: mouth 2 [place] tablet 55 (two) Medical times Branch daily with meals. levothyroxi Yes 100ug Take 100 U nivers ne 9-15 mcg by ity of (SYNTHROID) 13:24: mouth [place] 75 mcg 55 every Medical tablet morning. Branch Liraglutide Yes inject Univ ers (VICTOZA 9-15 under the ity of 2-TALA) 0.6 13:24: skin. [place] mg/0.1 mL 55 Medical (18 mg/3 Branch mL) injection metFORMIN 0 Yes 500mg Take 500 Uni vers 500 mg 9-15 mg by ity of tablet 13:24: mouth 2 [place] 55 (two) Medical times Branch daily with meals. ERGOCALCIFE Yes Take by Uni vers ROL, 9-15 mouth. ity of VITAMIN D2, 13:24: [place] (VITAMIN D 55 Medical ORAL) Branch vitamin Yes 1000ug Take 1,000 [place] B-12 9-15 mcg by ity of (VITAMIN 13:24: mouth [place] B-12) 1,000 55 daily. Medica l mcg tablet Branch losartan-hy Yes 1{tbl} Take 1 Tab [facility] drochloroth 9-15 by mouth ity of iazide 13:24: daily. [place] (HYZAAR) 55 Medical 100-25 mg Branch per tablet losartan-hy Yes 1{tbl} Take 1 Tab [facility] drochloroth 9-15 by mouth ity of iazide 13:24: daily. [place] (HYZAAR) 55 Medical 100-25 mg Branch per tablet carvedilol Yes 6.25mg Take 6.25 Univers (COREG) 9-15 mg by ity of 6.25 mg 13:24: mouth 2 [place] tablet 55 (two) Medical times Branch daily with meals. levothyroxi Yes 100ug Take 100 U nivers ne 9-15 mcg by ity of (SYNTHROID) 13:24: mouth [place] 75 mcg 55 every Medical tablet morning. Branch Liraglutide Yes inject Univ ers (VICTOZA 9-15 under the ity of 2-TALA) 0.6 13:24: skin. [place] mg/0.1 mL 55 Medical (18 mg/3 Branch mL) injection metFORMIN Yes 500mg Take 500 Uni vers 500 mg 9-15 mg by ity of tablet 13:24: mouth 2 [place] 55 (two) Medical times Branch daily with meals. ERGOCALCIFE Yes Take by Uni vers ROL, 9-15 mouth. ity of VITAMIN D2, 13:24: [place] (VITAMIN D 55 Medical ORAL) Branch vitamin Yes 1000ug Take 1,000 [facility] [place] B-12 9-15 mcg by ity of (VITAMIN 13:24: mouth [place] B-12) 1,000 55 daily. Medica l mcg tablet Branch carvedilol Yes 6.25mg Take 6.25 [facility] (COREG) 9-15 mg by ity of 6.25 mg 13:24: mouth 2 [place] tablet 55 (two) Medical times Branch daily with meals. levothyroxi Yes 100ug Take 100 U nivers ne 9-15 mcg by ity of (SYNTHROID) 13:24: mouth [place] 75 mcg 55 every Medical tablet morning. Branch carvedilol Yes 6.25mg Take 6.25 [facility] (COREG) 9-15 mg by ity of 6.25 mg 13:24: mouth 2 [place] tablet 55 (two) Medical times Branch daily with meals. metFORMIN Yes 500mg Take 500 Uni vers 500 mg 9-15 mg by ity of tablet 13:24: mouth 2 [place] 55 (two) Medical times Branch daily with meals. Liraglutide Yes inject [facility] ers (VICTOZA 9-15 under the ity of 2-TALA) 0.6 13:24: skin. [place] mg/0.1 mL 55 Medical (18 mg/3 Branch mL) injection carvedilol Yes 6.25mg Take 6.25 [facility] (COREG) 9-15 mg by ity of 6.25 mg 13:24: mouth 2 [place] tablet 55 (two) Medical times Branch daily with meals. metFORMIN Yes 500mg Take 500 Uni vers 500 mg 9-15 mg by ity of tablet 13:24: mouth 2 [place] 55 (two) Medical times Branch daily with meals. metFORMIN Yes 500mg Take 500 Uni vers 500 mg 9-15 mg by ity of tablet 13:24: mouth 2 [place] 55 (two) Medical times Branch daily with meals. ERGOCALCIFE Yes Take by Uni vers ROL, 9-15 mouth. ity of VITAMIN D2, 13:24: [place] (VITAMIN D 55 Medical ORAL) Branch carvedilol Yes 6.25mg Take 6.25 [facility] (COREG) 9-15 mg by ity of 6.25 mg 13:24: mouth 2 [place] tablet 55 (two) Medical times Branch daily with meals. vitamin 2017- Yes 1000ug Take 1,000 [facility] [place] B-12 9-15 mcg by ity of (VITAMIN 13:24: mouth [place] B-12) 1,000 55 daily. Medica l mcg tablet Branch metFORMIN Yes 500mg Take 500 Uni vers 500 mg 9-15 mg by ity of tablet 13:24: mouth 2 [place] 55 (two) Medical times Branch daily with meals. carvedilol Yes 6.25mg Take 6.25 [facility] (COREG) 9-15 mg by ity of 6.25 mg 13:24: mouth 2 [place] tablet 55 (two) Medical times Branch daily with meals. metFORMIN Yes 500mg Take 500 Uni vers 500 mg 9-15 mg by ity of tablet 13:24: mouth 2 [place] 55 (two) Medical times Branch daily with meals. losartan-hy Yes 1{tbl} Take 1 Tab [facility] drochloroth 9-15 by mouth ity of iazide 13:24: daily. [place] (HYZAAR) 55 Medical 100-25 mg Branch per tablet carvedilol Yes 6.25mg Take 6.25 [facility] (COREG) 9-15 mg by ity of 6.25 mg 13:24: mouth 2 [place] tablet 55 (two) Medical times Branch daily with meals. levothyroxi Yes 100ug Take 100 U nivers ne 9-15 mcg by ity of (SYNTHROID) 13:24: mouth [place] 75 mcg 55 every Medical tablet morning. Branch Liraglutide Yes inject [facility] ers (VICTOZA 9-15 under the ity of 2-TALA) 0.6 13:24: skin. [place] mg/0.1 mL 55 Medical (18 mg/3 Branch mL) injection metFORMIN Yes 500mg Take 500 Uni vers 500 mg 9-15 mg by ity of tablet 13:24: mouth 2 [place] 55 (two) Medical times Branch daily with meals. ERGOCALCIFE Yes Take by Uni vers ROL, 9-15 mouth. ity of VITAMIN D2, 13:24: [place] (VITAMIN D 55 Medical ORAL) Branch vitamin Yes 1000ug Take 1,000 [place] B-12 9-15 mcg by ity of (VITAMIN 13:24: mouth [place] B-12) 1,000 55 daily. Medica l mcg tablet Branch losartan-hy 2016- Yes 1{tbl} Take 1 Tab [facility] drochloroth 9-15 by mouth ity of iazide 13:24: daily. [place] (HYZAAR) 55 Medical 100-25 mg Branch per tablet carvedilol Yes 6.25mg Take 6.25 [facility] (COREG) 9-15 mg by ity of 6.25 mg 13:24: mouth 2 [place] tablet 55 (two) Medical times Branch daily with meals. levothyroxi Yes 100ug Take 100 U nivers ne 9-15 mcg by ity of (SYNTHROID) 13:24: mouth [place] 75 mcg 55 every Medical tablet morning. Branch Liraglutide Yes inject [facility] ers (VICTOZA 9-15 under the ity of 2-TALA) 0.6 13:24: skin. [place] mg/0.1 mL 55 Medical (18 mg/3 Branch mL) injection metFORMIN Yes 500mg Take 500 Uni vers 500 mg 9-15 mg by ity of tablet 13:24: mouth 2 [place] 55 (two) Medical times Branch daily with meals. ERGOCALCIFE Yes Take by Uni vers ROL, 9-15 mouth. ity of VITAMIN D2, 13:24: [place] (VITAMIN D 55 Medical ORAL) Branch vitamin Yes 1000ug Take 1,000 [place] B-12 9-15 mcg by ity of (VITAMIN 13:24: mouth [place] B-12) 1,000 55 daily. Medica l mcg tablet Branch losartan-hy Yes 1{tbl} Take 1 Tab [facility] drochloroth 9-15 by mouth ity of iazide 13:24: daily. [place] (HYZAAR) 55 Medical 100-25 mg Branch per tablet carvedilol Yes 6.25mg Take 6.25 [facility] (COREG) 9-15 mg by ity of 6.25 mg 13:24: mouth 2 [place] tablet 55 (two) Medical times Branch daily with meals. ibuprofen Yes [id number] 800mg Take 1 U nivers 800 mg 9-14 tablet by ity of tablet 00:00: mouth 3 [place] 00 (three) Medical times Branch daily with meals. ibuprofen Yes [id number] 800mg Take 1 U nivers 800 mg 9-14 tablet by ity of tablet 00:00: mouth 3 [place] 00 (three) Medical times Branch daily with meals. ibuprofen Yes [id number] 800mg Take 1 U nivers 800 mg 9-14 tablet by ity of tablet 00:00: mouth 3 [place] 00 (three) Medical times Branch daily with meals. ibuprofen Yes [id number] 800mg Take 1 U nivers 800 mg 9-14 tablet by ity of tablet 00:00: mouth 3 [place] 00 (three) Medical times Branch daily with meals. ibuprofen 2017-0 Yes [id number] 800mg Take 1 U nivers 800 mg 9-14 tablet by ity of tablet 00:00: mouth (three) Medical times Branch daily with meals. ibuprofen 2017-0 Yes [id number] 800mg Take 1 U nivers 800 mg 9-14 tablet by ity of tablet 00:00: mouth (three) Medical times Branch daily with meals. ibuprofen 2017-0 Yes [id number] 800mg Take 1 U nivers 800 mg 9-14 tablet by ity of tablet 00:00: mouth (three) Medical times Branch daily with meals. ibuprofen 2016-0 Yes [id number] 800mg Take 1 U nivers 800 mg 9-14 tablet by ity of tablet 00:00: mouth (three) Medical times Branch daily with meals. ibuprofen 2016-0 Yes [id number] 800mg Take 1 U nivers 800 mg 9-14 tablet by ity of tablet 00:00: mouth (three) Medical times Branch daily with meals. ibuprofen 0 Yes [id number] 800mg Take 1 U nivers 800 mg 9-14 tablet by ity of tablet 00:00: mouth (three) Medical times Branch daily with meals. ibuprofen 0 Yes [id number] 800mg Take 1 U nivers 800 mg 9-14 tablet by ity of tablet 00:00: mouth (three) Medical times Branch daily with meals. ibuprofen 2016-0 Yes [id number] 800mg Take 1 U nivers 800 mg 9-14 tablet by ity of tablet 00:00: mouth (three) Medical times Branch daily with meals. ibuprofen 2017-0 Yes [id number] 800mg Take 1 U nivers 800 mg 9-14 tablet by ity of tablet 00:00: mouth (three) Medical times Branch daily with meals. ibuprofen 2017-0 Yes [id number] 800mg Take 1 U nivers 800 mg 9-14 tablet by ity of tablet 00:00: mouth (three) Medical times Branch daily with meals. ibuprofen 2017-0 Yes [id number] 800mg Take 1 U nivers 800 mg 9-14 tablet by ity of tablet 00:00: mouth (three) Medical times Branch daily with meals. ibuprofen 2017-0 Yes [id number] 800mg Take 1 U nivers 800 mg 9-14 tablet by ity of tablet 00:00: mouth (three) Medical times Branch daily with meals. ibuprofen 2017-0 Yes [id number] 800mg Take 1 U nivers 800 mg 9-14 tablet by ity of tablet 00:00: mouth (three) Medical times Branch daily with meals. ibuprofen 2017-0 Yes [id number] 800mg Take 1 U nivers 800 mg 9-14 tablet by ity of tablet 00:00: mouth (three) Medical times Branch daily with meals. ibuprofen 2017-0 Yes [id number] 800mg Take 1 U nivers 800 mg 9-14 tablet by ity of tablet 00:00: mouth (three) Medical times Branch daily with meals. ibuprofen 2017-0 Yes [id number] 800mg Take 1 U nivers 800 mg 9-14 tablet by ity of tablet 00:00: mouth (three) Medical times Branch daily with meals. ibuprofen 2017-0 Yes [id number] 800mg Take 1 U nivers 800 mg 9-14 tablet by ity of tablet 00:00: mouth (three) Medical times Branch daily with meals. ibuprofen 2017-0 Yes [id number] 800mg Take 1 U nivers 800 mg 9-14 tablet by ity of tablet 00:00: mouth (three) Medical times Branch daily with meals. ibuprofen 2017-0 Yes [id number] 800mg Take 1 U nivers 800 mg 9-14 tablet by ity of tablet 00:00: mouth (three) Medical times Branch daily with meals. ibuprofen 2017-0 Yes [id number] 800mg Take 1 U nivers 800 mg 9-14 tablet by ity of tablet 00:00: mouth (three) Medical times Branch daily with meals. ibuprofen 2017-0 Yes [id number] 800mg Take 1 U nivers 800 mg 9-14 tablet by ity of tablet 00:00: mouth (three) Medical times Branch daily with meals. ibuprofen 2017-0 Yes [id number] 800mg Take 1 U nivers 800 mg 9-14 tablet by ity of tablet 00:00: mouth (three) Medical times Branch daily with meals. ibuprofen 2017-0 Yes [id number] 800mg Take 1 U nivers 800 mg 9-14 tablet by ity of tablet 00:00: mouth 3 [place] 00 (three) Medical times Branch daily with meals. ibuprofen Yes [id number] 800mg Take 1 U nivers 800 mg 9-14 tablet by ity of tablet 00:00: mouth 3 00 (three) Medical times Branch daily with meals. ibuprofen Yes [id number] 800mg Take 1 U nivers 800 mg 9-14 tablet by ity of tablet 00:00: mouth 3 00 (three) Medical times Branch daily with meals. ibuprofen Yes [id number] 800mg Take 1 U nivers 800 mg 9-14 tablet by ity of tablet 00:00: mouth 3 00 (three) Medical times Branch daily with meals. ibuprofen Yes [id number] 800mg Take 1 U nivers 800 mg 9-14 tablet by ity of tablet 00:00: mouth 3 00 (three) Medical times Branch daily with meals. ibuprofen 2020- No [id number] 800mg Take 1 Univers 800 mg 9-14 10-13 tablet by ity of tablet 00:00: 00:00 mouth 3 [place] 00 :00 (three) Medical times Branch daily with meals. triamcinolo 2015- Yes [id number] Apply to [facility] 2-08 area(s) 2 ity of acetonide 00:00: (two) [place] (KENALOG) 00 times Medical 0.1 % daily. Branch ointment triamcinolo 2015- Yes [id number] Apply to [facility] ne 2-08 area(s) 2 ity of acetonide 00:00: (two) [place] (KENALOG) 00 times Medical 0.1 % daily. Branch ointment triamcinolo 2015- Yes [id number] Apply to [facility] ne 2-08 area(s) 2 ity of acetonide 00:00: (two) [place] (KENALOG) 00 times Medical 0.1 % daily. Branch ointment triamcinolo 2015- Yes [id number] Apply to [facility] ne 2-08 area(s) 2 ity of acetonide 00:00: (two) [place] (KENALOG) 00 times Medical 0.1 % daily. Branch ointment triamcinolo 2015- Yes [id number] Apply to [facility] ne 2-08 area(s) 2 ity of acetonide 00:00: (two) [place] (KENALOG) 00 times Medical 0.1 % daily. Branch ointment triamcinolo 2015-04 Yes [id number] Apply to Univers ne 2-08 area(s) 2 ity of acetonide 00:00: (two) [place] (KENALOG) 00 times Medical 0.1 % daily. Branch ointment triamcinolo 2015-04 Yes [id number] Apply to Univers ne 2-08 area(s) 2 ity of acetonide 00:00: (two) [place] (KENALOG) 00 times Medical 0.1 % daily. Branch ointment triamcinolo 2015-04 Yes [id number] Apply to Univers ne 2-08 area(s) 2 ity of acetonide 00:00: (two) [place] (KENALOG) 00 times Medical 0.1 % daily. Branch ointment triamcinolo 2015-04 Yes [id number] Apply to Univers ne 2-08 area(s) 2 ity of acetonide 00:00: (two) [place] (KENALOG) 00 times Medical 0.1 % daily. Branch ointment triamcinolo 2015-04 Yes [id number] Apply to Univers ne 2-08 area(s) 2 ity of acetonide 00:00: (two) [place] (KENALOG) 00 times Medical 0.1 % daily. Branch ointment triamcinolo 2015-04 Yes [id number] Apply to Univers ne 2-08 area(s) 2 ity of acetonide 00:00: (two) [place] (KENALOG) 00 times Medical 0.1 % daily. Branch ointment triamcinolo 2015-04 Yes [id number] Apply to Univers ne 2-08 area(s) 2 ity of acetonide 00:00: (two) [place] (KENALOG) 00 times Medical 0.1 % daily. Branch ointment triamcinolo 2015-04 Yes [id number] Apply to Univers ne 2-08 area(s) 2 ity of acetonide 00:00: (two) [place] (KENALOG) 00 times Medical 0.1 % daily. Branch ointment triamcinolo 2015-04 Yes [id number] Apply to Univers ne 2-08 area(s) 2 ity of acetonide 00:00: (two) [place] (KENALOG) 00 times Medical 0.1 % daily. Branch ointment triamcinolo 2015-04 Yes [id number] Apply to Univers ne 2-08 area(s) 2 ity of acetonide 00:00: (two) [place] (KENALOG) 00 times Medical 0.1 % daily. Branch ointment triamcinolo 2015-04 Yes [id number] Apply to Univers ne 2-08 area(s) 2 ity of acetonide 00:00: (two) [place] (KENALOG) 00 times Medical 0.1 % daily. Branch ointment triamcinolo 2015-04 Yes [id number] Apply to Univers ne 2-08 area(s) 2 ity of acetonide 00:00: (two) [place] (KENALOG) 00 times Medical 0.1 % daily. Branch ointment triamcinolo 2015-04 Yes [id number] Apply to Univers ne 2-08 area(s) 2 ity of acetonide 00:00: (two) [place] (KENALOG) 00 times Medical 0.1 % daily. Branch ointment triamcinolo 2015-04 Yes [id number] Apply to Univers ne 2-08 area(s) 2 ity of acetonide 00:00: (two) [place] (KENALOG) 00 times Medical 0.1 % daily. Branch ointment triamcinolo 2015-04 Yes [id number] Apply to Univers ne 2-08 area(s) 2 ity of acetonide 00:00: (two) [place] (KENALOG) 00 times Medical 0.1 % daily. Branch ointment triamcinolo 2015-04 Yes [id number] Apply to Univers ne 2-08 area(s) 2 ity of acetonide 00:00: (two) [place] (KENALOG) 00 times Medical 0.1 % daily. Branch ointment triamcinolo 2015-04 Yes [id number] Apply to Univers ne 2-08 area(s) 2 ity of acetonide 00:00: (two) [place] (KENALOG) 00 times Medical 0.1 % daily. Branch ointment triamcinolo 2015-04 Yes [id number] Apply to Univers ne 2-08 area(s) 2 ity of acetonide 00:00: (two) [place] (KENALOG) 00 times Medical 0.1 % daily. Branch ointment triamcinolo 2015-04 Yes [id number] Apply to Univers ne 2-08 area(s) 2 ity of acetonide 00:00: (two) [place] (KENALOG) 00 times Medical 0.1 % daily. Branch ointment triamcinolo 2015-04 Yes [id number] Apply to Univers ne 2-08 area(s) 2 ity of acetonide 00:00: (two) [place] (KENALOG) 00 times Medical 0.1 % daily. Branch ointment triamcinolo 2015-04 Yes [id number] Apply to Univers ne 2-08 area(s) 2 ity of acetonide 00:00: (two) [place] (KENALOG) 00 times Medical 0.1 % daily. Branch ointment triamcinolo 2015-04 Yes [id number] Apply to Univers ne 2-08 area(s) 2 ity of acetonide 00:00: (two) [place] (KENALOG) 00 times Medical 0.1 % daily. Branch ointment triamcinolo 2015-04 Yes [id number] Apply to Univers ne 2-08 area(s) 2 ity of acetonide 00:00: (two) [place] (KENALOG) 00 times Medical 0.1 % daily. Branch ointment triamcinolo 2015-04 Yes [id number] Apply to Univers ne 2-08 area(s) 2 ity of acetonide 00:00: (two) [place] (KENALOG) 00 times Medical 0.1 % daily. Branch ointment triamcinolo 2015-04 Yes [id number] Apply to Univers ne 2-08 area(s) 2 ity of acetonide 00:00: (two) [place] (KENALOG) 00 times Medical 0.1 % daily. Branch ointment triamcinolo 2015-04 Yes [id number] Apply to Univers ne 2-08 area(s) 2 ity of acetonide 00:00: (two) [place] (KENALOG) 00 times Medical 0.1 % daily. Branch ointment triamcinolo 2015-04 Yes [id number] Apply to Univers ne 2-08 area(s) 2 ity of acetonide 00:00: (two) [place] (KENALOG) 00 times Medical 0.1 % daily. Branch ointment triamcinolo 2015-04 Yes [id number] Apply to Univers ne 2-08 area(s) 2 ity of acetonide 00:00: (two) [place] (KENALOG) 00 times Medical 0.1 % daily. Branch ointment triamcinolo 2015-04 Yes [id number] Apply to Univers ne 2-08 area(s) 2 ity of acetonide 00:00: (two) [place] (KENALOG) 00 times Medical 0.1 % daily. Branch ointment triamcinolo 2015-04 Yes [id number] Apply to Univers ne 2-08 area(s) 2 ity of acetonide 00:00: (two) [place] (KENALOG) 00 times Medical 0.1 % daily. Branch ointment triamcinolo 2015-04 Yes [id number] Apply to Univers ne 2-08 area(s) 2 ity of acetonide 00:00: (two) [place] (KENALOG) 00 times Medical 0.1 % daily. Branch ointment triamcinolo 2015-04 Yes [id number] Apply to Univers ne 2-08 area(s) 2 ity of acetonide 00:00: (two) [place] (KENALOG) 00 times Medical 0.1 % daily. Branch ointment triamcinolo 2015-04 Yes [id number] Apply to Univers ne 2-08 area(s) 2 ity of acetonide 00:00: (two) [place] (KENALOG) 00 times Medical 0.1 % daily. Branch ointment triamcinolo 2015-04 Yes [id number] Apply to Univers ne 2-08 area(s) 2 ity of acetonide 00:00: (two) [place] (KENALOG) 00 times Medical 0.1 % daily. Branch ointment triamcinolo 2015-04 Yes [id number] Apply to Univers ne 2-08 area(s) 2 ity of acetonide 00:00: (two) [place] (KENALOG) 00 times Medical 0.1 % daily. Branch ointment triamcinolo 2015-04 Yes [id number] Apply to Univers ne 2-08 area(s) 2 ity of acetonide 00:00: (two) [place] (KENALOG) 00 times Medical 0.1 % daily. Branch ointment triamcinolo 2015-04 Yes [id number] Apply to Univers ne 2-08 area(s) 2 ity of acetonide 00:00: (two) [place] (KENALOG) 00 times Medical 0.1 % daily. Branch ointment triamcinolo 2015-04 Yes [id number] Apply to [facility] 2-08 area(s) 2 ity of acetonide 00:00: (two) [place] (KENALOG) 00 times Medical 0.1 % daily. Branch ointment triamcinolo 2015-04 Yes [id number] Apply to [facility] 2-08 area(s) 2 ity of acetonide 00:00: (two) [place] (KENALOG) 00 times Medical 0.1 % daily. Branch ointment Vital Signs Vital Name Observation Time Observation Value Comments Source Systolic blood 2019-10-14 18:57:00 120 mm[Hg] Univer sity of pressure [facility] Diastolic blood 2019-10-14 18:57:00 53 mm[Hg] Unive rsity of [facility] Heart rate 2019-10-14 18:57:00 80 /min Univers ty [facility] Body temperature 2019-10-14 18:57:00 37 Sravanthi [facility] rate 2019-10-14 18:57:00 20 /min [facility] Body height 2019-10-14 18:57:00 172.7 cm [facility] ty [facility] Body weight 2019-10-14 18:57:00 116.574 kg [facility] BMI 2019-10-14 18:57:00 39.08 kg/m2 [facility] Oxygen saturation in 2019-10-14 18:57:00 98 /min University of Arterial blood by [facility] Pulse oximetry Branch Heart rate 2019-09-26 18:00:00 71 /[facility] rate 2019-09-26 18:00:00 16 /min [facility] Oxygen saturation in 2019-09-26 18:00:00 95 /min University of Arterial blood by [facility] Pulse oximetry Branch Systolic blood 2019-09-26 17:55:00 129 mm[Hg] Univer sity of [facility] Diastolic blood 2019-09-26 17:55:00 73 mm[Hg] Unive rsity of [facility] Body temperature 2019-09-26 17:12:00 36.78 Sravanthi [facility] Body height 2019-09-25 15:02:00 182.9 cm Universi ty [facility] [place] Body weight 2019-09-25 15:02:00 115.[address] of [facility] BMI 2019-09-25 15:02:00 34.58 kg/m2 Universi ty of [facility] Respiratory rate 2019-09-26 17:08:00 17 /min Univ ersity of [facility] Systolic blood 2019-09-11 14:56:00 121 mm[Hg] Univer sity of pressure [facility] Branch Diastolic blood 2019-09-11 14:56:00 75 mm[Hg] Unive rsity of pressure [facility] Branch Heart rate 2019-09-11 14:56:00 80 /min Universi ty of [facility] Body temperature 2019-09-11 14:56:00 35.89 Sravanthi Univ ersity of [facility] Respiratory rate 2019-09-11 14:56:00 20 /min Univ ersity of [facility] Body height 2019-09-11 14:56:00 172.7 cm Universi ty of [facility] Body weight 2019-09-11 14:56:00 117[address] [facility] Branch BMI 2019-09-11 14:56:00 39.29 kg/m2 Universi ty of [facility] Oxygen saturation in 2019-09-11 14:56:00 98 /min University of Arterial blood by [facility] Pulse oximetry Branch Systolic blood 2019-05-27 21:11:00 114 mm[Hg] Univer sity of pressure [facility] Diastolic blood 2019-05-27 21:11:00 72 mm[Hg] Unive rsity of pressure [facility] Heart rate 2019-05-27 21:11:00 75 /min Universi ty of [facility] Body weight 2019-05-27 21:11:[address] [facility] Branch BMI 2019-05-27 21:11:00 35.40 kg/m2 Universi ty of [facility] Systolic blood 2019-05-09 16:17:00 114 mm[Hg] Univer sity of pressure [facility] Branch Diastolic blood 2019-05-09 16:17:00 60 mm[Hg] Unive rsity of pressure [facility] Heart rate 2019-05-09 16:17:00 74 /min Universi ty of [facility] Body temperature 2019-05-09 16:17:00 36.89 [facility] Respiratory rate 2019-05-09 16:17:00 18 /[facility] Body height 2019-05-09 16:17:00 182.9 cm [facility] Body weight 2019-05-09 16:17:00 119.75 kg [facility] BMI 2019-05-09 16:17:00 35.80 kg/m2 [facility] Procedures Procedure Date / Time Performing Clinician Source Performed COLONOSCOPY (ENDO) 2019-09-26 15:47:32 Horacio Sahu [facility] POCT GLUCOSE(AGE 2019-09-26 14:42:00 Manny Cooper [facility] >30DAYS) [facility] ASSIGNMENT OF BENEFITS 2019-09-25 16:39:37 Doctor Unassigned, No [facility] Name [facility] DISCLOSURE AND CONSENT, 2019-09-11 05:01:00 Doctor Unassigned, N o [facility] MEDICAL AND SURGICAL Name Medical [facility] PROCEDURES Encounters Start End Encounter Admission Attending Care Care Encounter Source Date/Time Date/Time Type Type Clinicians Facility Department ID 2021-02-17 Outpatient R ROLANDO [facility] [id number] Univers 22:59:00 DOROTHY dubon [facility] 2020-07-27 2020-07-27 [facility] 1.2.840.114 [id number] Univers 00:00:00 00:00:00 [facility] [id number] it y of [place] 4.2.7.2.686 [place] Professio [phone] [address] One 2020-07-23 2020-07-23 [facility] 1.2.840.114 [id number] Univers 00:00:00 00:00:00 [facility] [id number] it y of [place] [id number] [place] Profess[place] [phone] [address] One 2020-07-20 2020-07-20 [facility] 1.2.840.114 [id number] Univers 00:00:00 00:00:00 [facility] [id number] it y of [place] [id number] [place] Professio [phone] Mi dical nal 044 [facility] One 2020-07-20 2020-07-[address] [facility] 1.2.840.114 [id number] Univers 00:00:00 00:00:00 [facility] [id number] it y of Surgical [id number] [place] Specialti [phone] Mi dical es 198 [facility] 2020-07-14 2020-07-[address] [facility] 1.2.840.114 [id number] Univers 00:00:00 00:00:00 [facility] [id number] it y of Surgical [id number] [place] Special[place] [phone] Mi dical es 198 [facility] 2020-06-28 2020-06-28 [place] [facility] 1.2.840.114 [id number] Univers 00:00:00 00:00:00 [facility] [id number] it y of [place] [id number] [place] Professio [phone] Mi dical nal 044 [facility] One 2020-06-08 2020-06-[address] [facility] 1.2.840.114 [id number] Univers 00:00:00 00:00:00 [facility] 350.1.13.10 it y of Surgical [id number] [place] Special[place] [phone] Mi dical es 198 [facility] 2020-05-04 2020-05-[address] [facility] 1.2.840.114 [id number] Univers 00:00:00 00:00:00 [facility] 350.1.13.10 it y of Surgical [id number] [place] Special[place] [phone] Mi dical es 198 [facility] 2020-05-03 2020-05-03 Outpatient Evans MARSHALL [facility] [id number] Univers 10:30:00 10:30:00 DOROTHY [id number] ity of [facility] 2020-04-01 2020-04-01 [facility] 1.2.840.114 [id number] Univers 00:00:00 00:00:00 [facility] 350.1.13.10 it y of Surgical [id number] [place] Special[place] [phone] Mi dical es 198 [facility] 2020-03-08 2020-03-08 [facility] 1.2.840.114 [id number] Univers 00:00:00 00:00:00 [facility] 350.1.13.10 it y of Surgical 4.2.7.2.686 [place] Special[place] [phone] Mi dical es 198 [facility] 2020-03-08 2020-03-08 [facility]ani [facility] [id number] Univers 00:00:00 00:00:00 Dorothy [place] 350.1.13.10 i ty [place].2.[place] [phone] Mi dical nal 377 [facility] 2020-02-02 2020-02-02 [facility] 1.2.840.114 [id number] Univers 00:00:00 00:00:00 Solo S Health 350.1.13.10 it y of Surgical 4.2.7.2.686 [place] Special[place] [phone] Mi dical es 198 [facility] 2019-12-31 2019-12-31 [facility] 1.2.840.114 [id number] Univers 00:00:00 00:00:00 Solo S Health 350.1.13.10 it y of Surgical 4.2.7.2.686 [place] Special[place] [phone] Mi dical es 198 [facility] 2019-12-15 2019-12-15 Chani [facility] 1.2.814.390 [id number] Univers 00:00:00 00:00:00 Dorothy [place] 350.1.13.10 i ty [place].2.[place] [phone] Mi dical nal 377 [facility] 2019-11-30 2019-11-30 Refgodfrey [facility] 1.2.840.114 [id number] Univers 00:00:00 00:00:00 [facility] 350.1.13.10 it y of Surgical 4.2.7.2.686 [place] Special[place] [phone] Mi dical es 198 [facility] 2019-11-25 2019-11-25 [address] [facility] [id number] Univers 13:30:00 13:30:00 DOROTHY [id number] ity [facility] 2019-11-25 2019-11-25 [address] [facility] [id number] Univers 13:30:00 13:30:00 [facility] 2019-10-27 2019-10-27 [facility] 1.2.840.114 [id number] Univers 00:00:00 00:00:00 [facility] 350.1.13.10 it y of Surgical 4.2.7.2.686 [place] Special[place] [phone] Mi dical es 198 [facility] 2019-10-27 2019-10-27 Refgodfrey [facility] 1.2.103.758 [id number] Univers 00:00:00 00:00:00 Dorothy [place] 350.1.13.10 i ty [place]2.[place] [phone] Mi dical nal [address] [place] [address] 2019-10-18 2019-10-18 Outpatient R [facility] [id number] Univers 12:00:00 12:00:00 [id number] ity of [facility] 2019-10-18 2019-10-18 Outpatient R [facility] [id number] Univers 12:00:00 12:00:00 ity of [facility] 2019-10-15 2019-10-15 Telephone [facility] 1.2.840.114 [id number] Univers 00:00:00 00:00:00 [facility] 350.1.13.10 it y of [place] 4.2.7.2.686 [place] Profess[place] [phone] Mi dical nal 044 [place] [facility] One 2019-10-14 2019-10-14 Office Rolando [facility] [id number] Univers 13:47:59 14:30:45 Visit Dorothy Ni 350.1.13.10 i ty [place]2.7.2.[place] [phone] Mi dical nal 377 [facility] 2019-10-14 2019-10-14 Outpatient R ROLANDO [facility] [id number] Univers 14:15:00 14:15:00 DOROTHY jagdish [facility] 2019-09-26 2019-09-26 Hospital Rolando [facility] 1.2.840.114 [id number] Univers 09:31:22 13:10:00 Encounter Dorothy Ni 350.1.13.10 ity [place].2.[place] [id number] [facility] 071 [place] 2019-09-26 2019-09-26 Anesthesia Manny Cooper [facility] 1.2.840.11 [id number] Univers 10:58:00 12:09:00 Jon Mcbride 350.1.13.10 ity [place] 4[place]2.7.2.[place] [phone] [facility] 020 [place] 2019-09-25 2019-09-25 Laboratory Only, Adc Test [facility] 1.2.840. 114 [id number] Univers 11:38:56 11:53:56 Only Dorothy [place] 350.1.13.10 ity [place] 4.2.7.2.[place] [phone] Mi dical nal 353 [facility] 2019-09-25 2019-09-25 Outpatient R ROLANDO [facility] [id number] Univers 11:30:00 11:30:00 DOROTHY jagdish [facility] 2019-09-25 2019-09-25 Outpatient R [facility] [id number] Univers 09:15:00 09:15:00 [id number] jagdish [facility] 2019-09-25 2019-09-25 Orders Doctor CARROLL 1.2.840.114 [id number] Univers 00:00:00 00:00:00 Only Unassigned, CAROLIN 350.1.13.10 ity of [facility] 4.2.7.2.686 [place] [phone] [address] 2019-09-25 2019-09-25 Telephone [facility] 1.2.840.114 [id number] Univers 00:00:00 00:00:00 Dorothy Ni 350.1.13.10 [place]2.[place] [phone] Me dical nal 353 [facility] 2019-09-25 2019-09-25 Refgodfrey Saravia [facility] 1.2.840.114 [id number] Univers 00:00:00 00:00:00 [facility] 350.1.13.10 it y of Surgical 4.2.7.2.686 [place] Specialti [phone] Mi dical es 198 [place] [facility] 2019-09-11 2019-09-11 Outpatient R ROLANDO [facility] [id number] Univers 15:15:00 15:15:00 DOROTHY [id number] [facility] 2019-09-11 2019-09-[address] [id number] Univers 15:15:00 15:15:00 DOROTHY [facility] 2019-09-11 2019-09-11 [facility] [id number] Univers 09:45:33 12:07:43 Visit Dorothy Ni [id number] i [id number] [phone] Mi dical nal 377 [facility] 2019-09-11 2019-09-11 Prep For Mago [facility] [id number] Univers 00:00:00 00:00:00 Surgery Rosetta Ni [id number] [id number] [phone] Me dical nal 377 [facility] 2019-09-11 2019-09-11 [facility]de [facility] [id number] Univers 00:00:00 00:00:00 Management Rosetta Ni [id number] [id number] [phone] Mi dical nal 377 [facility] 2019-08-17 2019-08-17 [facility] [id number] Univers 00:00:00 00:00:00 Solo [facility] [id number] it y of Surgical [id number] [place] [phone] Mi dical es 198 [facility] 2019-07-15 2019-07-15 [facility] [id number] Univers 14:10:53 14:40:53 ne Visit Dorothy [place] [id number] [id number] [phone] Mi dical nal [address] [place] [address] 2019-07-15 2019-07-[address] [id number] Univers 13:30:00 13:30:00 DOROTHY itvani [facility] 2019-07-07 2019-07-07 [facility] [id number] Univers 00:00:00 00:00:00 Solo S Health [id number] it y of Surgical [id number] [place] [phone] Mi dical es 198 [facility] 2019-06-09 2019-06-09 Telephone Luis [facility] [id number] Univers 00:00:00 00:00:00 [facility] [id number] it y of [place] [id number] [place] [phone] Mi dical nal 044 [facility] 2019-06-05 2019-06-05 [facility] [id number] Univers 00:00:00 00:00:00 Solo S Health [id number] it y of Surgical [id number] [place] [phone] Mi dical es 198 [facility] 2019-05-27 2019-05-27 Office [facility] [id number] Univers 15:03:05 15:18:05 Visit [facility] [id number] it y of [place] [id number] [place] [phone] Mi dical nal 044 [facility] 2019-05-09 2019-05-09 Office [facility] [id number] Univers 10:07:10 10:22:10 Visit [facility] [id number] it y of [place] [id number] [place] [phone] Mi dical nal 044 [facility] 2019-05-07 2019-05-[address] [facility] [id number] Univers 00:00:00 00:00:00 [facility] [id number] it y of Surgical [id number] [place] [phone] Mi dical es 198 [facility] Results Test Description Test Time Test Comments Results Result Comments Source POCT Glucose 2019-09-26 14:42:00 Test Item Value Reference Range Interpretation Comme nts POCT Glu (age>30days) (test code = 3342) 167 mg/dL 70-110 A Lab Interpretation (test code = 02322-1) Abnormal [facility]
[2022-01-11 20:21] LABS: Absolute Lymphocytes (CBC) 1.2 K/uL (0.7-4.9); MCV 97.8 fL (80-100); MPV 7.7 fL (7.6-11.3); RBC Red Blood Cell Count 4.34 M/uL (4.33-5.43)
[2022-01-11 20:38] LABS: Potassium 4.5 mmol/L (3.5-5.1); Troponin High Sensitivity 7.1 pg/mL (<58.9)
--- NOTE | 2022-01-11 20:42 | RAD REPORT ---
EXAM DESCRIPTION: RAD - Chest Single View - 01/11/2022 8:33 pm CLINICAL HISTORY: CHEST PAIN Chest pain. COMPARISON: No comparisons FINDINGS: Portable technique limits examination quality. The lungs are grossly clear. The heart is normal in size. No displaced fractures. IMPRESSION: No acute intrathoracic process suspected.
[2022-01-11 21:52] LABS: Hematocrit 41.9 % (39.6-49.0)
--- NOTE | 2022-01-12 00:34 | ER ---
Nurse's Notes [facility] Name: Gold Sales Age: 71 yrs Sex: Male : 1950 Arrival Date: 01/11/2022 Time: 19:51 Bed 16 Private MD: Diagnosis: Chest pain, unspecified;Essential (primary) hypertension;Hyperglycemia, unspecified Presentation: 01/11 19:53 Chief complaint: EMS states: Pt called us for chest pain. Reports pain originated in jb4 his epigastric area. Reports vomiting once after eating around 2pm and thinks it is his gastric reflux acting up. Coronavirus screen: At this time, the client does not indicate any symptoms associated with coronavirus-19. Ebola Screen: No symptoms or risks identified at this time. Initial Sepsis Screen: Does the patient meet any 2 criteria? No. Patient's initial sepsis screen is negative. Does the patient have a suspected source of infection? No. Patient's initial sepsis screen is negative. Risk Assessment: Do you want to hurt yourself or someone else? Patient reports no desire to harm self or others. Onset of symptoms was January 11, 2022. Transition of care: patient was not received from another setting of care. 19:53 Method Of Arrival: EMS: [place] [address] 19:53 Acuity: MAYURI 3 jb4 Triage Assessment: 01/12 01:53 General: Appears in no apparent distress. Behavior is calm, cooperative, appropriate tw5 for age. Historical: - Allergies: 01/11 19:55 No Known Allergies; jb4 - Home Meds: 19:55 Unable to obtain [Active]; jb4 - PMHx: 19:55 Diabetes mellitus; hypertension; jb4 - PSHx: 19:55 Thyroidectomy; jb4 - Immunization history:: Adult Immunizations up to date. - Social history:: Smoking status: unknown. Screenin:01 Abuse screen: Denies threats or abuse. Denies injuries from another. Nutritional tw5 screening: No deficits noted. Tuberculosis screening: No symptoms or risk factors identified. Fall Risk IV access (20 points). Assessment: 20:01 General: Reports "I have an aneurysm , and I was scared that maybe it was busting. I tw5 was feeling nauseous and wanted to throw up, there was so much pressure in my stomach and chest I thought I was going to " reports "He had the dry heaves". Pain: Denies pain. Pain: Pain currently is 0 out of 10 on a pain scale. at worst was 20 out of 10 on a pain scale. Neuro: Level of Consciousness is awake, alert, obeys commands, Oriented to person, place, time, situation. Cardiovascular: Rhythm is sinus rhythm. Respiratory: Airway is patent Trachea midline Respiratory effort is even, unlabored. 21:00 Reassessment: Patient appears in no apparent distress at this time. Patient and/or jb4 family updated on plan of care and expected duration. Pain level reassessed. Patient is alert, oriented x 3, equal unlabored respirations, skin warm/dry/pink. 22:00 Reassessment: Patient appears in no apparent distress at this time. Patient and/or jb4 family updated on plan of care and expected duration. Pain level reassessed. Patient is alert, oriented x 3, equal unlabored respirations, skin warm/dry/pink. 23:00 Reassessment: Patient appears in no apparent distress at this time. Patient and/or jb4 family updated on plan of care and expected duration. Pain level reassessed. Patient is alert, oriented x 3, equal unlabored respirations, skin warm/dry/pink. 01/12 00:00 Reassessment: Patient appears in no apparent distress at this time. Patient and/or jb4 family updated on plan of care and expected duration. Pain level reassessed. Patient is alert, oriented x 3, equal unlabored respirations, skin warm/dry/pink. 01:00 Reassessment: Patient appears in no apparent distress at this time. Patient and/or jb4 family updated on plan of care and expected duration. Pain level reassessed. Patient is alert, oriented x 3, equal unlabored respirations, skin warm/dry/pink. 01:51 General: [phone]. tw5 16:45 General: Pt discharged, awaiting transportation. kb3 Vital Signs: 01/11 19:53 BP 114 / 72; Pulse 85; Resp 17; Temp 98.9(O); Pulse Ox 97% on R/A; Weight 112 kg (M); jb4 Height 6 ft. 0 in. (182.88 cm); Pain 0/10; 20:01 BP 113 / 69; Pulse 78; Resp 18; Pulse Ox 97% on R/A; Pain 0/10; tw5 21:00 BP 108 / 66; Pulse 73; Resp 14; Pulse Ox 96% on R/A; jb4 22:00 BP 115 / 73; Pulse 64; Resp 18; Pulse Ox 94% on R/A; jb4 23:00 BP 104 / 75; Pulse 64; Resp 17; Pulse Ox 94% on R/A; jb4 01/12 00:00 BP 111 / 77; Pulse 69; Resp 17; Pulse Ox 97% on R/A; jb4 01:15 BP 108 / 75; Pulse 59; Resp 16; Pulse Ox 94% on R/A; jb4 01/11 19:53 Body Mass Index 33.49 (112.00 kg, 182.88 cm) jb4 ED Course: 01/11 19:51 Patient arrived in ED. tw5 19:53 Horacio Viera, RN is Primary Nurse. jb4 19:54 Triage completed. jb4 19:55 Arm band placed on right wrist. jb4 19:58 Mahendra Romero DO is Attending Physician. ms3 20:01 Awaiting lab results. tw5 20:01 Patient has correct armband on for positive identification. Placed in gown. Bed in low tw5 position. Call light in reach. Side rails up X 1. Client placed on continuous cardiac and pulse oximetry monitoring. NIBP monitoring applied. Door closed. Noise minimized. Moved to private room. 20:01 Initial lab(s) drawn, by me, sent to lab. EKG done, by ED staff, reviewed by Mahendra twBulmaro Romero DO. Inserted saline lock: 20 gauge in right antecubital area, using aseptic technique. Blood collected. 20:06 Basic Metabolic Panel Sent. tw5 20:06 CBC with Diff Sent. tw5 20:06 Troponin HS Sent. tw5 01/12 00:33 Jose Graff is Hospitalizing Provider. ms3 00:51 CT Aorta for Dissection In Process Unspecified. EDMS 01:36 No provider procedures requiring assistance completed. Patient admitted, IV remains in jb4 place. Administered Medications: 04:43 Drug: Aspirin Chewable Tablet 324 mg Route: PO; vc1 04:43 Follow up: Response: Medication administered at discharge.; Other; Other; administered vc1 then swictched charting to [facility] Medication: 01/11 20:01 VIS not applicable for this client. tw5 Outcome: 01/12 00:33 Decision to Hospitalize by Provider. ms3 01:36 Admitted to ER Hold. Please see [facility] for further documentation. jb4 01:36 Condition: stable 01:36 Discharge instructions given to patient, family, Instructed on the need for admit, Demonstrated understanding of instructions. 17:55 Patient left the ED. em1 Signatures: Dispatcher [employer] Jluis Le em1 Horacio Viera, RN RN jb4 Mahendra Romero, DO ms3 Ron Sury tw5 Karen Harper RN RN vc1 Rajni Hoover, RN RN kb3
--- NOTE | 2022-01-12 00:35 | EDPHYS ---
Physician Documentation [facility] Name: Gold Sales Age: 71 yrs Sex: Male : 1950 Arrival Date: 01/11/2022 Time: 19:51 Bed 16 Private MD: ED Physician Mahendra Romero HPI: 01/11 20:05 This 71 yrs old Male presents to ER via EMS with complaints of chest pain. ms3 20:05 71-year-old male with past medical history of diabetes, hypertension, aortic aneurysm ms3 presents for chest pain that began just prior to arrival. Patient states the pain is resolved at this time. Patient states the pain felt like cramping in the epigastric region. Patient denied alleviating or inciting factors. Patient denies nausea vomiting, fevers or chills.. Historical: - Allergies: 19:55 No Known Allergies; jb4 - Home Meds: 19:55 Unable to obtain [Active]; jb4 - PMHx: 19:55 Diabetes mellitus; hypertension; jb4 - PSHx: 19:55 Thyroidectomy; jb4 - Immunization history:: Adult Immunizations up to date. - Social history:: Smoking status: unknown. ROS: 20:05 Constitutional: Negative for fever, and chills. ENT: Negative for injury, pain, and ms3 discharge, Neck: Negative for injury, pain, and swelling, Respiratory: Negative for shortness of breath, cough, wheezing, and pleuritic chest pain, Abdomen/GI: Negative for abdominal pain, nausea, vomiting, diarrhea, and constipation. 20:05 Cardiovascular: Positive for chest pain. 20:05 All other systems are negative. Exam: 19:55 ECG was reviewed by the Attending Physician. ms3 20:05 Constitutional: This is a well developed, well nourished patient who is awake, alert, ms3 and in no acute distress. Head/Face: Normocephalic, atraumatic. Neck: Trachea midline, no cervical lymphadenopathy. Supple, full range of motion without nuchal rigidity, or vertebral point tenderness. No Meningismus. Chest/axilla: Normal chest wall appearance and motion. Nontender with no deformity. Cardiovascular: Regular rate and rhythm with a normal S1 and S2. No gallops, murmurs, or rubs. Normal PMI, no JVD. No pulse deficits. Respiratory: Lungs have equal breath sounds bilaterally, clear to auscultation and percussion. No rales, rhonchi or wheezes noted. No increased work of breathing, no retractions or nasal flaring. Abdomen/GI: Soft, non-tender, with normal bowel sounds. No distension or tympany. No guarding or rebound. No evidence of tenderness throughout. Skin: Warm, dry with normal turgor. Normal color with no rashes, no lesions, and no evidence of cellulitis. MS/ Extremity: Pulses equal, no cyanosis. Neurovascular intact. Full, normal range of motion. Psych: Awake, alert, with orientation to person, place and time. Behavior, mood, and affect are within normal limits. Vital Signs: 19:53 BP 114 / 72; Pulse 85; Resp 17; Temp 98.9(O); Pulse Ox 97% on R/A; Weight 112 kg (M); jb4 Height 6 ft. 0 in. (182.88 cm); Pain 0/10; 20:01 BP 113 / 69; Pulse 78; Resp 18; Pulse Ox 97% on R/A; Pain 0/10; tw5 21:00 BP 108 / 66; Pulse 73; Resp 14; Pulse Ox 96% on R/A; jb4 22:00 BP 115 / 73; Pulse 64; Resp 18; Pulse Ox 94% on R/A; jb4 23:00 BP 104 / 75; Pulse 64; Resp 17; Pulse Ox 94% on R/A; 4 01/12 00:00 BP 111 / 77; Pulse 69; Resp 17; Pulse Ox 97% on R/A; jb4 01:15 BP 108 / 75; Pulse 59; Resp 16; Pulse Ox 94% on R/A; jb4 01/11 19:53 Body Mass Index 33.49 (112.00 kg, 182.88 cm) [facility] MDM: 01/11 20:04 Patient medically screened. ms3 20:05 Differential diagnosis: abnormal EKG, acute myocardial infarction, coronary artery ms3 disease pneumonia, pneumothorax, Dissection. 01/12 02:39 HEART Score: History: Slightly Suspicious (0), ECG: Normal (0), Age: > or = 65 years ms3 (2), Risk Factors: > or = 3 Risk factors for atherosclerotic disease (2), [Hypertension] [DM] [Active Smoker] [Obesity] Troponin: < or = 1 x Normal Limit (0), Total Score = 4. 03:14 The patient was given aspirin in the Emergency Department. Data reviewed: vital signs, ms3 nurses notes, lab test result(s), EKG, radiologic studies, and as a result, I will admit patient. Counseling: I had a detailed discussion with the patient and/or guardian regarding: the historical points, exam findings, and any diagnostic results supporting the discharge/admit diagnosis, lab results, radiology results, the need for further work-up and treatment in the hospital. ED course: Discussed case with LINDA Mtz and she accepts patient on behalf of of . Discussed plan for observation with patient and his . They understand and agree with plan.. 01/11 19:55 Order name: Basic Metabolic Panel [facility] 01/11 19:55 Order name: CBC with Diff [facility] 01/11 19:55 Order name: Troponin HS [facility] 01/11 20:27 Order name: CBC with Automated Diff; Complete Time: 23:57 [facility] 01/11 20:42 Order name: Basic Metabolic Panel; Complete Time: 23:57 [facility] 01/11 20:42 Order name: Troponin High Sensitivity; Complete Time: 23:57 [facility] 01/12 00:40 Order name: SARS-COV-2 Antigen Rapid; Complete Time: 01:25 ok3 01/12 05:17 Order name: CBC with Automated Diff [facility] 01/12 05:38 Order name: Basic Metabolic Panel [facility] 01/12 05:38 Order name: Troponin High Sensitivity [facility] 01/12 05:38 Order name: Lipid Profile [facility] 01/12 05:38 Order name: Magnesium [facility] 01/12 05:38 Order name: Thyroid Stimulating Hormone [facility] 01/12 05:50 Order name: Hemoglobin A1c [facility] 01/11 19:55 Order name: XRAY Chest (1 view) [facility] 01/11 19:55 Order name: EKG; Complete Time: 19:57 [facility] 01/11 19:55 Order name: Cardiac monitoring; Complete Time: 20:05 [facility] 01/11 19:55 Order name: EKG - Nurse/Tech; Complete Time: 20:05 [facility] 01/11 19:55 Order name: IV Saline Lock; Complete Time: 20:05 [facility] 01/11 19:55 Order name: Labs collected and sent; Complete Time: 20:05 [facility] 01/11 19:55 Order name: O2 Per Protocol; Complete Time: 20:05 [facility] 01/11 19:55 Order name: O2 Sat Monitoring; Complete Time: 20:05 [facility] 01/11 20:44 Order name: RAD; Complete Time: 23:57 EDMS 01/11 23:59 Order name: CT Aorta for Dissection ms3 01/12 07:46 Order name: Glucose, Ancillary Testing EDMS 01/12 07:46 Order name: Glucose, Ancillary Testing EDMS 01/12 11:46 Order name: Glucose, Ancillary Testing EDMS EC/21 19:55 Rate is 85 beats/min. Rhythm is regular. Left axis deviation noted. WI interval is ms3 normal. Clinical impression: Sinus rhythm with incomplete RBBB, LAFB. Interpreted by me. Reviewed by me. Administered Medications: 01/12 04:43 Drug: Aspirin Chewable Tablet 324 mg Route: PO; vc1 04:43 Follow up: Response: Medication administered at discharge.; Other; Other; administered vc1 then swictched charting to [facility] Disposition Summary: 01/12/22 00:33 Hospitalization Ordered Hospitalization Status: Observation ms3 Provider: Jose Graff ms3 Condition: Stable ms3 Problem: new ms3 Symptoms: are unchanged ms3 Bed/Room Type: Standard ms3 Location: [facility] ER HOLD(01/12/22 00:39) eb1 Room Assignment: ERHOLD-(01/12/22 00:39) eb1 Diagnosis - Chest pain, unspecified ms3 - Essential (primary) hypertension ms3 - Hyperglycemia, unspecified ms3 Forms: - Medication Reconciliation Form ms3 - SBAR form ms3 Signatures: Dispatcher [employer] EDHoracio Cruz RN RN jb4 Petra Bee RN RN eb1 Mahendra Romero DO DO ms3 Karen Harper RN RN vc1 Merly Bryant PA-C PA-C sb4 Corrections: (The following items were deleted from the chart) 00:39 00:33 Telemetry/MedSurg (observation) ms3 eb1 00:39 00:33 ms3 eb1
[2022-01-12 01:09] LABS: SARS-CoV-2 Antigen Rapid Res Negative (Negative)
[2022-01-12 02:15] VITALS: BMI 33.5
--- NOTE | 2022-01-12 03:09 | P.HP ---
Certification for Inpatient Patient admitted to: Observation With expected LOS: <2 Midnights Patient will require the following post-hospital care: None Practitioner: I am a practitioner with admitting privileges, knowledge of patient current condition, hospital course, and medical plan of care. Services: Services provided to patient in accordance with Admission requirements found in Title 42 Section 412.3 of the Code of Federal Regulations Patient History Date of Service: 01/12/22 Reason for admission: Chest Pain History of Present Illness: Patient is a 71 year old male with type 2 diabetes, hypertension, tobacco abuse, and hypothyroidism who presented to the ED via EMS with complaints of chest pain. Patient reports that he has an aortic aneursym and was concerned that his pain was secondary to that, although he reports it feeling more GERD related. Vital signs stable upon arrival to ER. EKG without abnormalities. Troponin negative. Labs only significant for hyperglycemia. CT dissection protocol showed "No aortic aneurysm or dissection. No central pulmonary embolism. No acute abnormalities in the chest, abdomen, or pelvis. 1.9 x 1.4 cm indeterminate nodule in the left adrenal gland. Cholelithiasis." He was given 324 mg aspirin in ED. ED provider wishes to admit patient for observation for ACS rule out. Allergies meperidine [From Demerol] Allergy (Mild, Verified 01/12/22 02:10) Hives/Rash Home medications list reviewed: Yes - Past Medical/Surgical History Diabetic: Yes -: Type 2 Diabetes -: Hypertension -: Hypothyroidism -: Thyroidectomy Psychosocial/ Personal History: Patient is . - Family History Family History: Reviewed- Non-Contributory - Social History Smoking Status: Current every day smoker Alcohol use: No CD- Drugs: No Caffeine use: Yes Place of Residence: Home Review of Systems Cardiovascular: Chest Pain Gastrointestinal: Nausea Physical Examination - Physical Exam General: Alert, In no apparent distress HEENT: Atraumatic, PERRLA, EOMI, Sclerae nonicteric Neck: Supple, 2+ carotid pulse no bruit, No LAD, Without JVD or thyroid abnormality Respiratory: Clear to auscultation bilaterally, Normal air movement Cardiovascular: Regular rate/rhythm, Normal S1 S2 Gastrointestinal: Normal bowel sounds, No tenderness Musculoskeletal: No tenderness Integumentary: No rashes Neurological: Normal gait, Normal speech, Normal strength at 5/5 x4 extr, Normal tone, Normal affect - Studies Laboratory Data (last 24 hrs) 01/11/22 19:57: WBC 13.80 H, Hgb 14.9, Hct 41.9, Plt Count 304 01/11/22 19:57: Sodium 130 L, Potassium 4.5, BUN 21 H, Creatinine 1.14, Glucose 428 H* Assessment and Plan - Problems (Diagnosis) (1) Chest pain Current Visit: Yes Status: Acute Qualifiers: Chest pain type: unspecified Qualified Code(s): R07.9 - Chest pain, unspecified (2) Hypertension Current Visit: Yes Status: Chronic Qualifiers: Hypertension type: primary hypertension Qualified Code(s): I10 - Essential (primary) hypertension (3) Type 2 diabetes mellitus Current Visit: Yes Status: Chronic Qualifiers: Diabetes mellitus joint terminal attack controller insulin use: unspecified joint terminal attack controller insulin use status Diabetes mellitus complication status: with hyperglycemia Qualified Code(s): E11.65 - Type 2 diabetes mellitus with hyperglycemia (4) Tobacco abuse Current Visit: Yes Status: Chronic (5) Hypothyroidism Current Visit: Yes Status: Chronic Qualifiers: Hypothyroidism type: postoperative Qualified Code(s): E89.0 - Postprocedural hypothyroidism - Plan -Patient is admitted for observation -Cardiology consult -Echo ordered -Trend troponin -Monitor on telemetry -Tobacco cessation counseling -Aspirin and atorvastatin daily -Lipid panel, TSH, A1C -Monitor and replete electrolytes per protocol -Reconcile and continue home medications -Lovenox for VTE ppx -Full code Discharge Plan: Home Plan to discharge in: 24 Hours - Advance Directives Does patient have a Living Will: No Does patient have a Durable POA for Healthcare: No - Code Status/Comfort Care Code Status Assessed: Yes (Full) Critical Care: No Time Spent Managing Pts Care (In Minutes): 50
[2022-01-12] MEDS ORDERED: ONDANSETRON 4 MG/2 ML VIAL IV PRN (04:09)
[2022-01-12] MEDS ORDERED: ACETAMINOPHEN 500 MG TAB PO PRN (04:09)
[2022-01-12] MEDS ORDERED: ASPIRIN EC 81 MG TAB PO ONE ×2 (04:32→08:26)
[2022-01-12 05:16] LABS: Absolute Lymphocytes (CBC) 2.1 K/uL (0.7-4.9); Hematocrit 40.5 % (39.6-49.0); Lymphocytes % 21.7 % (15.3-44.8); MCV 96.8 fL (80-100); MPV 7.7 fL (7.6-11.3); RBC Red Blood Cell Count 4.19 M/uL (4.33-5.43)
[2022-01-12 05:38] LABS: Magnesium 2.3 mg/dL (1.8-2.4); Potassium 4.2 mmol/L (3.5-5.1); Thyroid Stimulating Hormone 3.11 uIU/mL (0.360-3.740); Troponin High Sensitivity 8.1 pg/mL (<58.9)
[2022-01-12] MEDS: INSULIN -REGULAR HUMAN 50 UNIT/0.5 ML ML SQ SCH ×2 (08:20→12:05)
[2022-01-12] MEDS ORDERED: INSULIN -REGULAR HUMAN 50 UNIT/0.5 ML ML ONE ×2 (08:27→12:12)
[2022-01-12] MEDS ORDERED: ENOXAPARIN 40 MG/0.4 ML SQ ONE (08:27)
[2022-01-12] MEDS ORDERED: ENOXAPARIN 40 MG/0.4 ML SQ SCH (09:00)
[2022-01-12] MEDS ORDERED: ASPIRIN EC 81 MG TAB PO SCH (09:00)
--- NOTE | 2022-01-12 12:14 | P.DS ---
Admission Date: 01/12/22 Discharge Date: 01/12/22 Disposition: ROUTINE DISCHARGE Discharge Condition: FAIR Reason for Admission: Chest Pain - Problems (1) Chest pain Status: Acute Qualifiers: Chest pain type: unspecified Qualified Code(s): R07.9 - Chest pain, unspecified (2) Hypertension Status: Chronic Qualifiers: Hypertension type: primary hypertension Qualified Code(s): I10 - Essential (primary) hypertension (3) Type 2 diabetes mellitus Status: Chronic Qualifiers: Diabetes mellitus ad terminal makeup operator insulin use: unspecified ad terminal makeup operator insulin use status Diabetes mellitus complication status: with hyperglycemia Qualified Code(s): E11.65 - Type 2 diabetes mellitus with hyperglycemia Brief History of Present Illness: Patient is a 71 year old male with type 2 diabetes, hypertension, tobacco abuse, and hypothyroidism who presented to the ED via EMS with complaints of chest pain. Patient reported that he has an aortic aneursym and was concerned that his pain was secondary to that, although he reports it feeling more GERD related. Vital signs stable upon arrival to ER. EKG without abnormalities. Troponin negative. Labs only significant for hyperglycemia. CT dissection protocol showed "No aortic aneurysm or dissection. No central pulmonary embolism. No acute abnormalities in the chest, abdomen, or pelvis. 1.9 x 1.4 cm indeterminate nodule in the left adrenal gland. Cholelithiasis." He was given 324 mg aspirin in ED. Patient placed under observation for ACS rule out. Hospital Course: Patient placed under observation on the medical floor. Troponin trended negative. Patient was chest pain-free during the hospital stay. Patient seen in consultation by cardiology. ACS ruled out. Patient chest pain considered noncardiac. His blood sugar readings were elevated, hemoglobin A1c 7.9. He is aware of his high blood sugar readings at home. He is on Victoza and metformin and his PCP does not want to make changes in his diabetes medications as long as his hemoglobin A1c is not very high. Patient informed to follow-up with his PCP for his blood sugar management. CT dissection done on presentation report incidental adrenal nodule. Patient has been informed to follow-up with his PCP for repeat CT scan in 3 to 6 months. Vital Signs/Physical Exam: Temp Pulse Resp BP Pulse Ox 98.3 F 64 14 107/73 96 01/12/22 07:37 01/12/22 07:37 01/12/22 07:37 01/12/22 07:37 01/12/22 07:37 General: Alert, In no apparent distress, Oriented x3 HEENT: Mucous membr. moist/pink Neck: JVD not distended Respiratory: Clear to auscultation bilaterally, Normal air movement Cardiovascular: No edema, Regular rate/rhythm, Normal S1 S2 Gastrointestinal: Soft and benign, Non-distended, No tenderness Musculoskeletal: No swelling Integumentary: No rashes Neurological: Normal strength at 5/5 x4 extr, Cranial nerves 3-12 intact Laboratory Data at Discharge: WBC 9.90 K/uL (4.3-10.9) 01/12/22 04:58 Hgb 14.9 g/dL (13.6-17.9) 01/12/22 04:58 Hct 40.5 % (39.6-49.0) 01/12/22 04:58 Plt Count 295 K/uL (152-406) 01/12/22 04:58 Sodium 133 mmol/L (136-145) L 01/12/22 04:58 Potassium 4.2 mmol/L (3.5-5.1) 01/12/22 04:58 BUN 19 mg/dL (7-18) H 01/12/22 04:58 Creatinine 1.04 mg/dL (0.55-1.3) 01/12/22 04:58 Glucose 287 mg/dL (74-106) H 01/12/22 04:58 Magnesium 2.3 mg/dL (1.8-2.4) 01/12/22 04:58 Triglycerides 204 mg/dL (<150) H 01/12/22 04:58 Cholesterol 141 mg/dL (<200) 01/12/22 04:58 HDL Cholesterol 26 mg/dL (40-60) L 01/12/22 04:58 Cholesterol/HDL Ratio 5.42 01/12/22 04:58 Home Medications: Aspirin [Aspirin EC] 81 mg PO DAILY #30 tab 01/12/22 Atorvastatin Calcium [Lipitor] 20 mg PO BEDTIME #30 tab 01/12/22 Pantoprazole [Protonix Tab] 40 mg PO DAILY #30 tab 01/12/22 New Medications: Aspirin [Aspirin EC] 81 mg PO DAILY #30 tab Atorvastatin Calcium [Lipitor] 20 mg PO BEDTIME #30 tab Pantoprazole [Protonix Tab] 40 mg PO DAILY #30 tab Diet: ADA Activity: Ad keith Followup: Unknown,U [Primary Care Provider] - 1-2 Weeks
--- NOTE | 2022-01-12 12:34 | CON ---
Date of Consultation: 01/12/2022 Reason For Consultation: Chest pain. History Of Present Illness: Mr. Sales is 71. Has a history of diabetes, hypertension, abdominal aor tic aneurysm, had mid-epigastric chest pain, heartburn, nausea, vomiting, glucose of 287, otherwise n ormal EKG, normal chest x-ray, normal troponin. Denied PND, orthopnea, pedal edema, palpitation, or syncope. Past Medical History: Includes diabetes, hypertension, and AAA. Allergies: INCLUDE DEMEROL. Review of Systems: Negative. Social History: Negative. Family History: Noncontributory. Physical Examination: Vital Signs: Stable, afebrile. HEENT: Negative. Neck: Supple with no bruit. Chest: Clear. Cardiac: Revealed a regular rhythm and rate. No murmurs, gallops, or rubs. Abdomen: Benign. Extremities: Revealed no clubbing, cyanosis, or edema. Diagnostic Data: Normal. Medications: Listed by admitting physician. Impression And Plan: The patient with diabetes, hypertension, AAA, very atypical chest pain. This i s definitely gastroesophageal reflux or gastritis in nature. The patient has nausea and vomiting. H e has a normal EKG, x-ray, and troponin. I am comfortable with him going home whenever it is okay wi th Dr. Graff. He had an echocardiogram pending today. He should have an outpatient MPI. Also he said he has had those before by Dr. Estrada and they were normal. He will follow up with Dr. Estrada at his convenience. Presently, he is on insulin, Lovenox, aspirin, and Lipitor. I agree with his p resent regimen. NB/MODL Voice ID: [id number] Report ID: [id number]
--- NOTE | 2022-01-12 13:38 | EKG ---
Test Date: 2022-01-11 Test Time: 19:55:21 Director Of Outreach: MEASUREMENT RESULTS: Intervals: Rate: 85 TN: 170 QRSD: 100 QT: 376 QTc: 447 [place]: P: 55 TN: 170 QRS: -56 T: 28 INTERPRETIVE STATEMENTS: Normal sinus rhythm Incomplete right bundle branch block Left anterior fascicular block Abnormal ECG No previous ECG available for comparison Electronically Signed On 01-12-22 13:36:36 CDT by Clayton Hampton
--- NOTE | 2022-01-12 15:14 | RAD REPORT ---
EXAM DESCRIPTION: CT Angiography Chest, Abdomen and Pelvis With Intravenous Contrast CLINICAL HISTORY: The patient is 71 years old and is Male; History of aortic aneurysm, chest pain TECHNIQUE: Axial computed tomographic angiography images of the chest, abdomen and pelvis with intra venous contrast. Sagittal and coronal reformatted images were created and reviewed. This CT exam was performed using one or more of the following dose reduction techniques: automated exposure cont rol, adjustment of the mA and/or kV according to patient size, and/or use of iterative reconstruction technique. MIP reconstructed images were created and reviewed. COMPARISON: No relevant prior studies available. FINDINGS: VASCULATURE: AORTA: No acute findings. No aortic aneurysm. No dissection. PULMONARY ARTERIES: No thoracic or abdominal aortic aneurysm or dissection. No central pulmonary em bolism. GREAT VESSELS OF AORTIC ARCH: No acute findings. No dissection. No arterial occlusion or signif icant stenosis. CELIAC TRUNK AND MESENTERIC ARTERIES: No acute findings. No occlusion or significant stenosis. RENAL ARTERIES: No acute findings. No occlusion or significant stenosis. ILIAC ARTERIES: No acute findings. No occlusion or significant stenosis. CHEST: LUNGS: Conventional pulmonary venous return. PLEURAL SPACE: Unremarkable. No significant effusion. No pneumothorax. HEART: Multivessel coronary artery calcifications, greatest in the LAD. No significant pericardial effusion. ABDOMEN: LIVER: Unremarkable. No mass. GALLBLADDER AND BILE DUCTS: Cholelithiasis. No ductal dilation. PANCREAS: Unremarkable. No ductal dilation. No mass. SPLEEN: Unremarkable. No splenomegaly. ADRENALS: 1.9 x 1.4 cm indeterminate nodule in the left adrenal gland. Right adrenal gland is wit hin normal limits. KIDNEYS AND URETERS: Unremarkable. No hydronephrosis. No solid mass. STOMACH AND BOWEL: Small proximal duodenal diverticulum. Redundant sigmoid colon. No obstruction. No mucosal thickening. PELVIS: APPENDIX: No findings to suggest acute appendicitis. BLADDER: Unremarkable. No mass. REPRODUCTIVE: Mild prostatomegaly. CHEST, ABDOMEN and PELVIS: INTRAPERITONEAL SPACE: See below. BONES/JOINTS: No acute fracture. No dislocation. Multilevel degenerative changes of the thoracolu mbar spine with anterior bridging syndesmophytes and degenerative disc disease demonstrated at the L3 -4, L4-5, and L5-S1 levels. SOFT TISSUES: Fat-containing bilateral inguinal hernias. Nonspecific partially calcified soft tissue attenuating nodule in the left anterior abdomen ( series CT #401, axial image 165) is favored to reflect a small focus of fatty infarction or other elsa ign etiology. LYMPH NODES: Unremarkable. No enlarged lymph nodes. IMPRESSION: 1. No aortic aneurysm or dissection. No central pulmonary embolism. 2. No acute abnormalities in the chest, abdomen, or pelvis. 3. 1.9 x 1.4 cm indeterminate nodule in the left adrenal gland. If there is no history of maligna ncy consider a follow-up low dose, non-contrast adrenal CT or chemical-shift adrenal MRI in 12 months . If there is a history of malignancy recommend a low dose, non-emergent, non-contrast adrenal CT o r chemical-shift adrenal MRI follow-up study. 4. Cholelithiasis. Electronically signed by: Rg Block MD 01/12/2022 2:11 AM CDT Due to temporary technical issues with the PACS/Fluency reporting system, reports are being signed by the in house radiologists without review as a courtesy to insure prompt reporting. The interpreting radiologist is fully responsible for the content of the report.
[2022-01-12] MEDS ORDERED: ATORVASTATIN 40 MG TAB PO SCH (21:00)
--- NOTE | 2022-01-13 07:17 | ECHO ---
HEIGHT: 6 ft 0 in WEIGHT: 246 lb 14.684 oz DATE OF STUDY: 01/12/[address]: Merly Bryant 2-DIMENSIONAL: YES M.MODE: YES DOPPLER: YES COLOR FLOW: YES TDS: NO PORTABLE: YES DEFINITY: NO BUBBLE STUDY: NO DIAGNOSIS: CHEST PAIN CARDIAC HISTORY: CATHERIZATION: SURGERY: PROSTHETIC VALVE: PACEMAKER: MEASUREMENTS (cm) DIASTOLIC (NORMALS) SYSTOLIC (NORMALS) IVSd 1.1 (0.6-1.2) LA Diam 3.9 (1.9-4.0) LVEF 68% LVIDd 4.3 (3.5-5.7) LVIDs 2.7 (2.0-3.5) %FS 38% LVPWd 1.2 (0.6-1.2) Ao Diam 3.5 (2.0-3.7) 2 DIMENSIONAL ASSESSMENT: RIGHT ATRIUM: NORMAL LEFT ATRIUM: NORMAL RIGHT VENTRICLE: NORMAL LEFT VENTRICLE: NORMAL TRICUSPID VALVE: MILD TRICUSPID REGURGITATION MITRAL VALVE: MILD MITRAL REGURGITATION PULMONIC VALVE: NORMAL AORTIC VALVE: MILD AORTIC INSUFFICIENCY PERICARDIAL EFFUSION: NONE AORTIC ROOT: NORMAL LEFT VENTRICULAR WALL MOTION: NORMAL DOPPLER/COLOR FLOW: SEE BELOW COMMENTS: NORMAL LEFT VENTRICULAR EJECTION FRACTION 60-65%. NORMAL WALL MOTION. MILD (TRICUSPID REGURGITATION, MITRAL REGURGITATION, AORTIC INSUFFICIENCY) TECHNOLOGIST: KIKI BRUSH
[2022-01-14 06:35] VITALS: TEMP 98.9
[2022-01-14 06:49] VITALS: BP 108/75; O2SAT 94
== END 2022-01-12 17:15 | disposition home or self-care (01) ==
LOC: ER 19:48 → ERHOLD 01-12 01:55
PROVIDERS: ADMIT Internal Medicine; ATTEND Internal Medicine
DX: R07.89 Other chest pain (principal); E11.65 Type 2 diabetes mellitus with hyperglycemia; I10 Essential (primary) hypertension; E89.0 Postprocedural hypothyroidism; E27.8 Other specified disorders of adrenal gland; K80.20 Calculus of gallbladder without cholecystitis without obstruction; R12 Heartburn; R11.2 Nausea with vomiting, unspecified; Z79.82 Long term (current) use of aspirin; Z79.4 Long term (current) use of insulin; Z79.899 Other long term (current) drug therapy; Z88.5 Allergy status to narcotic agent; F17.200 Nicotine dependence, unspecified, uncomplicated; Z71.6 Tobacco abuse counseling; Z20.822 Contact with and (suspected) exposure to COVID-19
CPT/HCPCS: 93005; 93306; 85025 ×2; 80048 ×2; 36415; 83735; 80061; 82947 ×2; 84443; 83036; 84484 ×2; 71275; 74175; 71045; 99285; 87811; Q9967; J1815 ×2; J1650; G0378 ×2